=== PATIENT | male | born 1935 | race Caucasian/White ===

== ENCOUNTER 2016-08-08 08:24 | Inpatient (IN) | payer MEDICARE ==
--- NOTE | 2016-08-08 09:00 | ED ---
Fall HPI - General Chief Complaint: Fall Stated Complaint: FALL, LEFT SIDE RIB PAIN Time Seen by Provider: 08/08/16 08:50 Source: patient Mode of arrival: ambulatory - History of Present Illness Initial Comments: This is an 80-year-old male who was power washing his deck 3 days ago who was lying on her side while doing who complains of bruising and chest pain on the left side of his chest. He developed a bruise to his chin as well as his left chest wall. He's got multiple other small bruises to report he denies any headache blurry vision no nausea vomiting loss of function to his upper or lower extremities. He is on Coumadin. MD Complaint: fall - Related Data Home Medications Medication Instructions Recorded Confirmed Aspirin 81 mg PO HS 11/29/14 08/08/16 Doxazosin [Cardura] 4 mg PO HS 11/29/14 08/08/16 Finasteride [Proscar] 5 mg PO DAILY 11/29/14 08/08/16 Multivit-Min/FA/Lycopene/Lut 1 tab PO DAILY 11/29/14 08/08/16 [Centrum Silver Tablet] [place]-3 Fatty Acids/Fish Oil [Fish 1,000 mg PO BID 11/29/14 08/08/16 Oil 1,000 mg Softgel] Atorvastatin Calcium [Lipitor] 40 mg PO HS 07/07/15 08/08/16 Metoprolol Succinate (ER) [Toprol 25 mg PO HS 07/07/15 08/08/16 XL] Metoprolol Succinate (ER) [Toprol 50 mg PO QAM 07/07/15 08/08/16 XL] Warfarin Sodium [Coumadin] 6 mg PO SUMOWEFR 08/08/16 08/08/16 Warfarin Sodium [Coumadin] 6 mg PO TUTHSA 08/08/16 08/08/16 Allergies Allergy/AdvReac Type Severity Reaction Status Date / Time venom-honey bee Allergy Swelling Verified 08/08/16 09:57 [bee venom (honey bee)] Review of Systems ROS Statement: Those systems with pertinent positive or pertinent negative responses have been documented in the HPI. ROS Other: All systems not noted in ROS Statement are negative. Past Medical History Past Medical History: Atrial Fibrillation, Cancer, Prostate Disorder Additional Past Medical History / Comment(s): HX SKIN CA, SVT status post ablation History of Any Multi-Drug Resistant Organisms: None Reported Past Surgical History: Appendectomy, Heart Catheterization, Heart Catheterization With Stent, Tonsillectomy Additional Past Surgical History / Comment(s): SKIN GRAFT TO FOREHEAD R/T SKIN CA Past Anesthesia/Blood Transfusion Reactions: No Reported Reaction Past Psychological History: No Psychological Hx Reported Smoking Status: Former smoker Past Alcohol Use History: Occasional Past Drug Use History: None Reported - Past Family History Mother Family Medical History: Cancer Father Family Medical History: Cancer Additional Family Medical History / Comment(s): LEUKEMIA General Exam - General Exam Comments Initial Comments: This is a well-developed well-nourished awake alert oriented 3 male his [place] Coma Scale of 15 Limitations: no limitations General appearance: alert, in no apparent distress Head exam: Present: normocephalic, other (Swelling or bruising to the left anand no step-off no crepitation no open wounds) Eye exam: Present: normal appearance, PERRL, EOMI. Absent: scleral icterus, conjunctival injection, periorbital swelling ENT exam: Present: normal exam, mucous membranes moist Neck exam: Present: normal inspection. Absent: tenderness, meningismus, lymphadenopathy Respiratory exam: Present: normal lung sounds bilaterally, chest wall tenderness (Tenderness palpation of the anterior left chest wall and costochondral margin there is ecchymosis seen appears be dissecting caudally. No step-off no crepitation). Absent: respiratory distress, wheezes, rales, rhonchi, stridor Cardiovascular Exam: Present: regular rate, normal rhythm, normal heart sounds. Absent: systolic murmur, diastolic murmur, rubs, gallop, clicks GI/Abdominal exam: Present: soft, normal bowel sounds. Absent: distended, tenderness, guarding, rebound, rigid Extremities exam: Present: normal inspection, full ROM, normal capillary refill. Absent: tenderness, pedal edema, joint swelling, calf tenderness Back exam: Present: normal inspection Neurological exam: Present: alert, oriented X3, CN II-XII intact Psychiatric exam: Present: normal affect, normal mood Skin exam: Present: warm, dry, intact, normal color. Absent: rash Course Vital Signs 08/08/16 08/08/16 08/08/16 08:30 09:53 10:46 Temperature 96.9 F L Pulse Rate 100 88 88 Respiratory 18 16 Rate Blood Pressure 222/129 215/117 190/123 O2 Sat by Pulse 96 97 96 Oximetry 08/08/16 08/08/16 08/08/16 11:26 12:19 13:07 Temperature Pulse Rate 84 98 Respiratory 18 Rate Blood Pressure 200/136 216/126 200/122 O2 Sat by Pulse 96 92 L Oximetry 08/08/16 08/08/16 08/08/16 13:24 13:59 14:27 Temperature 97.0 F L Pulse Rate 94 92 Respiratory 18 Rate Blood Pressure 212/122 177/107 187/115 O2 Sat by Pulse 96 95 Oximetry - Reevaluation(s) Reevaluation #1: 08/08/16 14:53 I did reevaluate the patient on multiple occasions his blood pressure remained elevated in spite of multiple attempts to get it down. He will be admitted Medical Decision Making - Medical Decision Making I did discuss findings with the patient family members. The initial request and plan was to send the patient home on oral medications disorder is not felt to be nausea this time he will be admitted I did discuss the case with the covering physician Dr Todd. The patient will be admitted to Dr. Soni with cardiology consultation. - Lab Data Result diagrams: 08/08/16 08:50 08/08/16 08:50 Lab Results 08/08/16 08/08/16 08/08/16 Range/Units 08:50 08:50 08:50 WBC 7.1 (3.8-10.6) k/uL RBC 5.14 (4.30-5.90) m/uL Hgb 16.3 (13.0-17.5) gm/dL Hct 49.7 (39.0-53.0) % MCV 96.6 (80.0-100.0) fL MCH 31.7 (25.0-35.0) pg MCHC 32.8 (31.0-37.0) g/dL RDW 14.3 (11.5-15.5) % Plt Count 136 L (150-450) k/uL Neutrophils % 68 % Lymphocytes % 20 % Monocytes % 7 % Eosinophils % 3 % Basophils % 0 % Neutrophils # 4.9 (1.3-7.7) k/uL Lymphocytes # 1.4 (1.0-4.8) k/uL Monocytes # 0.5 (0-1.0) k/uL Eosinophils # 0.2 (0-0.7) k/uL Basophils # 0.0 (0-0.2) k/uL PT 21.5 H (9.0-12.0) sec INR 2.2 (<1.1) Sodium (137-145) mmol/L Potassium (3.5-5.1) mmol/L Chloride (98-107) mmol/L Carbon Dioxide (22-30) mmol/L Anion Gap mmol/L BUN (9-20) mg/dL Creatinine (0.66-1.25) mg/dL Est GFR (MDRD) Af Amer (>60 ml/min/1.73 sqM) Est GFR (MDRD) Non-Af (>60 ml/min/1.73 sqM) Glucose (74-99) mg/dL Calcium (8.4-10.2) mg/dL Magnesium (1.6-2.3) mg/dL Total Bilirubin (0.2-1.3) mg/dL AST (17-59) U/L ALT (21-72) U/L Alkaline Phosphatase (38-126) U/L Total Creatine Kinase 82 (55-170) U/L CK-MB (CK-2) 2.0 (0.0-2.4) ng/mL CK-MB (CK-2) Rel Index 2.4 NT-Pro-B Natriuret Pep pg/mL Total Protein (6.3-8.2) g/dL Albumin (3.5-5.0) g/dL 08/08/16 08/08/16 Range/Units 08:50 08:50 WBC (3.8-10.6) k/uL RBC (4.30-5.90) m/uL Hgb (13.0-17.5) gm/dL Hct (39.0-53.0) % MCV (80.0-100.0) fL MCH (25.0-35.0) pg MCHC (31.0-37.0) g/dL RDW (11.5-15.5) % Plt Count (150-450) k/uL Neutrophils % % Lymphocytes % % Monocytes % % Eosinophils % % Basophils % % Neutrophils # (1.3-7.7) k/uL Lymphocytes # (1.0-4.8) k/uL Monocytes # (0-1.0) k/uL Eosinophils # (0-0.7) k/uL Basophils # (0-0.2) k/uL PT (9.0-12.0) sec INR (<1.1) Sodium 141 (137-145) mmol/L Potassium 4.5 (3.5-5.1) mmol/L Chloride 104 (98-107) mmol/L Carbon Dioxide 27 (22-30) mmol/L Anion Gap 10 mmol/L BUN 22 H (9-20) mg/dL Creatinine 1.00 (0.66-1.25) mg/dL Est GFR (MDRD) Af Amer >60 (>60 ml/min/1.73 sqM) Est GFR (MDRD) Non-Af >60 (>60 ml/min/1.73 sqM) Glucose 117 H (74-99) mg/dL Calcium 9.4 (8.4-10.2) mg/dL Magnesium 2.1 (1.6-2.3) mg/dL Total Bilirubin 1.1 (0.2-1.3) mg/dL AST 30 (17-59) U/L ALT 52 (21-72) U/L Alkaline Phosphatase 92 (38-126) U/L Total Creatine Kinase (55-170) U/L CK-MB (CK-2) (0.0-2.4) ng/mL CK-MB (CK-2) Rel Index NT-Pro-B Natriuret Pep 3310 pg/mL Total Protein 7.0 (6.3-8.2) g/dL Albumin 4.3 (3.5-5.0) g/dL - EKG Data -: EKG Interpreted by Me (Atrial fibrillation QRS 94 QT/QTC 304/[address] configura) - Radiology Data Radiology results: report reviewed (I did review the imaging there is evidence of CHF.), image reviewed Critical Care Time Critical Care Time: Yes Critical Care Time: 39 minutes of critical care time which includes initial monitoring with a history physical labs and x-rays. Multiple reevaluation the patient response to therapy discuss with patient family members. Discussed with the [facility] physician. Initial orders and documentation of the above Disposition Clinical Impression: CHF (congestive heart failure), Accelerated hypertension, Chest wall contusion Disposition: ADMITTED IP TO THIS HOSP Condition: Stable Referrals: Piyush Vyas MD [Primary Care Provider] - 1-2 days
[2016-08-08 09:30] LABS: Basophils % (A) 0 %; CH 31.8; CHCM 33.1; Eosinophils # (A) 0.2 k/uL (0-0.7); Eosinophils % (A) 3 %; HCT 49.7 % (39.0-53.0); HDW 2.48; HGB 16.3 gm/dL (13.0-17.5); Luc # (Auto) 0.11; Luc % (Auto) 2; Lymphocytes # (A) 1.4 k/uL (1.0-4.8); Lymphocytes % (A) 20 %; MCH 31.7 pg (25.0-35.0); MCHC 32.8 g/dL (31.0-37.0); MCV 96.6 fL (80.0-100.0); Monocytes # (A) 0.5 k/uL (0-1.0); Monocytes % (A) 7 %; Neutrophils # (A) 4.9 k/uL (1.3-7.7); Neutrophils % (A) 68 %; RBC 5.14 m/uL (4.30-5.90); RDW 14.3 % (11.5-15.5); WBC 7.1 k/uL (3.8-10.6)
--- NOTE | 2016-08-08 09:38 | XR ---
EXAMINATION TYPE: XR chest 2V DATE OF EXAM: 08/08/2016 HISTORY: cough. REFERENCE: Previous study dated 08/10/2011. FINDINGS: The heart is enlarged. There is vascular congestion and subtle interstitial change. No pleu ral fluid is seen. IMPRESSION: FINDINGS MOST CONSISTENT WITH EARLY CONGESTIVE HEART FAILURE.
[2016-08-08 09:43] LABS: ALT 52 U/L (21-72); AST 30 U/L (17-59); Alkaline Phosphatase 92 U/L (38-126); Anion Gap 10 mmol/L; Blood Urea Nitrogen 22 mg/dL (9-20); Calcium 9.4 mg/dL (8.4-10.2); Carbon Dioxide 27 mmol/L (22-30); Chloride 104 mmol/L (98-107); Glucose 117 mg/dL (74-99); Magnesium 2.1 mg/dL (1.6-2.3); Non-African American GFR(MDRD) >60 (>60 ml/min/1.73 sqM); Potassium 4.5 mmol/L (3.5-5.1); Sodium 141 mmol/L (137-145); Total Bilirubin 1.1 mg/dL (0.2-1.3)
[2016-08-08 09:44] LABS: INR 2.2 (<1.1); Prothrombin Time 21.5 sec (9.0-12.0)
[2016-08-08] MEDS ORDERED: METOPROLOL SUCCINATE (ER) 50 MG TAB.ER.24H PO STA (10:27)
[2016-08-08] MEDS ORDERED: hydrALAZINE HCL 20 MG/ML 1 ML VIAL IVP STA (11:38)
[2016-08-08] MEDS ORDERED: FUROSEMIDE 10 MG/ML 4 ML VIAL IV STA (13:06)
[2016-08-08] MEDS ORDERED: NITROGLYCERIN OINT 1 INCH/GM PACKET TOPICAL STA (13:06)
[2016-08-08] MEDS ORDERED: METOPROLOL TARTRATE 5 MG/5 ML VIAL IVP STA (13:44)
[2016-08-08] MEDS ORDERED: LABETALOL 5 MG/ML VIAL MDV IVP STA (15:10)
[2016-08-08] MEDS ORDERED: LABETALOL 5 MG/ML VIAL MDV IVP PRN (15:12)
[2016-08-08] MEDS: SODIUM CHLORIDE 0.9% 1,000 ML IV SCH (16:59)
[2016-08-08] MEDS: NITROGLYCERIN OINT 1 INCH/GM PACKET TOPICAL SCH ×2 (17:02→21:14)
[2016-08-08] MEDS: WARFARIN 3 MG TAB PO SCH (17:03)
[2016-08-08] MEDS ORDERED: NON-FORMULARY DRUG (Omega-3 Fatty Acids/Fish Oil [Fish Oil 1,000 Mg Softgel] 1,000 MG) PO SCH (21:00)
[2016-08-08] MEDS ORDERED: ASPIRIN 81 MG CHEW PO SCH (21:00)
[2016-08-08] MEDS: METOPROLOL SUCCINATE (ER) 25 MG TAB.ER.24H PO SCH (21:10)
[2016-08-08] MEDS: ATORVASTATIN 40 MG TAB PO SCH (21:10)
[2016-08-08] MEDS: DOXAZOSIN 4 MG TAB PO SCH (21:10)
[2016-08-08] MEDS: FUROSEMIDE 10 MG/ML 4 ML VIAL IV SCH (23:03)
[2016-08-09] MEDS: MULTIVITAMINS, THERA 1 EACH TAB PO SCH (07:51)
[2016-08-09] MEDS: FINASTERIDE 5 MG TAB PO SCH (07:52)
[2016-08-09] MEDS: METOPROLOL SUCCINATE (ER) 50 MG TAB.ER.24H PO SCH (07:52)
[2016-08-09] MEDS: NITROGLYCERIN OINT 1 INCH/GM PACKET TOPICAL SCH ×2 (07:56→12:06)
[2016-08-09] MEDS ORDERED: traMADol 50 MG TAB PO PRN (10:32)
--- NOTE | 2016-08-09 10:36 | P.HPIM ---
History of Present Illness H&P Date: 08/09/16 Chief Complaint: Left rib pain This is a 80-year-old male with a known history of hypertension, chronic atrial fibrillation, SVT with previous cardiac ablation, coronary artery disease with cardiac stent and gallstone pancreatitis. Patient reports doing work in his garage on . He lost his balance and fell hitting his left side and chin. There is no loss of consciousness. Family is able to help him get up. He was doing fine, but as the days progressed into Tuesday and Tuesday his pain became very severe he came into the emergency room for further evaluation and treatment. Chest x-ray had shown findings of early CHF he was started on IV Lasix. Cardiology consulted. BNP was 3310. EKG had shown atrial fibrillation with a heart rate of 100. Troponin minimally elevated at 0.042. Patient still complaining of some left-sided rib pain. He also had accelerated hypertension and hypertensive emergency with blood pressure of 222/129 in the emergency room. He received IV blood pressure medications. Blood pressures show improvement. His likely related to his pain. Patient reports taking his home blood pressure medications. Patient denies any chest pain or shortness of breath. Denies any lower extremity edema. Denies any nausea or vomiting. Denies any bowel movement changes or urinary symptoms. Patient had no loss of consciousness. And does not have frequent falls. Review of Systems Please refer to HPI otherwise unremarkable Past Medical History Past Medical History: Atrial Fibrillation, Cancer, Hyperlipidemia, Hypertension , Prostate Disorder Additional Past Medical History / Comment(s): HX SKIN CA, SVT status post ablation. FAILED STRESS TEST IN [place] AND GOT 3 STENTS 04/2016, melanoma History of Any Multi-Drug Resistant Organisms: None Reported Past Surgical History: Appendectomy, Heart Catheterization, Heart Catheterization With Stent, Tonsillectomy Additional Past Surgical History / Comment(s): SKIN GRAFT TO FOREHEAD R/T SKIN CA Past Anesthesia/Blood Transfusion Reactions: No Reported Reaction Date of Last Stent Placement:: 04/2016 Smoking Status: Former smoker - Past Family History Mother Family Medical History: Cancer Father Family Medical History: Cancer Additional Family Medical History / Comment(s): LEUKEMIA Medications and Allergies Home Medications Medication Instructions Recorded Confirmed Type Aspirin 81 mg PO HS 11/29/14 08/08/16 History Doxazosin [Cardura] 4 mg PO HS 11/29/14 08/08/16 History Finasteride [Proscar] 5 mg PO DAILY 11/29/14 08/08/16 History Multivit-Min/FA/Lycopene/Lut 1 tab PO DAILY 11/29/14 08/08/16 History [Centrum Silver Tablet] [place]-3 Fatty Acids/Fish Oil [Fish 1,000 mg PO BID 11/29/14 08/08/16 History Oil 1,000 mg Softgel] Atorvastatin Calcium [Lipitor] 40 mg PO HS 07/07/15 08/08/16 History Metoprolol Succinate (ER) [Toprol 25 mg PO HS 07/07/15 08/08/16 History XL] Metoprolol Succinate (ER) [Toprol 50 mg PO QAM 07/07/15 08/08/16 History XL] Warfarin Sodium [Coumadin] 3 mg PO SUMOWEFR 08/08/16 08/08/16 History Warfarin Sodium [Coumadin] 6 mg PO TUTHSA 08/08/16 08/08/16 History Allergies Allergy/AdvReac Type Severity Reaction Status Date / Time venom-honey bee Allergy Swelling Verified 08/08/16 09:57 [bee venom (honey bee)] Physical Exam Vitals: Vital Signs Temp Pulse Pulse Resp BP BP Pulse Ox 08/09/16 08:00 97.0 F L 79 18 147/90 91 L 08/09/16 03:19 97.4 F L 84 16 121/79 94 L 08/08/16 23:40 97.7 F 85 16 111/70 93 L 08/08/16 20:00 98.1 F 89 16 131/75 94 L 08/08/16 15:45 97.0 F L 91 18 154/112 95 08/08/16 15:17 97.0 F L 86 16 186/105 96 08/08/16 15:07 89 20 176/111 98 08/08/16 14:27 92 187/115 95 08/08/16 13:59 177/107 08/08/16 13:24 97.0 F L 94 18 212/122 96 08/08/16 13:07 200/122 08/08/16 12:19 98 18 216/126 92 L 08/08/16 11:26 84 200/136 96 08/08/16 10:46 88 190/123 96 Intake and Output 08/08/16 08/09/1608/09/17 22:59 06:59 14:59 Intake Total 20 10 Balance 20 10 Intake: IV 20 10 Sodium Chloride 0.9% 1, 20 10 000 ml @ 20 mls/hr IV . Q24H ANTONIO Rx#:[id number] Other: Voiding Method Urinal Urinal Weight 95.708 kg 90.2 kg Head normocephalic Neck supple Lungs clear to auscultation bilaterally no wheezing or crackles. Tenderness with palpation of the left rib cage. No bruising or hematoma noted Heart regular rate and rhythm S1-S2, no rub or gallop Abdomen is soft nontender nondistended positive bowel sounds no hepatosplenomegaly Extremities no edema Neuro alert and orientated to 3 Results CBC & Chem 7: 08/08/16 08:50 08/08/16 08:50 Labs: Abnormal Lab Results - Last 24 Hours (Table) 08/09/16 Range/Units 03:22 Troponin I 0.042 H* (0.000-0.034) ng/mL Thrombosis Risk Factor Assmnt - Choose All That Apply Any of the Below Risk Factors Present?: No Other Risk Factors: No Other congenital or acquired thrombophilia - If yes, enter type in comment: Yes Thrombosis Risk Factor Assessment Level: Very Low Risk Assessment and Plan Plan: 1. Acute CHF exacerbation: Chest x-ray showing findings of early CHF. BNP elevated at 3310. Patient started on IV Lasix 40 every 12 hours in the emergency room. Cardiology has been consulted. Check echo 2. Fall with left-sided rib pain. X-rays of the left ribs will be completed. Add Ultram for pain control 3. Accelerated hypertension hypertensive emergency on admission. Likely related to pain. Patient was given IV hydralazine, IV labetalol and IV metoprolol. Blood pressures are doing better. Patient will be evaluated by cardiology 4. Chronic atrial fibrillation: Continue Coumadin. Monitor daily PT/INR's. Continue metoprolol 5. Hyperlipidemia 6. History of melanoma 7. History of coronary artery disease with cardiac stents 8. History of essential hypertension Consult physical therapy GI prophylaxis Pepcid and DVT prophylaxis Coumadin Time with Patient: Greater than 30 (Greater than 50% of the total time spent in counseling and coordination of care.I performed an examination of the patient and discussed their management with the physician Java [employer] Developer. I have reviewed the Physician Java [employer] Developer's notes and agree with the documented findings and plan of care)
[2016-08-09] MEDS: FUROSEMIDE 10 MG/ML 4 ML VIAL IV SCH (12:07)
[2016-08-09] MEDS: SODIUM CHLORIDE 0.9% 1,000 ML IV SCH (12:09)
[2016-08-09 13:03] VITALS: BMI 26.2
--- NOTE | 2016-08-09 14:39 | P.CRDCN ---
History of Present Illness Consult date: 08/09/16 Requesting physician: Joaquim Soni Reason for Consult (text): Elevated troponin Chief complaint: Fall History of present illness: This is an 80-year-old gentleman who follows with Dr. Dolores Deutsch in the office. He has a known history of coronary artery disease, most recently patient underwent stenting of the ramus intermediate and circumflex in February of this year in [place]. He also had unsuccessful angioplasty of the RCA performed in April of this year in [place]. History also of hypertension, hyperlipidemia, family history of premature coronary artery disease, prior SVT ablation. History also of paroxysmal atrial fibrillation. He presented to the hospital after experiencing a follow-up urine he states that he was working on a bottle washer machine in his garage, went to reach for something, became unsteady and fell. He denies any syncope. Overall the patient states she's been feeling well at home. Patient was having significant pain in his abdomen and her rib area and for this reason was ultimately brought to the hospital. BNP level was obtained which came back to be 3300, troponin was also minimally elevated urine patient's blood pressure was elevated in the emergency room. For all of these above reasons cardiology consultation was requested on this admission. Patient denies any overt shortness of breath, he denies having any chest discomfort. EKG shows atrial fibrillation with a controlled ventricular response. Chest x- ray revealed findings most consistent with early congestive heart failure. Platelet count 136, INR 2.2, potassium 4.5, BUN 22, creatinine 1.0. BNP 3310. Troponin 0.032, 042, Past Medical History Past Medical History: Atrial Fibrillation, Cancer, Hyperlipidemia, Hypertension , Prostate Disorder Additional Past Medical History / Comment(s): HX SKIN CA, SVT status post ablation. FAILED STRESS TEST IN [place] AND GOT 3 STENTS 04/2016, melanoma History of Any Multi-Drug Resistant Organisms: None Reported Past Surgical History: Appendectomy, Heart Catheterization, Heart Catheterization With Stent, Tonsillectomy Additional Past Surgical History / Comment(s): SKIN GRAFT TO FOREHEAD R/T SKIN CA Past Anesthesia/Blood Transfusion Reactions: No Reported Reaction Date of Last Stent Placement:: 04/2016 Smoking Status: Former smoker - Past Family History Mother Family Medical History: Cancer Father Family Medical History: Cancer Additional Family Medical History / Comment(s): LEUKEMIA Medications and Allergies Home Medications Medication Instructions Recorded Confirmed Type Aspirin 81 mg PO HS 11/29/14 08/08/16 History Doxazosin [Cardura] 4 mg PO HS 11/29/14 08/08/16 History Finasteride [Proscar] 5 mg PO DAILY 11/29/14 08/08/16 History Multivit-Min/FA/Lycopene/Lut 1 tab PO DAILY 11/29/14 08/08/16 History [Centrum Silver Tablet] [place]-3 Fatty Acids/Fish Oil [Fish 1,000 mg PO BID 11/29/14 08/08/16 History Oil 1,000 mg Softgel] Atorvastatin Calcium [Lipitor] 40 mg PO HS 07/07/15 08/08/16 History Metoprolol Succinate (ER) [Toprol 25 mg PO HS 07/07/15 08/08/16 History XL] Metoprolol Succinate (ER) [Toprol 50 mg PO QA 07/07/15 08/08/16 History XL] Warfarin Sodium [Coumadin] 3 mg PO SUMOWEFR 08/08/16 08/08/16 History Warfarin Sodium [Coumadin] 6 mg PO TUTHSA 08/08/16 08/08/16 History Allergies Allergy/AdvReac Type Severity Reaction Status Date / Time venom-honey bee Allergy Swelling Verified 08/08/16 09:57 [bee venom (honey bee)] Physical Exam Vitals: Vital Signs Temp Pulse Pulse Resp BP BP Pulse Ox 08/09/16 11:42 96.6 F L 86 18 119/67 92 L 08/09/16 08:00 97.0 F L 79 18 147/90 91 L 08/09/16 03:19 97.4 F L 84 16 121/79 94 L 08/08/16 23:40 97.7 F 85 16 111/70 93 L 08/08/16 20:00 98.1 F 89 16 131/75 94 L 08/08/16 15:45 97.0 F L 91 18 154/112 95 08/08/16 15:17 97.0 F L 86 16 186/105 96 08/08/16 15:07 89 20 176/111 98 08/08/16 14:27 92 187/115 95 Intake and Output 08/08/16 08/09/16 08/09/16 22:59 06:59 14:59 Intake Total 20 10 Balance 20 10 Intake: IV 20 10 Sodium Chloride 0.9% 1, 20 10 000 ml @ 20 mls/hr IV . Q24H ANTONIO Rx#:[id number] Other: Voiding Method Urinal Urinal Weight 95.708 kg 90.2 kg 90.2 kg Patient Weight 08/10/16 06:59 Weight 90.2 kg PHYSICAL EXAMINATION: HEENT: Head is atraumatic, normocephalic. Pupils equal, round. Neck is supple. There is no elevated jugular venous pressure. HEART EXAMINATION: Heart S1 and S2 irregular irregular CHEST EXAMINATION: Clear with mild diminished air entry to the bases. ABDOMEN: Soft, nontender. Bowel sounds are heard. No organomegaly noted. Positive left-sided rib pain EXTREMITIES: 2+ peripheral pulses with no evidence of peripheral edema and no calf tenderness noted. NEUROLOGIC patient is awake, alert and oriented -3. . Results 08/08/16 08:50 08/08/16 08:50 Cardiac Enzymes 08/08/16 08/09/16 Range/Units 17:35 03:22 Troponin I 0.032 0.042 H* (0.000-0.034) ng/mL Current Medications Generic Name Dose Route Start Last Admin Trade Name Freq PRN Reason Stop Dose Admin Aspirin 81 mg 08/08/16 21:00 08/08/16 21:10 Aspirin PO 81 mg HS ANTONIO Administration Atorvastatin Calcium 40 mg 08/08/16 21:00 08/08/16 21:10 Lipitor PO 40 mg HS ANTONIO Administration Doxazosin Mesylate 4 mg 08/08/16 21:00 08/08/16 21:10 Cardura PO 4 mg HS ANTONIO Administration Famotidine 20 mg 08/10/16 09:00 Pepcid PO DAILY ANTONIO Finasteride 5 mg 08/09/16 09:00 08/09/16 07:52 Proscar PO 5 mg DAILY ANTONIO Administration Furosemide 40 mg 08/09/16 00:00 08/09/16 12:07 Lasix IV 40 mg Q12H ANTONIO Administration Sodium Chloride 1,000 mls @ 20 mls/hr 08/08/16 15:00 08/09/16 12:09 Saline 0.9% IV Not Given .Q24H ANTONIO Labetalol HCl 20 mg 08/08/16 15:12 Trandate IVP Q10M PRN HTN SBP >180, DBP >110 Metoprolol Succinate 50 mg 08/09/16 09:00 08/09/16 07:52 Toprol Xl PO 50 mg QAM ANTONIO Administration Metoprolol Succinate 25 mg 08/08/16 21:00 08/08/16 21:10 Toprol Xl PO 25 mg HS ANTONIO Administration Multivitamins 1 each 08/09/16 12:00 08/09/16 07:51 Theragran PO 1 each 1200 [facility] Administration Nitroglycerin 1 inch 08/08/16 18:00 08/09/16 12:06 Nitro-Bid Oint TOPICAL 1 inch QID ANTONIO Administration Tramadol HCl 50 mg 08/09/16 10:32 Ultram PO BID PRN Pain Warfarin Sodium 6 mg 08/10/16 18:00 Coumadin PO TuThSa@1800 AN[facility]IO Warfarin Sodium 3 mg 08/08/16 18:00 08/08/16 17:03 Coumadin PO 3 mg [id number]@1800 [facility] Administration Intake and Output 08/08/16 08/09/16 08/09/16 22:59 06:59 14:59 Intake Total 20 10 Balance 20 10 Intake: IV 20 10 Sodium Chloride 0.9% 1, 20 10 000 ml @ 20 mls/hr IV . Q24H [facility] Rx#:[id number] Other: Voiding Method Urinal Urinal Weight 95.708 kg 90.2 kg 90.2 kg Patient Weight 08/10/16 06:59 Weight 90.2 kg 08/08/16 08:50 08/08/16 08:50 EKG Interpretations (text) EKG shows atrial fibrillation with a controlled ventricular response Assessment and Plan Plan: Assessment and plan #1 fall with no clear-cut evidence of syncope #2 diastolic congestive heart failure acute on chronic #3 accelerated hypertension #4 hyperlipidemia #5 chronic persistent atrial fibrillation, on Coumadin #6 recent stent placement in February of this year, on Brilinta at home #7 history of hypertension #8 history of melanoma #9 abnormal troponin, not consistent with acute coronary syndrome, likely secondary to oxygen supply and demand mismatch Plan We will obtain a repeat echocardiogram with Doppler study. Continue IV Lasix. We will also resume the patient's Brilinta 90 mg one tablet by mouth twice a day continue Coumadin, discontinue aspirin. Continue Nitropaste. Further recommendations to follow. DNP note has been reviewed, I agree with a documented findings and plan of care. Patient was seen and examined.
--- NOTE | 2016-08-09 15:14 | XR ---
Left RIBS HISTORY: Trauma and pain Comparison to chest x-ray 08/08/2016 4 views of the left RIBS Bone mineralization is reduced which may limit sensitivity. No displaced rib fracture evident. Lyons ry artery calcifications and possibly stent noted. IMPRESSION: Bone scan could be performed for increased sensitivity as indicated should occult fractur e be suspected clinically.
[2016-08-09] MEDS: LISINOPRIL 5 MG TAB PO SCH (17:06)
[2016-08-09] MEDS: CLOPIDOGREL 75 MG TAB PO SCH (17:06)
[2016-08-09 17:56] LABS: INR 2.2 (<1.1); Prothrombin Time 20.9 sec (9.0-12.0)
[2016-08-09] MEDS: WARFARIN 3 MG TAB PO SCH (19:02)
--- NOTE | 2016-08-09 20:34 | CONS ---
DATE OF CONSULTATION: ADDENDUM: Consultation dictated by Dee Richards DNP reviewed. This patient primarily came with a fall. Patient's blood pressure was significantly elevated in the emergency room. Patient has evidence of mild congestive heart failure on the chest x-ray and his BNP level is 3300. Borderline elevation in the troponin could be secondary to elevated blood pressure supply and demand mismatch. Patient is not having any symptoms of angina. Patient was taking Brilinta, Coumadin and aspirin at home. We will switch him to Coumadin and Plavix only and stopped the aspirin because of he is at a higher risk of bleeding with a triple drug therapy.
[2016-08-09] MEDS: ATORVASTATIN 40 MG TAB PO SCH (20:49)
[2016-08-09] MEDS: DOXAZOSIN 4 MG TAB PO SCH (20:49)
[2016-08-09] MEDS: METOPROLOL SUCCINATE (ER) 25 MG TAB.ER.24H PO SCH (20:49)
[2016-08-10] MEDS: FUROSEMIDE 10 MG/ML 4 ML VIAL IV SCH ×2 (00:37→10:50)
[2016-08-10 06:38] LABS: Basophils % (A) 0 %; CH 31.8; CHCM 33.5; Eosinophils # (A) 0.1 k/uL (0-0.7); Eosinophils % (A) 2 %; HCT 44.8 % (39.0-53.0); HDW 2.42; HGB 14.4 gm/dL (13.0-17.5); Luc # (Auto) 0.17; Luc % (Auto) 3; Lymphocytes # (A) 1.1 k/uL (1.0-4.8); Lymphocytes % (A) 17 %; MCH 30.7 pg (25.0-35.0); MCHC 32.2 g/dL (31.0-37.0); MCV 95.4 fL (80.0-100.0); Mean Platelet Volume 7.8; Monocytes # (A) 0.5 k/uL (0-1.0); Monocytes % (A) 8 %; Neutrophils # (A) 4.8 k/uL (1.3-7.7); Neutrophils % (A) 71 %; RDW 14.3 % (11.5-15.5); WBC 6.8 k/uL (3.8-10.6); WBC (Perox) 6.78
[2016-08-10 06:42] LABS: Prothrombin Time 19.7 sec (9.0-12.0)
[2016-08-10 06:52] LABS: ALT 43 U/L (21-72); AST 19 U/L (17-59); Alkaline Phosphatase 78 U/L (38-126); Anion Gap 9 mmol/L; Blood Urea Nitrogen 33 mg/dL (9-20); Calcium 8.9 mg/dL (8.4-10.2); Carbon Dioxide 29 mmol/L (22-30); Chloride 102 mmol/L (98-107); Glucose 111 mg/dL (74-99); Non-African American GFR(MDRD) 58 (>60 ml/min/1.73 sqM); Potassium 3.5 mmol/L (3.5-5.1); Sodium 140 mmol/L (137-145); Total Protein 5.5 g/dL (6.3-8.2)
[2016-08-10] MEDS: LISINOPRIL 5 MG TAB PO SCH (07:50)
[2016-08-10] MEDS: FINASTERIDE 5 MG TAB PO SCH (07:50)
[2016-08-10] MEDS: CLOPIDOGREL 75 MG TAB PO SCH (07:50)
[2016-08-10] MEDS: METOPROLOL SUCCINATE (ER) 50 MG TAB.ER.24H PO SCH (07:51)
[2016-08-10] MEDS: MULTIVITAMINS, THERA 1 EACH TAB PO SCH (07:51)
[2016-08-10] MEDS ORDERED: FAMOTIDINE 20 MG TAB PO SCH (09:00)
[2016-08-10 09:21] VITALS: RESP 18
--- NOTE | 2016-08-10 10:08 | ECHOF ---
Referral Reason:check EF MEASUREMENTS -------- HEIGHT: 182.9 cm WEIGHT: 89.8 kg BP: 130/40 IVSd: 1.5 cm (0.6 - 1.1) LVIDd: 4.6 cm (3.9 - 5.3) LVPWd: 1.4 cm (0.6 - 1.1) IVSs: 1.8 cm LVIDs: 3.8 cm LVPWs: 1.5 cm LA Diam: 4.6 cm (2.7 - 3.8) LAESV Index (A-L): 43.06 ml/m Ao Diam: 3.2 cm (2.0 - 3.7) LA Diam: 5.2 cm (2.7 - 3.8) MV EXCURSION: 20.390 mm (> 18.000) MV EF SLOPE: 111 mm/s (70 - 150) EPSS: 0.7 cm MV E Ananda: 0.67 m/s MV DecT: 179 ms MV A Ananda: 0.29 m/s MV E/A Ratio: 2.35 RAP: 5.00 mmHg RVSP: 19.02 mmHg FINDINGS -------- Atrial fibrillation. This was a technically adequate study. There is moderate concentric left ventricular hypertrophy. Overall left ventricular systolic function is low-normal with, an EF between 50 - 55 %. The right ventricle is normal in size. LA is moderately dilated 34-39 ml/m2 The right atrial size is normal. There is mild aortic valve sclerosis. Trace to mild aortic regurgitation. Mild mitral annular calcification present. Mild mitral regurgitation is present. Mild tricuspid regurgitation present. There is no evidence of pulmonary hypertension. The right ventricular systolic pressure, as measured by Doppler, is 19.02mmHg. There is no pulmonic regurgitation present. The aortic root size is normal. There is a small, generalized pericardial effusion present. CONCLUSIONS -------- 1. There is moderate concentric left ventricular hypertrophy. 2. The right ventricular systolic pressure, as measured by Doppler, is 19.02mmHg. 3. There is no pulmonic regurgitation present. 4. The aortic root size is normal. 5. There is a small, generalized pericardial effusion present. 6. Overall left ventricular systolic function is low-normal with, an EF between 50 - 55 %. 7. LA is moderately dilated 34-39 ml/m2 8. There is mild aortic valve sclerosis. 9. Trace to mild aortic regurgitation. 10. Mild mitral annular calcification present. 11. Mild mitral regurgitation is present. 12. Mild tricuspid regurgitation present. 13. There is no evidence of pulmonary hypertension. WINDOW CLERK: Irina Guidry RDCS
[2016-08-10] MEDS: SODIUM CHLORIDE 0.9% 1,000 ML IV SCH (15:12)
--- NOTE | 2016-08-10 15:48 | P.PN ---
Subjective Principal diagnosis: Fall This is an 80-year-old gentleman who follows with Dr. Dolores Deutsch in the office. He has a known history of coronary artery disease, most recently patient underwent stenting of the ramus intermediate and circumflex in February of this year in [place]. He also had unsuccessful angioplasty of the RCA performed in April of this year in [place]. History also of hypertension, hyperlipidemia, family history of premature coronary artery disease, prior SVT ablation. History also of paroxysmal atrial fibrillation. He presented to the hospital after experiencing a follow-up urine he states that he was working on a stator plate washer in his garage, went to reach for something, became unsteady and fell. He denies any syncope. Overall the patient states she's been feeling well at home. Patient was having significant pain in his abdomen and her rib area and for this reason was ultimately brought to the hospital. BNP level was obtained which came back to be 3300, troponin was also minimally elevated urine patient's blood pressure was elevated in the emergency room. For all of these above reasons cardiology consultation was requested on this admission. Patient was initiated on IV Lasix on admission, his weight today is down 5 kg from admission. We also discontinued the Brilinta and recommended that the patient take Plavix and Coumadin. Aspirin was also discontinued. Overall the patient feels well and is hoping to be discharged home today. From cardiology's perspective he may be able to be discharged to follow-up in the office post discharge Objective - Vital Signs Vital signs: Vital Signs Temp 97.6 F 08/10/16 11:50 Pulse 79 08/10/16 11:50 Resp 18 08/10/16 11:50 BP 105/68 08/10/16 11:50 Pulse Ox 93 L 08/10/16 11:50 Intake & Output 08/09/16 08/10/16 08/10/16 18:59 06:59 18:59 Intake Total 480 480 Output Total 600 600 Balance -120 -600 480 Weight 90.2 kg 90.7 kg Intake: Oral 480 480 Output: Urine 600 600 Other: Voiding Method Urinal Urinal Urinal # Voids 1 - Exam PHYSICAL EXAMINATION: HEENT: Head is atraumatic, normocephalic. Pupils equal, round. Neck is supple. There is no elevated jugular venous pressure. HEART EXAMINATION: Heart S1 and S2 irregular irregular CHEST EXAMINATION: Clear with mild diminished air entry to the bases. ABDOMEN: Soft, nontender. Bowel sounds are heard. No organomegaly noted. Positive left-sided rib pain EXTREMITIES: 2+ peripheral pulses with no evidence of peripheral edema and no calf tenderness noted. NEUROLOGIC patient is awake, alert and oriented -3. . - Labs CBC & Chem 7: 08/10/16 06:16 08/10/16 06:16 Labs: Abnormal Lab Results - Last 24 Hours (Table) 08/09/16 08/10/16 08/10/16 Range/Units 17:28 06:16 06:16 Plt Count 139 L (150-450) k/uL PT 20.9 H 19.7 H (9.0-12.0) sec BUN (9-20) mg/dL Glucose (74-99) mg/dL Total Protein (6.3-8.2) g/dL Albumin (3.5-5.0) g/dL 08/10/16 Range/Units 06:16 Plt Count (150-450) k/uL PT (9.0-12.0) sec BUN 33 H (9-20) mg/dL Glucose 111 H (74-99) mg/dL Total Protein 5.5 L (6.3-8.2) g/dL Albumin 3.4 L (3.5-5.0) g/dL Assessment and Plan Plan: Assessment and plan #1 fall with no clear-cut evidence of syncope #2 diastolic congestive heart failure acute on chronic #3 accelerated hypertension #4 hyperlipidemia #5 chronic persistent atrial fibrillation, on Coumadin #6 recent stent placement in February of this year, on Brilinta at home #7 history of hypertension #8 history of melanoma #9 abnormal troponin, not consistent with acute coronary syndrome, likely secondary to oxygen supply and demand mismatch Plan Echocardiogram with Doppler study revealed an ejection fraction of 50-55%. We' ll discontinue the IV Lasix and start the patient on Lasix 20 mg by mouth daily. Patient may be able to be discharged from cardiology's perspective to follow-up in the office post discharge. DNP note has been reviewed, I agree with a documented findings and plan of care. Patient was seen and examined.
[2016-08-10 16:01] VITALS: BP 119/73; PULSE 84; TEMP 97
--- NOTE | 2016-08-10 16:17 | P.DS ---
Providers Date of admission: 08/08/16 14:59 Expected date of discharge: 08/10/16 Attending physician: Joaquim Soni Consults: 08/08/16 14:59 Consult Physician Routine Consulting Provider: Joanne Deutsch Consult Reason/Comments: CHF, hypertension Do you want consulting provider notified?: Yes Primary care physician: Piyush Gutierrez [facility] Course: Diagnoses on discharge 1. Acute CHF exacerbation: Chest x-ray showing findings of early CHF. BNP elevated at 3310. Patient started on IV Lasix 40 every 12 hours in the emergency room. Cardiology has been consulted. Check echo 2. Fall with left-sided rib pain. X-rays of the left ribs will be completed. Add Ultram for pain control 3. Accelerated hypertension hypertensive emergency on admission. Likely related to pain. Patient was given IV hydralazine, IV labetalol and IV metoprolol. Blood pressures are doing better. Patient will be evaluated by cardiology 4. Chronic atrial fibrillation: Continue Coumadin. Monitor daily PT/INR's. Continue metoprolol 5. Hyperlipidemia 6. History of melanoma 7. History of coronary artery disease with cardiac stents 8. History of essential hypertension Hospital course This is a 80-year-old male with a known history of hypertension, chronic atrial fibrillation, SVT with previous cardiac ablation, coronary artery disease with cardiac stent and gallstone pancreatitis. Patient reports doing work in his garage on . He lost his balance and fell hitting his left side and chin. There is no loss of consciousness. Family is able to help him get up. He was doing fine, but as the days progressed into Tuesday and Tuesday his pain became very severe he came into the emergency room for further evaluation and treatment. Chest x-ray had shown findings of early CHF he was started on IV Lasix. Cardiology consulted. BNP was 3310. EKG had shown atrial fibrillation with a heart rate of 100. Troponin minimally elevated at 0.042. Patient still complaining of some left-sided rib pain. He also had accelerated hypertension and hypertensive emergency with blood pressure of 222/129 in the emergency room. He received IV blood pressure medications. Blood pressures show improvement. His likely related to his pain. Patient reports taking his home blood pressure medications. Patient denies any chest pain or shortness of breath. Denies any lower extremity edema. Denies any nausea or vomiting. Denies any bowel movement changes or urinary symptoms. Patient had no loss of consciousness. And does not have frequent falls. Patient received IV Lasix during this admission, he was evaluated by cardiology , he improved significantly, he was switched to oral Lasix and was discharged home on 08/10/2016 Due to high risk of bleeding aspirin was discontinued, Brilinta was switched to Plavix and coumadin was continued follow up with primary care physician within one week Follow-up with cardiology in 1-2 weeks Patient Condition at Discharge: Stable Plan - Discharge Summary New Discharge Prescriptions: New Clopidogrel [Plavix] 75 mg PO DAILY tab Furosemide [Lasix] 20 mg PO DAILY tab Lisinopril [Zestril] 5 mg PO DAILY tab Continue Arnot-3 Fatty Acids/Fish Oil [Fish Oil 1,000 mg Softgel] 1,000 mg PO BID Multivit-Min/FA/Lycopene/Lut [Centrum Silver Tablet] 1 tab PO DAILY Finasteride [Proscar] 5 mg PO DAILY Doxazosin [Cardura] 4 mg PO HS Atorvastatin Calcium [Lipitor] 40 mg PO HS Metoprolol Succinate (ER) [Toprol XL] 25 mg PO HS Metoprolol Succinate (ER) [Toprol XL] 50 mg PO QAM Warfarin Sodium [Coumadin] 6 mg PO TUTHSA Warfarin Sodium [Coumadin] 3 mg PO SUMOWEFR Discontinued Aspirin 81 mg PO HS Discharge Medication List Doxazosin [Cardura] 4 mg PO HS 11/29/14 [History] Finasteride [Proscar] 5 mg PO DAILY 11/29/14 [History] Multivit-Min/FA/Lycopene/Lut [Centrum Silver Tablet] 1 tab PO DAILY 11/29/14 [ History] Arnot-3 Fatty Acids/Fish Oil [Fish Oil 1,000 mg Softgel] 1,000 mg PO BID [History] Atorvastatin Calcium [Lipitor] 40 mg PO HS 07/07/15 [History] Metoprolol Succinate (ER) [Toprol XL] 25 mg PO HS 07/07/15 [History] Metoprolol Succinate (ER) [Toprol XL] 50 mg PO QAM 07/07/15 [History] Warfarin Sodium [Coumadin] 3 mg PO SUMOWEFR 08/08/16 [History] Warfarin Sodium [Coumadin] 6 mg PO TUTHSA 08/08/16 [History] Clopidogrel [Plavix] 75 mg PO DAILY tab 08/10/16 [Rx] Furosemide [Lasix] 20 mg PO DAILY tab 08/10/16 [Rx] Lisinopril [Zestril] 5 mg PO DAILY tab 08/10/16 [Rx] Follow up Appointment(s)/Referral(s): [facility], [NON-STAFF] - Piyush Vyas MD [Primary Care Provider] - 1-2 days
[2016-08-10] MEDS ORDERED: WARFARIN 3 MG TAB PO SCH (18:00)
[2016-08-11] MEDS ORDERED: FUROSEMIDE 20 MG TAB PO SCH (09:00)
== END 2016-08-10 17:06 | disposition home health service (06) | DRG 304 ==
LOC: EC 08:24 → 6SEL 14:59
PROVIDERS: ADMIT Internal Medicine; ATTEND Internal Medicine
DX: I16.1 Hypertensive emergency (principal); I50.33 Acute on chronic diastolic (congestive) heart failure; I48.1 Persistent atrial fibrillation; I48.2 Chronic atrial fibrillation; I11.0 Hypertensive heart disease with heart failure; I48.0 Paroxysmal atrial fibrillation; S80.12XA Contusion of left lower leg, initial encounter; S20.212A Contusion of left front wall of thorax, initial encounter; S00.83XA Contusion of other part of head, initial encounter; I25.10 Atherosclerotic heart disease of native coronary artery without angina pectoris; N42.9 Disorder of prostate, unspecified; R40.2410 Glasgow coma scale score 13-15, unspecified time; R74.8 Abnormal levels of other serum enzymes; E78.5 Hyperlipidemia, unspecified; Z85.820 Personal history of malignant melanoma of skin; Z87.891 Personal history of nicotine dependence; Z95.5 Presence of coronary angioplasty implant and graft; Z80.6 Family history of leukemia; Z79.82 Long term (current) use of aspirin; Z79.899 Other long term (current) drug therapy; Z79.01 Long term (current) use of anticoagulants; Z82.49 Family history of ischemic heart disease and other diseases of the circulatory system; Z86.79 Personal history of other diseases of the circulatory system; Z91.030 Bee allergy status; Z90.49 Acquired absence of other specified parts of digestive tract; Z71.3 Dietary counseling and surveillance; Z87.19 Personal history of other diseases of the digestive system; W01.10XA Fall on same level from slipping, tripping and stumbling with subsequent striking against unspecified object, initial encounter; Y93.H9 Activity, other involving exterior property and land maintenance, building and construction; Y92.015 Private garage of single-family (private) house as the place of occurrence of the external cause
CPT/HCPCS: 36415; 71020; 80053; 82550; 82553; 83735; 83880; 84484; 85025; 85610; 93005; 93306; 96374; 96375; 99285

== ENCOUNTER 2016-08-31 06:03 | Emergency (ER) | payer MEDICARE ==
[2016-08-31 07:11] LABS: Basophils # (A) 0.1 k/uL (0-0.2); Basophils % (A) 1 %; CH 31.7; CHCM 33.7; Eosinophils # (A) 0.2 k/uL (0-0.7); Eosinophils % (A) 2 %; HCT 45.9 % (39.0-53.0); HDW 2.52; HGB 15.3 gm/dL (13.0-17.5); Luc % (Auto) 1; Lymphocytes # (A) 0.9 k/uL (1.0-4.8); Lymphocytes % (A) 12 %; MCH 31.5 pg (25.0-35.0); MCHC 33.3 g/dL (31.0-37.0); MCV 94.4 fL (80.0-100.0); Mean Platelet Volume 7.6; Monocytes # (A) 0.5 k/uL (0-1.0); Monocytes % (A) 7 %; Neutrophils # (A) 5.6 k/uL (1.3-7.7); Neutrophils % (A) 77 %; RBC 4.86 m/uL (4.30-5.90); RDW 14.3 % (11.5-15.5); WBC 7.3 k/uL (3.8-10.6); WBC (Perox) 6.86
--- NOTE | 2016-08-31 07:11 | ED ---
Abdominal Pain HPI - General Source: patient Mode of arrival: wheelchair Limitations: no limitations - History of Present Illness MD Complaint: abdominal pain -: hour(s) Location: RUQ Radiation: none Migration to: no migration Severity: mild Quality: sharp Consistency: intermittent Improves With: nothing Worsens With: other (Palpation) Associated Symptoms: denies other symptoms <Gomez Vides - Last Filed: 08/31/16 07:07> <Darell Sheppard - Last Filed: 08/31/16 08:49> - General Chief Complaint: Abdominal Pain Stated Complaint: ABD PAIN - History of Present Illness Initial Comments: This patient is an 81-year-old man who presents to be evaluated for right upper quadrant tenderness. The patient's states that if he is not touched the area there is no pain. Describes it as sharp and intermittent. Again the pain is present only when he presses on the area. (Gomez Vides) - Related Data Home Medications Medication Instructions Recorded Confirmed Doxazosin [Cardura] 4 mg PO HS 11/29/14 08/31/16 Finasteride [Proscar] 5 mg PO DAILY 11/29/14 08/31/16 Multivit-Min/FA/Lycopene/Lut 1 tab PO DAILY 11/29/14 08/31/16 [Centrum Silver Tablet] [place]-3 Fatty Acids/Fish Oil [Fish 1,000 mg PO BID 11/29/14 08/31/16 Oil 1,000 mg Softgel] Atorvastatin Calcium [Lipitor] 40 mg PO HS 07/07/15 08/31/16 Metoprolol Succinate (ER) [Toprol 25 mg PO HS 07/07/15 08/31/16 XL] Metoprolol Succinate (ER) [Toprol 50 mg PO DAILY 07/07/15 08/31/16 XL] Warfarin Sodium [Coumadin] 3 mg PO SUMOWEFR 08/08/16 08/31/16 Warfarin Sodium [Coumadin] 6 mg PO TUTHSA 08/08/16 08/31/16 Tamsulosin HCl [Flomax] 0.4 mg PO DAILY 08/31/16 08/31/16 Previous Rx's Medication Instructions Recorded Clopidogrel [Plavix] 75 mg PO DAILY tab 08/10/16 Furosemide [Lasix] 20 mg PO DAILY tab 08/10/16 Lisinopril [Zestril] 5 mg PO DAILY tab 08/10/16 Allergies Allergy/AdvReac Type Severity Reaction Status Date / Time venom-honey bee Allergy Swelling Verified 08/31/16 07:10 [bee venom (honey bee)] Review of Systems ROS Other: All systems not noted in ROS Statement are negative. Constitutional: Denies: fever, chills Respiratory: Denies: cough, dyspnea Cardiovascular: Denies: chest pain, palpitations, syncope Gastrointestinal: Reports: as per HPI, abdominal pain. Denies: nausea, vomiting , diarrhea, constipation Genitourinary: Denies: dysuria, hematuria Musculoskeletal: Denies: back pain Skin: Denies: rash Neurological: Denies: headache, weakness, numbness <Gomez Vides - Last Filed: 08/31/16 07:07> ROS Other: All systems not noted in ROS Statement are negative. <Darell Sheppard - Last Filed: 08/31/16 08:49> ROS Statement: Those systems with pertinent positive or pertinent negative responses have been documented in the HPI. Past Medical History Past Medical History: Atrial Fibrillation, Cancer, Hyperlipidemia, Hypertension , Prostate Disorder Additional Past Medical History / Comment(s): HX SKIN CA, SVT status post ablation. FAILED STRESS TEST IN [place] AND GOT 3 STENTS 04/2016, melanoma History of Any Multi-Drug Resistant Organisms: None Reported Past Surgical History: Appendectomy, Heart Catheterization, Heart Catheterization With Stent, Tonsillectomy Additional Past Surgical History / Comment(s): SKIN GRAFT TO FOREHEAD R/T SKIN CA Past Anesthesia/Blood Transfusion Reactions: No Reported Reaction Date of Last Stent Placement:: 04/2016 Past Psychological History: No Psychological Hx Reported Smoking Status: Former smoker - Past Family History Mother Family Medical History: Cancer Father Family Medical History: Cancer Additional Family Medical History / Comment(s): LEUKEMIA <Gomez Vides - Last Filed: 08/31/16 07:07> General Exam Limitations: no limitations General appearance: alert, in no apparent distress Head exam: Present: atraumatic, normocephalic Eye exam: Present: normal appearance. Absent: scleral icterus, conjunctival injection ENT exam: Present: normal oropharynx Respiratory exam: Present: normal lung sounds bilaterally. Absent: respiratory distress, wheezes, rales, rhonchi, stridor, chest wall tenderness Cardiovascular Exam: Present: regular rate, normal rhythm, normal heart sounds. Absent: systolic murmur, diastolic murmur, rubs, gallop GI/Abdominal exam: Present: soft, tenderness (Patient has an area of tenderness in the right upper abdomen, along the anterior axillary line, approximately 6- 8cm below the costal margin. There is no rebound or guarding. The patient does have a lipoma palpable in the anterior abdominal wall but it is more towards the midline and the pain). Absent: distended, guarding, rebound, rigid , mass Extremities exam: Present: normal inspection, normal capillary refill. Absent: pedal edema, calf tenderness Back exam: Absent: CVA tenderness (R), CVA tenderness (L) Neurological exam: Present: alert Skin exam: Present: warm, dry, intact, normal color. Absent: rash <Gomez Vides - Last Filed: 08/31/16 07:07> Medical Decision Making <Gomez Vides - Last Filed: 08/31/16 07:07> - Lab Data Result diagrams: 08/31/16 06:48 08/31/16 06:48 - Radiology Data Radiology results: report reviewed (Computed tomography scan of the abdomen and pelvis shows no acute intra-abdominal process. Moderate fecal stasis.) <Darell Sheppard - Last Filed: 08/31/16 08:49> - Medical Decision Making Patient reevaluated and resting comfortably in bed. Abdomen soft with mild tenderness to deep palpation right upper abdomen. Patient states symptoms started with movement and believes he may have pulled a muscle. Patient states symptoms do not bother him when lying there only with movement. Patient and family updated on results and need for follow-up. (Darell Sheppard) - Lab Data Lab Results 08/31/16 08/31/16 08/31/16 Range/Units 06:48 06:48 06:48 WBC 7.3 (3.8-10.6) k/uL RBC 4.86 (4.30-5.90) m/uL Hgb 15.3 (13.0-17.5) gm/dL Hct 45.9 (39.0-53.0) % MCV 94.4 (80.0-100.0) fL MCH 31.5 (25.0-35.0) pg MCHC 33.3 (31.0-37.0) g/dL RDW 14.3 (11.5-15.5) % Plt Count 136 L (150-450) k/uL Neutrophils % 77 % Lymphocytes % 12 % Monocytes % 7 % Eosinophils % 2 % Basophils % 1 % Neutrophils # 5.6 (1.3-7.7) k/uL Lymphocytes # 0.9 L (1.0-4.8) k/uL Monocytes # 0.5 (0-1.0) k/uL Eosinophils # 0.2 (0-0.7) k/uL Basophils # 0.1 (0-0.2) k/uL Sodium 142 (137-145) mmol/L Potassium 3.9 (3.5-5.1) mmol/L Chloride 103 (98-107) mmol/L Carbon Dioxide 29 (22-30) mmol/L Anion Gap 10 mmol/L BUN 19 (9-20) mg/dL Creatinine 1.02 (0.66-1.25) mg/dL Est GFR (MDRD) Af Amer >60 (>60 ml/min/1.73 sqM) Est GFR (MDRD) Non-Af >60 (>60 ml/min/1.73 sqM) Glucose 102 H (74-99) mg/dL Calcium 9.1 (8.4-10.2) mg/dL Total Bilirubin 1.0 (0.2-1.3) mg/dL AST 26 (17-59) U/L ALT 51 (21-72) U/L Alkaline Phosphatase 85 (38-126) U/L Total Protein 6.5 (6.3-8.2) g/dL Albumin 4.0 (3.5-5.0) g/dL Amylase 31 (30-110) U/L Lipase 51 (23-300) U/L Urine Color Yellow Urine Appearance Cloudy (Clear) Urine pH 7.5 (5.0-8.0) Ur Specific [place] 1.012 (1.001-1.035) Urine Protein Trace H (Negative) Urine Glucose (UA) Negative (Negative) Urine Ketones Negative (Negative) Urine Blood Negative (Negative) Urine Nitrite Negative (Negative) Urine Bilirubin Negative (Negative) Urine Urobilinogen <2.0 (<2.0) mg/dL Ur Leukocyte Esterase Negative (Negative) Urine WBC 5 (0-5) /hpf Amorphous Sediment Few H (None) /hpf Disposition <Gomez Vides - Last Filed: 08/31/16 07:07> Time of Disposition: 08:49 <Darell Sheppard - Last Filed: 08/31/16 08:49> Clinical Impression: Abdominal pain Disposition: HOME SELF-CARE Condition: Stable Instructions: Abdominal Pain (ED), Constipation (ED), High Fiber Diet (ED) Additional Instructions: Please follow-up with your doctor this week. Return for fever, increased pain, worsening or changing symptoms or other concerns. [id number] prune juice , Colace(stool softener), Metamucil. Referrals: Piyush Vyas MD [Primary Care Provider] - 1-2 days
[2016-08-31 07:20] LABS: Amorphous Sediment,Urine Few /hpf; Appearance,Urine Cloudy (Clear); Bilirubin,Urine Negative (Negative); Glucose,Urine (UA) Negative (Negative); Ketones,Urine Negative (Negative); Leukocyte Esterase,Urine Negative (Negative); Nitrite,Urine Negative (Negative); PH, Urine 7.5 (5.0-8.0); Particle Count 7355; Protein,Urine Trace (Negative); Specific Gravity,Urine 1.012 (1.001-1.035); UA Billing (MACRO vs. MICRO) MICRO; Urobilinogen,Urine <2.0 mg/dL (<2.0); WBC,Urine 5 /hpf (0-5)
[2016-08-31 07:24] LABS: ALT 51 U/L (21-72); AST 26 U/L (17-59); Alkaline Phosphatase 85 U/L (38-126); Amylase 31 U/L (30-110); Anion Gap 10 mmol/L; Blood Urea Nitrogen 19 mg/dL (9-20); Calcium 9.1 mg/dL (8.4-10.2); Carbon Dioxide 29 mmol/L (22-30); Chloride 103 mmol/L (98-107); Glucose 102 mg/dL (74-99); Non-African American GFR(MDRD) >60 (>60 ml/min/1.73 sqM); Potassium 3.9 mmol/L (3.5-5.1); Sodium 142 mmol/L (137-145); Total Protein 6.5 g/dL (6.3-8.2)
[2016-08-31] MEDS ORDERED: ENALAPRILAT 1.25 MG/ML 1 ML VIAL IVP STA (07:32)
[2016-08-31] MEDS ORDERED: RX INFO: IV CONTRAST WAS GIVEN 1 EACH MISC MISCELLANE PRN (07:32)
--- NOTE | 2016-08-31 08:21 | CT ---
EXAMINATION TYPE: CT abdomen pelvis w con DATE OF EXAM: 08/31/2016 COMPARISON: 07/08/2015 HISTORY: Rt lateral abdomen pain CT DLP: 1429.2 mGycm CONTRAST: CT scan of the abdomen and pelvis is performed without Oral Contrast and with IV Contrast, patient in jected with 100 mL of Omnipaque 300. FINDINGS: LUNG BASES-: No visible nodule. There is cardiomegaly with pericardial effusion as noted previously . Small right-sided pleural effusion with mild basilar patchy density may reflect atelectasis or deve loping infiltrate. LIVER/GB: No evidence of cholelithiasis or gallbladder wall thickening. Multiple hepatic cysts are ag ain noted. There is a large peripherally enhancing mass within the knee right hepatic lobe with near complete filling in on delayed images likely reflecting a giant hepatic hemangioma measuring 10 x 6 c m. No evidence for hemorrhage at this time. PANCREAS: No inflammation. No distinct mass. SPLEEN: No splenic enlargement. No lesion seen. ADRENALS: No nodule. No thickening. KIDNEYS/BLADDER: No hydronephrosis. No nephrolithiasis. Multiple stable simple cysts of the right kidney. Urinary bladder grossly unremarkable. BOWEL: There is nonvisualization of the appendix. No inflammatory process is identified within the ri ght lower quadrant. Moderate fecal stasis. Normal bowel caliber. No inflammation. Small sliding-typ e hiatal hernia. GENITAL ORGANS: Enlarged prostate gland. LYMPH NODES: No greater than 1cm abdominal or pelvic lymph nodes are appreciated. AORTA: No significant abnormality. OSSEOUS STRUCTURES: Multilevel degenerative disc disease. Chronic loss of height of L1. OTHER: Fat-containing inguinal hernias. IMPRESSION: 1. No acute intra-abdominal process is appreciated at this time. 2. Cardiomegaly with pericardial effusion. Small right basilar pleural effusion with mild patchy dens ity. 3. Moderate fecal stasis. 4. Giant hepatic hemangioma. 5. Hepatic and right renal cysts.
[2016-08-31 08:43] VITALS: RESP 16
[2016-08-31 09:06] VITALS: BP 189/98; PULSE 71; TEMP 97.6
== END 2016-08-31 09:05 | disposition home or self-care (01) ==
LOC: EC 06:03
DX: R10.11 Right upper quadrant pain (principal); D17.39 Benign lipomatous neoplasm of skin and subcutaneous tissue of other sites; E78.5 Hyperlipidemia, unspecified; I10 Essential (primary) hypertension; I48.91 Unspecified atrial fibrillation; N42.9 Disorder of prostate, unspecified; Z87.891 Personal history of nicotine dependence; Z79.01 Long term (current) use of anticoagulants; Z79.899 Other long term (current) drug therapy; Z91.030 Bee allergy status; Z90.49 Acquired absence of other specified parts of digestive tract
CPT/HCPCS: 36415; 80053; 82150; 83690; 85025; 81001; 74177; 99284; 96374; Q9967

== ENCOUNTER 2016-10-02 19:33 | Inpatient (IN) | payer MEDICARE ==
[2016-10-02 20:03] LABS: Basophils % (A) 0 %; CH 32.5; CHCM 33.7; Eosinophils # (A) 0.1 k/uL (0-0.7); Eosinophils % (A) 2 %; HCT 46.6 % (39.0-53.0); HDW 2.51; HGB 15.2 gm/dL (13.0-17.5); Luc # (Auto) 0.08; Luc % (Auto) 1; Lymphocytes # (A) 0.8 k/uL (1.0-4.8); Lymphocytes % (A) 12 %; MCH 31.5 pg (25.0-35.0); MCHC 32.6 g/dL (31.0-37.0); MCV 96.8 fL (80.0-100.0); Mean Platelet Volume 8.7; Monocytes # (A) 0.4 k/uL (0-1.0); Monocytes % (A) 5 %; Neutrophils # (A) 5.3 k/uL (1.3-7.7); Neutrophils % (A) 79 %; RBC 4.82 m/uL (4.30-5.90); RDW 15.4 % (11.5-15.5); WBC 6.7 k/uL (3.8-10.6)
[2016-10-02 20:07] LABS: INR 1.4 (<1.2); Prothrombin Time 14.1 sec (9.0-12.0)
--- NOTE | 2016-10-02 20:08 | ED ---
Dizziness HPI - General Source: patient, family, RN notes reviewed Mode of arrival: wheelchair Limitations: no limitations - History of Present Illness MD Complaint: dizziness <Gorge Acuña - Last Filed: 10/02/16 20:57> <Gorge Downey - Last Filed: 10/02/16 22:27> - General Chief Complaint: Dizziness Stated Complaint: fall; facial injury Time Seen by Provider: 10/02/16 19:41 - History of Present Illness Initial Comments: This 81-year-old male who states he was applying fertilizer home when he developed dizziness loss his balance and fell onto his face. No loss of consciousness he complains of facial pain and left hand pain. He denies any neck or back pain a loss of function is upper or lower extremities. He is on Coumadin. He sustained multiple abrasions to his face and complains of some left hand second third knuckle tenderness. No other injuries reported. No headache no blurry vision. (Gorge Acuña) - Related Data Home Medications Medication Instructions Recorded Confirmed Doxazosin [Cardura] 4 mg PO HS 11/29/14 10/02/16 Finasteride [Proscar] 5 mg PO DAILY 11/29/14 10/02/16 Multivit-Min/FA/Lycopene/Lut 1 tab PO DAILY 11/29/14 10/02/16 [Centrum Silver Tablet] Atorvastatin Calcium [Lipitor] 40 mg PO HS 07/07/15 10/02/16 Metoprolol Succinate (ER) [Toprol 25 mg PO HS 07/07/15 10/02/16 XL] Fish Oil/Dha/Epa [Fish Oil 1,200 1 cap PO DAILY 10/02/16 10/02/16 mg Fish Oil] Furosemide [Lasix] 20 mg PO DAILY 10/02/16 10/02/16 Warfarin [Coumadin] 2.5 mg PO MOWEFR 10/02/16 10/02/16 Warfarin [Coumadin] 5 mg PO SUTUTHSA 10/02/16 10/02/16 Previous Rx's Medication Instructions Recorded Clopidogrel [Plavix] 75 mg PO DAILY tab 08/10/16 Lisinopril [Zestril] 5 mg PO DAILY tab 08/10/16 Allergies Allergy/AdvReac Type Severity Reaction Status Date / Time venom-honey bee Allergy Swelling Verified 10/02/16 20:18 [bee venom (honey bee)] Review of Systems ROS Other: All systems not noted in ROS Statement are negative. <Gorge Acuña - Last Filed: 10/02/16 20:57> ROS Other: All systems not noted in ROS Statement are negative. <Gorge Downey - Last Filed: 10/02/16 22:27> ROS Statement: Those systems with pertinent positive or pertinent negative responses have been documented in the HPI. Past Medical History Past Medical History: Atrial Fibrillation, Cancer, Hyperlipidemia, Hypertension , Prostate Disorder Additional Past Medical History / Comment(s): HX SKIN CA, SVT status post ablation. FAILED STRESS TEST IN [place] AND GOT 3 STENTS 04/2016, melanoma History of Any Multi-Drug Resistant Organisms: None Reported Past Surgical History: Appendectomy, Heart Catheterization, Heart Catheterization With Stent, Tonsillectomy Additional Past Surgical History / Comment(s): SKIN GRAFT TO FOREHEAD R/T SKIN CA Past Anesthesia/Blood Transfusion Reactions: No Reported Reaction Date of Last Stent Placement:: 04/2016 Past Psychological History: No Psychological Hx Reported Smoking Status: Former smoker Past Alcohol Use History: None Reported Past Drug Use History: None Reported - Past Family History Mother Family Medical History: Cancer Father Family Medical History: Cancer Additional Family Medical History / Comment(s): LEUKEMIA <Gorge Acuña - Last Filed: 10/02/16 20:57> General Exam Limitations: no limitations General appearance: alert, in no apparent distress Head exam: Present: normocephalic, other (Multiple abrasions over the forehead the right inferior lateral orbit and nasal below the right naris. There right lower lip is edematous with a superficial abrasion the dentition appears to be intact. There is some dry blood in the left naris. Auditory canals are clear) Eye exam: Present: normal appearance, PERRL, EOMI. Absent: scleral icterus, conjunctival injection, periorbital swelling ENT exam: Present: mucous membranes moist, TM's normal bilaterally, other (As above) Neck exam: Present: normal inspection. Absent: tenderness, meningismus, lymphadenopathy Respiratory exam: Present: normal lung sounds bilaterally. Absent: respiratory distress, wheezes, rales, rhonchi, stridor Cardiovascular Exam: Present: normal rhythm, irregular rhythm. Absent: systolic murmur, diastolic murmur, rubs, gallop, clicks Rectal exam: Present: deferred Extremities exam: Present: full ROM, tenderness, normal capillary refill, other (Ecchymosis and edema seen over the second and especially of her dorsal neck carpal phalangeal joint. Tenderness palpation there is however 4H Fadi no definite step-off or crepitation.) Back exam: Present: normal inspection Neurological exam: Present: alert, oriented X3, CN II-XII intact Psychiatric exam: Present: normal affect, normal mood Skin exam: Present: warm, dry, normal color, other (Otherwise as described above ). Absent: intact <Gorge Acuña - Last Filed: 10/02/16 20:57> Head exam: Present: other <Gorge Downey - Last Filed: 10/02/16 22:27> - General Exam Comments Initial Comments: This is a well up well-nourished awake alert oriented 3 male his [place] Coma Scale of 15 (Gorge Acuña) Course <Gorge Acuña - Last Filed: 10/02/16 20:57> <Gorge Downey - Last Filed: 10/02/16 22:27> Vital Signs 10/02/16 10/02/16 10/02/16 19:37 20:30 22:00 Temperature 98.2 F 97.7 F Pulse Rate 86 85 89 Respiratory 20 22 18 Rate Blood Pressure 212/117 203/119 195/110 O2 Sat by Pulse 97 97 97 Oximetry 10/02/16 22:15 Temperature Pulse Rate 88 Respiratory 18 Rate Blood Pressure 207/105 O2 Sat by Pulse 97 Oximetry - Reevaluation(s) Reevaluation #1: 10/02/16 20:57 The patient will be endorsed to Dr. Downey who will make the final disposition (Gorge Acuña) 10/02/16 22:22 I did reevaluate this patient after sign out. (Gorge Downey) EKG Findings - EKG Results: EKG: interpreted by ERMD (Atrial fibrillation rate of 82 QRS of 92 QT since QTC of 370/[address]-T wave changes.) <Gorge Acuña - Last Filed: 10/02/16 20:57> - EKG Comments: EKG Findings:: EKG shows a 2 fibrillation with a ventricular rate 82, QRS duration 92, QTC 432, there is no signs of ischemia. There does appear to be organized atrial activity which may be a flutter. <Gorge Downey - Last Filed: 10/02/16 22:27> Medical Decision Making - Lab Data Result diagrams: 10/02/16 19:55 10/02/16 19:55 <Gorge Acuña - Last Filed: 10/02/16 20:57> - Lab Data Result diagrams: 10/02/16 19:55 10/02/16 19:55 <Gorge Downey - Last Filed: 10/02/16 22:27> - Medical Decision Making Patient was signed out from Dr. Acuña at shift change. Patient had a near syncopal episode with fall. He is on Coumadin for atrial fibrillation. INR 1.4 Patient denied any chest pain shortness of breath or palpitations prior to fall. No abdominal pain. Denied dysuria. Denies fever or chills. Head CT shows no intracranial hemorrhage or acute process. There was trauma to the left hand, x-ray revealed no acute bony abilities, there is large dorsal hematoma. Laboratory studies including CBC and CMP are unremarkable. Urinalysis is positive for UTI. This may be related to the patient's dizziness and lightheadedness. He is treated with ceftriaxone in the emergency department. Urine culture is pending. He does have a history of BPH. Given subtherapeutic INR patient will not be transferred for closed head injury on Coumadin. He will be evaluated at this hospital for near-syncope, hypotension, and UTI. Diagnosis: Near syncope, closed head injury, UTI, hypertension. (Gorge Downey) - Lab Data Lab Results 10/02/16 10/02/16 10/02/16 Range/Units 19:55 19:55 19:55 WBC 6.7 (3.8-10.6) k/uL RBC 4.82 (4.30-5.90) m/uL Hgb 15.2 (13.0-17.5) gm/dL Hct 46.6 (39.0-53.0) % MCV 96.8 (80.0-100.0) fL MCH 31.5 (25.0-35.0) pg MCHC 32.6 (31.0-37.0) g/dL RDW 15.4 (11.5-15.5) % Plt Count 133 L (150-450) k/uL Neutrophils % 79 % Lymphocytes % 12 % Monocytes % 5 % Eosinophils % 2 % Basophils % 0 % Neutrophils # 5.3 (1.3-7.7) k/uL Lymphocytes # 0.8 L (1.0-4.8) k/uL Monocytes # 0.4 (0-1.0) k/uL Eosinophils # 0.1 (0-0.7) k/uL Basophils # 0.0 (0-0.2) k/uL PT 14.1 H (9.0-12.0) sec INR 1.4 H (<1.2) Sodium 143 (137-145) mmol/L Potassium 4.2 (3.5-5.1) mmol/L Chloride 104 (98-107) mmol/L Carbon Dioxide 29 (22-30) mmol/L Anion Gap 10 mmol/L BUN 24 H (9-20) mg/dL Creatinine 1.20 (0.66-1.25) mg/dL Est GFR (MDRD) Af Amer >60 (>60 ml/min/1.73 sqM) Est GFR (MDRD) Non-Af 58 (>60 ml/min/1.73 sqM) Glucose 102 H (74-99) mg/dL Calcium 9.4 (8.4-10.2) mg/dL Magnesium 2.2 (1.6-2.3) mg/dL Total Bilirubin 0.6 (0.2-1.3) mg/dL AST 27 (17-59) U/L ALT 43 (21-72) U/L Alkaline Phosphatase 86 (38-126) U/L Total Creatine Kinase (55-170) U/L CK-MB (CK-2) (0.0-2.4) ng/mL CK-MB (CK-2) Rel Index Troponin I (0.000-0.034) ng/mL Total Protein 6.4 (6.3-8.2) g/dL Albumin 4.0 (3.5-5.0) g/dL Urine Color Urine Appearance (Clear) Urine pH (5.0-8.0) Ur Specific [place] (1.001-1.035) Urine Protein (Negative) Urine Glucose (UA) (Negative) Urine Ketones (Negative) Urine Blood (Negative) Urine Nitrite (Negative) Urine Bilirubin (Negative) Urine Urobilinogen (<2.0) mg/dL Ur Leukocyte Esterase (Negative) Urine RBC (0-5) /hpf Urine WBC (0-5) /hpf Urine WBC Clumps (None) /hpf Urine Bacteria (None) /hpf Urine Mucus (None) /hpf Urine Yeast (Budding) (None) /hpf 10/02/16 10/02/16 Range/Units 19:55 20:25 WBC (3.8-10.6) k/uL RBC (4.30-5.90) m/uL Hgb (13.0-17.5) gm/dL Hct (39.0-53.0) % MCV (80.0-100.0) fL MCH (25.0-35.0) pg MCHC (31.0-37.0) g/dL RDW (11.5-15.5) % Plt Count (150-450) k/uL Neutrophils % % Lymphocytes % % Monocytes % % Eosinophils % % Basophils % % Neutrophils # (1.3-7.7) k/uL Lymphocytes # (1.0-4.8) k/uL Monocytes # (0-1.0) k/uL Eosinophils # (0-0.7) k/uL Basophils # (0-0.2) k/uL PT (9.0-12.0) sec INR (<1.2) Sodium (137-145) mmol/L Potassium (3.5-5.1) mmol/L Chloride (98-107) mmol/L Carbon Dioxide (22-30) mmol/L Anion Gap mmol/L BUN (9-20) mg/dL Creatinine (0.66-1.25) mg/dL Est GFR (MDRD) Af Amer (>60 ml/min/1.73 sqM) Est GFR (MDRD) Non-Af (>60 ml/min/1.73 sqM) Glucose (74-99) mg/dL Calcium (8.4-10.2) mg/dL Magnesium (1.6-2.3) mg/dL Total Bilirubin (0.2-1.3) mg/dL AST (17-59) U/L ALT (21-72) U/L Alkaline Phosphatase (38-126) U/L Total Creatine Kinase 106 (55-170) U/L CK-MB (CK-2) 2.6 H* (0.0-2.4) ng/mL CK-MB (CK-2) Rel Index 2.5 Troponin I 0.016 (0.000-0.034) ng/mL Total Protein (6.3-8.2) g/dL Albumin (3.5-5.0) g/dL Urine Color Yellow Urine Appearance Cloudy (Clear) Urine pH 5.5 (5.0-8.0) Ur Specific [place] 1.018 (1.001-1.035) Urine Protein 1+ H (Negative) Urine Glucose (UA) Negative (Negative) Urine Ketones Negative (Negative) Urine Blood Small H (Negative) Urine Nitrite Negative (Negative) Urine Bilirubin Negative (Negative) Urine Urobilinogen <2.0 (<2.0) mg/dL Ur Leukocyte Esterase Large H (Negative) Urine RBC 8 H (0-5) /hpf Urine WBC >182 H (0-5) /hpf Urine WBC Clumps Moderate H (None) /hpf Urine Bacteria Few H (None) /hpf Urine Mucus Occasional H (None) /hpf Urine Yeast (Budding) Few H (None) /hpf Critical Care Time Critical Care Time: Yes Total Critical Care Time: 35 <Gorge Downey N - Last Filed: 10/02/16 22:27> Disposition <Gorge Acuña - Last Filed: 10/02/16 20:57> Decision to Admit Reason: Admit from EC Decision Date: 10/02/16 Decision Time: 22:05 <Gorge Downey - Last Filed: 10/02/16 22:27> Clinical Impression: Near syncope, UTI (urinary tract infection), Hypertension Disposition: ADMITTED IP TO THIS [facility] Condition: Stable Referrals: Piyush Vyas MD [Primary Care Provider] - 1-2 days
--- NOTE | 2016-10-02 20:16 | XR ---
EXAMINATION TYPE: XR hand complete LT DATE OF EXAM: 10/02/2016 COMPARISON: NONE HISTORY: Pain hematoma TECHNIQUE: 3 view left hand FINDINGS: The ring is on the ring finger at the time of this examination. There is soft tissue swelli ng over the dorsum of the hand. Joint spaces appear preserved. No acute fractures are identified. IMPRESSION: 1. Soft tissue swelling dorsum of hand the metacarpal phalangeal joint space. 2. No acute osseous abnormality identified.
--- NOTE | 2016-10-02 20:39 | CT ---
EXAMINATION TYPE: CT brain eliseo cheek DATE OF EXAM: 10/02/2016 COMPARISON: NONE HISTORY: Patient was dizzy and fell today. Patient has multiple facial lacerations. Patient has no head or neck complaints at time of study. CT DLP: 1301 mGycm, Automated exposure control for dose reduction was used. CONTRAST: Patient injected with 0 mL of Omnipaque 300. CT of the brain is performed utilizing 3 mm thick sections through the posterior fossa and 3 mm thick sections through the remaining calvarium. Study is performed within 24 hours of arrival to the hospital. No abnormal hyperdensity is present to suggest an acute intracranial hemorrhage. No mass lesion is evident. No acute infarcts are evident. Chronic appearing white matter periventricular ischemic type changes. 0 Ventricles and sulci are appropriate for the patient age. Paranasal sinuses and mastoid air cells within the [id number] are clear. Nasal bone fracture of indeterminate age is present. Paranasal sinuses and mastoid air cells are rebecca r. Superficial soft tissue swelling is over the right frontal region. IMPRESSIONS: 1. Periventricular white matter ischemic type changes, likely chronic. 2. Clinical correlation recommended for nasal bone fracture. This is of indeterminate age. 3. Soft tissue swelling right frontal region CT cervical spine. COMPARISON: None CT of the cervical spine is performed in the axial plane at 2 mm thick sections. Reconstructed image s in the coronal, and sagittal plane are reviewed on the computer. No acute cervical spine fractures are evident. Vertebral body alignment is normal. Disc space narrowing is present throughout the cervical spine greatest at C5-6 C6-7. Vertebral body heights are preserved. There may be a hemangioma at T2. No spinal canal stenosis is evident. There is some right foraminal narrowing C5-6 to mild degree C3-4. Some left foraminal narrowing C6-7 is present. IMPRESSIONS: 1. No acute abnormality cervical spine. 2. Degenerative type changes.
[2016-10-02 20:44] LABS: Appearance,Urine Cloudy (Clear); Bacteria,Urine Few /hpf; Bilirubin,Urine Negative (Negative); Glucose,Urine (UA) Negative (Negative); Ketones,Urine Negative (Negative); Leukocyte Esterase,Urine Large (Negative); Mucus,Urine Occasional /hpf; Nitrite,Urine Negative (Negative); PH, Urine 5.5 (5.0-8.0); Particle Count 6463; Protein,Urine 1+ (Negative); RBC,Urine 8 /hpf (0-5); Specific Gravity,Urine 1.018 (1.001-1.035); UA Billing (MACRO vs. MICRO) MICRO; Urobilinogen,Urine <2.0 mg/dL (<2.0); WBC,Urine >182 /hpf (0-5)
[2016-10-02 20:49] LABS: ALT 43 U/L (21-72); AST 27 U/L (17-59); Alkaline Phosphatase 86 U/L (38-126); Anion Gap 10 mmol/L; Blood Urea Nitrogen 24 mg/dL (9-20); Calcium 9.4 mg/dL (8.4-10.2); Carbon Dioxide 29 mmol/L (22-30); Chloride 104 mmol/L (98-107); Glucose 102 mg/dL (74-99); Magnesium 2.2 mg/dL (1.6-2.3); Non-African American GFR(MDRD) 58 (>60 ml/min/1.73 sqM); Potassium 4.2 mmol/L (3.5-5.1); Sodium 143 mmol/L (137-145); Total Bilirubin 0.6 mg/dL (0.2-1.3); Total Protein 6.4 g/dL (6.3-8.2)
[2016-10-02 21:05] LABS: Troponin I 0.016 ng/mL (0.000-0.034)
[2016-10-02 21:16] LABS: Creatine Kinase MB 2.6 ng/mL (0.0-2.4)
[2016-10-02] MEDS ORDERED: LISINOPRIL 5 MG TAB PO STA (21:41)
[2016-10-02] MEDS ORDERED: hydrALAZINE HCL 20 MG/ML 1 ML VIAL IVP STA (21:42)
[2016-10-02] MEDS ORDERED: ONDANSETRON 4 MG/2 ML VIAL IVP PRN (22:17)
[2016-10-02] MEDS ORDERED: NALOXONE 0.4 MG/ML 1 ML VIAL IV PRN (22:17)
[2016-10-02] MEDS: ACETAMINOPHEN TAB 325 MG TAB PO PRN (23:33)
[2016-10-02 23:48] VITALS: BMI 27.2
[2016-10-02] MEDS: SODIUM CHLORIDE 0.9% 1,000 ML IV SCH (23:56)
[2016-10-03] MEDS: ATORVASTATIN 40 MG TAB PO SCH ×2 (00:21→19:58)
[2016-10-03] MEDS: DOXAZOSIN 4 MG TAB PO SCH ×3 (00:21→21:01)
[2016-10-03] MEDS: METOPROLOL SUCCINATE (ER) 25 MG TAB.ER.24H PO SCH ×2 (00:21→19:58)
[2016-10-03 06:31] LABS: Basophils % (A) 0 %; CH 32.4; CHCM 33.5; Eosinophils # (A) 0.1 k/uL (0-0.7); Eosinophils % (A) 2 %; HCT 42.8 % (39.0-53.0); HDW 2.51; HGB 13.7 gm/dL (13.0-17.5); Luc # (Auto) 0.13; Luc % (Auto) 2; Lymphocytes # (A) 1.1 k/uL (1.0-4.8); Lymphocytes % (A) 16 %; Mean Platelet Volume 8.5; Monocytes # (A) 0.5 k/uL (0-1.0); Monocytes % (A) 7 %; Neutrophils # (A) 4.9 k/uL (1.3-7.7); Neutrophils % (A) 73 %; RBC 4.42 m/uL (4.30-5.90); RDW 15.2 % (11.5-15.5); WBC 6.7 k/uL (3.8-10.6)
[2016-10-03 06:35] LABS: INR 1.5 (<1.2); Prothrombin Time 14.2 sec (9.0-12.0)
[2016-10-03 06:44] LABS: ALT 41 U/L (21-72); AST 23 U/L (17-59); Alkaline Phosphatase 70 U/L (38-126); Anion Gap 7 mmol/L; Blood Urea Nitrogen 22 mg/dL (9-20); Calcium 8.8 mg/dL (8.4-10.2); Carbon Dioxide 26 mmol/L (22-30); Chloride 107 mmol/L (98-107); Glucose 93 mg/dL (74-99); Non-African American GFR(MDRD) >60 (>60 ml/min/1.73 sqM); Potassium 3.6 mmol/L (3.5-5.1); Sodium 140 mmol/L (137-145); Total Bilirubin 0.8 mg/dL (0.2-1.3); Total Protein 5.4 g/dL (6.3-8.2)
[2016-10-03] MEDS: hydrALAZINE HCL 20 MG/ML 1 ML VIAL IVP PRN ×2 (08:51→16:10)
[2016-10-03] MEDS ORDERED: Potassium Replacement Protocol 1 EACH MISC MISCELLANE PRN (14:10)
[2016-10-03] MEDS ORDERED: Magnesium Replacement Protocol 1 EACH MISC MISCELLANE PRN (14:10)
[2016-10-03] MEDS ORDERED: ONDANSETRON 4 MG/2 ML VIAL IVP PRN (14:10)
--- NOTE | 2016-10-03 15:53 | P.HPIM ---
History of Present Illness H&P Date: 10/03/16 Chief Complaint: Dizziness and fall This is a 81-year-old gentleman with very complex past medical history noted below who presented to the emergency room with an episode this dizziness and a fall. Patient said that he was working on his lawn outside and on his way back he started feeling dizzy and eventually lost his balance and had a fall forward and landed on his face on the concrete driveway. Patient did not loose consciousness. He said that he noticed bleeding from his nose but he was able to get up and go inside the house where his tried to help him clean of the blood. He was eventually transferred to the emergency room for further evaluation. Patient said that he is not sure what happened. Denies any chest pain or shortness of breath. He had a fall couple of month ago requiring hospitalization. Patient is on Coumadin but his INR on presentation was subtherapeutic. Computed tomography scan of the head showed no acute intracranial findings. Patient was noted to have significantly elevated blood pressure on presentation that was treated with IV hydralazine. Review of Systems Review of system: 14 points review of systems were obtained and were negative except to what were mentioned in the HPI. Past Medical History Past Medical History: Atrial Fibrillation, Cancer, Hyperlipidemia, Hypertension , Prostate Disorder Additional Past Medical History / Comment(s): HX SKIN CA, SVT status post ablation. FAILED STRESS TEST IN [place] AND GOT 3 STENTS 04/2016, melanoma History of Any Multi-Drug Resistant Organisms: None Reported Past Surgical History: Appendectomy, Heart Catheterization, Heart Catheterization With Stent, Tonsillectomy Additional Past Surgical History / Comment(s): SKIN GRAFT TO FOREHEAD R/T SKIN CA Past Anesthesia/Blood Transfusion Reactions: No Reported Reaction Date of Last Stent Placement:: 04/2016 Past Psychological History: No Psychological Hx Reported Smoking Status: Former smoker Past Alcohol Use History: Rare Past Drug Use History: None Reported - Past Family History Mother Family Medical History: Cancer Father Family Medical History: Cancer Additional Family Medical History / Comment(s): LEUKEMIA Medications and Allergies Home Medications Medication Instructions Recorded Confirmed Type Doxazosin [Cardura] 4 mg PO HS 11/29/14 10/02/16 History Finasteride [Proscar] 5 mg PO DAILY 11/29/14 10/02/16 History Multivit-Min/FA/Lycopene/Lut 1 tab PO DAILY 11/29/14 10/02/16 History [Centrum Silver Tablet] Atorvastatin Calcium [Lipitor] 40 mg PO HS 07/07/15 10/02/16 History Metoprolol Succinate (ER) [Toprol 25 mg PO HS 07/07/15 10/02/16 History XL] Fish Oil/Dha/Epa [Fish Oil 1,200 1 cap PO DAILY 10/02/16 10/02/16 History mg Fish Oil] Furosemide [Lasix] 20 mg PO DAILY 10/02/16 10/02/16 History Warfarin [Coumadin] 2.5 mg PO MOWEFR 10/02/16 10/02/16 History Warfarin [Coumadin] 5 mg PO SUTUTHSA 10/02/16 10/02/16 History Allergies Allergy/AdvReac Type Severity Reaction Status Date / Time venom-honey bee Allergy Swelling Verified 10/02/16 23:25 [bee venom (honey bee)] Physical Exam Vitals: Vital Signs Temp Pulse Pulse Resp BP BP Pulse Ox 10/03/16 12:31 97.8 F 77 16 162/88 95 10/03/16 08:56 97.7 F 87 18 176/104 96 10/03/16 04:00 97.1 F L 84 16 129/82 98 10/03/16 02:20 142/94 10/03/16 00:00 97.1 F L 96 17 214/126 96 10/02/16 22:50 98 F 94 18 190/99 97 10/02/16 22:15 88 18 207/105 97 10/02/16 22:00 97.7 F 89 18 195/110 97 10/02/16 20:30 85 22 203/119 97 10/02/16 19:37 98.2 F 86 20 212/117 97 Intake and Output 10/03/16 10/03/16 10/03/16 06:59 14:59 22:59 Intake Total 236 Output Total 470 400 Balance -470 -164 Intake: Oral 236 Output: Urine 470 400 Other: Voiding Method Urinal Urinal # Voids 1 # Bowel Movements 1 Weight 93.6 kg General: The patient is awake and alert, in no distress Eye: there is normal conjunctiva bilaterally. Neck: The neck is supple, there is no JVD. Cardiovascular: Normal S1-S2, no S3-S4, no murmurs. Respiratory: Lungs clear to auscultation bilaterally Gastrointestinal: Abdomen is soft, nontender Musculoskeletal: There is no pedal edema. Neurological:. Speech is normal. Skin: Skin is warm and dry Results CBC & Chem 7: 10/03/16 05:56 10/03/16 05:56 Labs: Abnormal Lab Results - Last 24 Hours (Table) 10/02/16 10/02/16 10/02/16 Range/Units 19:55 19:55 19:55 Plt Count 133 L (150-450) k/uL Lymphocytes # 0.8 L (1.0-4.8) k/uL PT 14.1 H (9.0-12.0) sec INR 1.4 H (<1.2) BUN 24 H (9-20) mg/dL Glucose 102 H (74-99) mg/dL CK-MB (CK-2) (0.0-2.4) ng/mL Total Protein (6.3-8.2) g/dL Albumin (3.5-5.0) g/dL Urine Protein (Negative) Urine Blood (Negative) Ur Leukocyte Esterase (Negative) Urine RBC (0-5) /hpf Urine WBC (0-5) /hpf Urine WBC Clumps (None) /hpf Urine Bacteria (None) /hpf Urine Mucus (None) /hpf Urine Yeast (Budding) (None) /hpf 10/02/16 10/02/16 10/03/16 Range/Units 19:55 20:25 05:56 Plt Count 137 L (150-450) k/uL Lymphocytes # (1.0-4.8) k/uL PT (9.0-12.0) sec INR (<1.2) BUN (9-20) mg/dL Glucose (74-99) mg/dL CK-MB (CK-2) 2.6 H* (0.0-2.4) ng/mL Total Protein (6.3-8.2) g/dL Albumin (3.5-5.0) g/dL Urine Protein 1+ H (Negative) Urine Blood Small H (Negative) Ur Leukocyte Esterase Large H (Negative) Urine RBC 8 H (0-5) /hpf Urine WBC >182 H (0-5) /hpf Urine WBC Clumps Moderate H (None) /hpf Urine Bacteria Few H (None) /hpf Urine Mucus Occasional H (None) /hpf Urine Yeast (Budding) Few H (None) /hpf 10/03/16 10/03/16 Range/Units 05:56 05:56 Plt Count (150-450) k/uL Lymphocytes # (1.0-4.8) k/uL PT 14.2 H (9.0-12.0) sec INR 1.5 H (<1.2) BUN 22 H (9-20) mg/dL Glucose (74-99) mg/dL CK-MB (CK-2) (0.0-2.4) ng/mL Total Protein 5.4 L (6.3-8.2) g/dL Albumin 3.4 L (3.5-5.0) g/dL Urine Protein (Negative) Urine Blood (Negative) Ur Leukocyte Esterase (Negative) Urine RBC (0-5) /hpf Urine WBC (0-5) /hpf Urine WBC Clumps (None) /hpf Urine Bacteria (None) /hpf Urine Mucus (None) /hpf Urine Yeast (Budding) (None) /hpf Microbiology - Last 24 Hours (Table) 10/02/16 20:25 Urine Culture - Preliminary Urine,Voided Thrombosis Risk Factor Assmnt - Choose All That Apply Any of the Below Risk Factors Present?: Yes Each Factor Represents 1 point: Obesity (BMI >25) Other Risk Factors: Yes Each Risk Factor Represents 3 Points: Age 75 years or older Other congenital or acquired thrombophilia - If yes, enter type in comment: No Thrombosis Risk Factor Assessment Total Risk Factor Score: 4 Thrombosis Risk Factor Assessment Level: Moderate Risk Assessment and Plan Plan: 1. episode of dizziness, loss of balance, and fall: Exact etiology unclear. 12 -lead EKG showed rate controlled atrial fibrillation. Possibly related to dehydration as patient was working out in the yard. I would check orthostatic blood pressure. We'll continue gentle IV fluid hydration. Telemetry monitoring. I would consult cardiology. Echocardiogram couple of month ago showed moderate concentric left ventricular hypertrophy but no significant valvular abnormalities reported. Preserved ejection fraction of 50%. 2. Diastolic heart failure currently compensated with no evidence of exacerbation 3. Chronic atrial fibrillation on anticoagulation with Coumadin. I would hold off Coumadin. I discussed risks and benefits of anticoagulation with the patient given that this is his second fall in 2 months. I don't believe is a good candidate for anticoagulation. This will be discussed further with cardiology. 4. Underlying coronary artery disease with prior stent placement 5. Hypertensive urgency, patient reports compliance with his medication. Blood pressure is improving. Hydralazine ordered as needed. May need to adjust his home regimen.
[2016-10-03] MEDS: SODIUM CHLORIDE 0.9% 1,000 ML IV SCH (16:34)
[2016-10-03] MEDS: ACETAMINOPHEN TAB 325 MG TAB PO PRN (23:44)
[2016-10-04 06:16] LABS: INR 1.5 (<1.2); Prothrombin Time 14.2 sec (9.0-12.0)
[2016-10-04 06:18] LABS: Basophils % (A) 0 %; CH 31.6; CHCM 33.3; Eosinophils # (A) 0.2 k/uL (0-0.7); Eosinophils % (A) 3 %; HCT 42.6 % (39.0-53.0); HDW 2.53; HGB 13.9 gm/dL (13.0-17.5); Luc # (Auto) 0.15; Luc % (Auto) 3; Lymphocytes # (A) 1.1 k/uL (1.0-4.8); Lymphocytes % (A) 19 %; MCH 31.2 pg (25.0-35.0); MCHC 32.7 g/dL (31.0-37.0); MCV 95.5 fL (80.0-100.0); Mean Platelet Volume 7.7; Monocytes # (A) 0.4 k/uL (0-1.0); Monocytes % (A) 7 %; Neutrophils # (A) 4.1 k/uL (1.3-7.7); Neutrophils % (A) 68 %; RBC 4.47 m/uL (4.30-5.90); RDW 14.7 % (11.5-15.5); WBC (Perox) 6.18
[2016-10-04 06:29] LABS: ALT 42 U/L (21-72); AST 21 U/L (17-59); Alkaline Phosphatase 73 U/L (38-126); Anion Gap 9 mmol/L; Blood Urea Nitrogen 18 mg/dL (9-20); Calcium 8.7 mg/dL (8.4-10.2); Carbon Dioxide 24 mmol/L (22-30); Chloride 108 mmol/L (98-107); Glucose 94 mg/dL (74-99); Non-African American GFR(MDRD) >60 (>60 ml/min/1.73 sqM); Potassium 3.9 mmol/L (3.5-5.1); Sodium 141 mmol/L (137-145); Total Bilirubin 1.1 mg/dL (0.2-1.3); Total Protein 5.6 g/dL (6.3-8.2)
[2016-10-04] MEDS: FINASTERIDE 5 MG TAB PO SCH (08:43)
[2016-10-04] MEDS: CLOPIDOGREL 75 MG TAB PO SCH (08:43)
[2016-10-04] MEDS: HEPARIN SODIUM,PORCINE 5,000 UNIT/ML 1 ML VIAL SQ SCH ×2 (08:43→20:14)
--- NOTE | 2016-10-04 08:47 | P.CRDCN ---
<Dee Richards E - Last Filed: 10/04/16 08:30> History of Present Illness Consult date: 10/04/16 Requesting physician: Lita Todd Reason for Consult (text): Fall Chief complaint: Fall History of present illness: This is a pleasant 81-year-old gentleman who follows regularly with Dr. Dolores Deutsch in the office. He has a known history of coronary artery disease , most recently the patient underwent stenting of the ramus intermediate and circumflex in February of this year in [place], he also had unsuccessful angioplasty of the right coronary artery performed in April of this year in [place]. Patient also has history of hypertension, hyperlipidemia, family history of premature coronary artery disease, paroxysmal atrial fibrillation and prior SVT ablation. Patient presents to the hospital on this occasion with an episode of fall. He states that he was pushing his lawn fertilizer, became mildly dizzy, also felt unsteady and states that he fell over top of the fertilizer and onto the ground. He did incur a mild injury to his hand as well as his face. There is a small laceration noted just underneath the nose. He states he did not pass out, he rolled over onto his side, stood up and walked into the house and at that time had no symptoms at all. In July of this year the patient presented to the hospital with a very similar episode where he experienced a fall without evidence of syncope. On this admission, patient's blood pressure on arrival to the emergency room was quite elevated, similar again to his presentation in July. Blood pressure on arrival to 12/117, heart rate in the 80s, 97% on room air, he is afebrile. 2 sets of orthostatics have been obtained so far without any significant change noted. EKG on arrival here showed atrial fibrillation with a controlled ventricular response. X-ray of the left hand revealed some soft tissue swelling with no acute fracture noted. CAT scan of the head and spine revealed chronic. Ventricular white matter ischemic changes. Possible nasal bone fracture, soft tissue swelling at the right frontal region. White blood cell count normal, platelet count 120, INR on admission 1.4, 1.5 this morning. Potassium 3.9, BUN 18, creatinine 0.9. Magnesium level 2.0. Initial troponin 0.016. Positive UTI. Patient does state that he's been urinating very frequently at home, no dysuria. He denies any recent chest pain, no palpitations. States that he had a stress test approximately 2 weeks ago which was reported to be normal. Echocardiogram with Doppler study performed in July revealed an ejection fraction of 50-55%. Past Medical History Past Medical History: Atrial Fibrillation, Cancer, Hyperlipidemia, Hypertension , Prostate Disorder Additional Past Medical History / Comment(s): HX SKIN CA, SVT status post ablation. FAILED STRESS TEST IN [place] AND GOT 3 STENTS 04/2016, melanoma History of Any Multi-Drug Resistant Organisms: None Reported Past Surgical History: Appendectomy, Heart Catheterization, Heart Catheterization With Stent, Tonsillectomy Additional Past Surgical History / Comment(s): SKIN GRAFT TO FOREHEAD R/T SKIN CA Past Anesthesia/Blood Transfusion Reactions: No Reported Reaction Date of Last Stent Placement:: 04/2016 Past Psychological History: No Psychological Hx Reported Smoking Status: Former smoker Past Alcohol Use History: Rare Past Drug Use History: None Reported - Past Family History Mother Family Medical History: Cancer Father Family Medical History: Cancer Additional Family Medical History / Comment(s): LEUKEMIA Medications and Allergies Home Medications Medication Instructions Recorded Confirmed Type Doxazosin [Cardura] 4 mg PO HS 11/29/14 10/02/16 History Finasteride [Proscar] 5 mg PO DAILY 11/29/14 10/02/16 History Multivit-Min/FA/Lycopene/Lut 1 tab PO DAILY 11/29/14 10/02/16 History [Centrum Silver Tablet] Atorvastatin Calcium [Lipitor] 40 mg PO HS 07/07/15 10/02/16 History Metoprolol Succinate (ER) [Toprol 25 mg PO HS 07/07/15 10/02/16 History XL] Fish Oil/Dha/Epa [Fish Oil 1,200 1 cap PO DAILY 10/02/16 10/02/16 History mg Fish Oil] Furosemide [Lasix] 20 mg PO DAILY 10/02/16 10/02/16 History Warfarin [Coumadin] 2.5 mg PO MOWEFR 10/02/16 10/02/16 History Warfarin [Coumadin] 5 mg PO SUTUTHSA 10/02/16 10/02/16 History Allergies Allergy/AdvReac Type Severity Reaction Status Date / Time venom-honey bee Allergy Swelling Verified 10/02/16 23:25 [bee venom (honey bee)] Physical Exam Vitals: Vital Signs Temp Pulse Resp BP BP BP BP 10/04/16 04:00 84 16 164/89 161/84 174/101 10/03/16 23:52 89 16 10/03/16 23:49 97.6 F 89 16 160/90 10/03/16 20:00 96.9 F L 92 16 142/78 10/03/16 16:19 97.6 F 73 16 161/102 162/109 188/99 10/03/16 12:31 97.8 F 77 16 162/88 10/03/16 08:56 97.7 F 87 18 176/104 Pulse Ox 10/04/16 04:00 95 10/03/16 23:52 10/03/16 23:49 96 10/03/16 20:00 97 10/03/16 16:19 97 10/03/16 12:31 95 10/03/16 08:56 96 Intake and Output 10/03/16 10/04/16 10/04/16 22:59 06:59 14:59 Intake Total 300 240 Output Total 375 125 300 Balance -375 175 -60 Intake: IV 300 Sodium Chloride 0.9% 1, 250 000 ml @ 50 mls/hr IV . Q20H [facility] Rx#:[id number] cefTRIAXone 1,000 mg In 50 Sodium Chloride 0.9% 50 ml @ 100 mls/hr IVPB Q24H [facility] Rx#:[id number] Oral 240 Output: Urine 375 125 300 Other: Voiding Method Urinal Urinal # Voids 1 1 1 Weight 94.5 kg PHYSICAL EXAMINATION: HEENT: Head is atraumatic, normocephalic. Pupils equal, round. Neck is supple. There is no elevated jugular venous pressure. Patient does have a small laceration noted underneath his nose and some ecchymosis around the orbital area. HEART EXAMINATION: Heart S1 and S2 irregularly irregular CHEST EXAMINATION: Lungs are clear to auscultation and precussion. No chest wall tenderness is noted on palpation or with deep breathing. ABDOMEN: Soft, nontender. Bowel sounds are heard. No organomegaly noted. EXTREMITIES: 2+ peripheral pulses with no evidence of peripheral edema and no calf tenderness noted. Significant ecchymosis and swelling of the left hand NEUROLOGIC patient is awake, alert and oriented -3. . Results 10/04/16 05:33 10/04/16 05:33 Cardiac Enzymes 10/04/16 Range/Units 05:33 AST 21 (17-59) U/L Coagulation 10/04/16 Range/Units 05:33 PT 14.2 H (9.0-12.0) sec CBC 10/04/16 Range/Units 05:33 WBC 6.0 (3.8-10.6) k/uL RBC 4.47 (4.30-5.90) m/uL Hgb 13.9 (13.0-17.5) gm/dL Hct 42.6 (39.0-53.0) % Plt Count 120 L (150-450) k/uL Comprehensive Metabolic Panel 10/04/16 Range/Units 05:33 Sodium 141 (137-145) mmol/L Potassium 3.9 (3.5-5.1) mmol/L Chloride 108 H (98-107) mmol/L Carbon Dioxide 24 (22-30) mmol/L BUN 18 (9-20) mg/dL Creatinine 0.90 (0.66-1.25) mg/dL Glucose 94 (74-99) mg/dL Calcium 8.7 (8.4-10.2) mg/dL AST 21 (17-59) U/L ALT 42 (21-72) U/L Alkaline Phosphatase 73 (38-126) U/L Total Protein 5.6 L (6.3-8.2) g/dL Albumin 3.3 L (3.5-5.0) g/dL Current Medications Generic Name Dose Route Start Last Admin Trade Name Freq PRN Reason Stop Dose Admin Acetaminophen 650 mg 10/02/16 22:17 10/03/16 23:44 Tylenol Tab PO 650 mg Q6HR PRN Administration Mild Pain or Fever > 100.5 Atorvastatin Calcium 40 mg 10/02/16 23:45 10/03/16 19:58 Lipitor PO 40 mg HS [facility] Administration Clopidogrel Bisulfate 75 mg 10/04/16 09:00 Plavix PO DAILY [facility] Doxazosin Mesylate 4 mg 10/02/16 23:45 10/03/16 21:01 Cardura PO 4 mg HS [facility] Administration Finasteride 5 mg 10/04/16 09:00 Proscar PO DAILY [facility] Heparin Sodium (Porcine) 5,000 unit 10/04/16 09:00 Heparin SQ Q12HR [facility] Hydralazine HCl 10 mg 10/02/16 23:51 10/03/16 16:10 Apresoline IVP 10 mg Q6HR PRN Administration Blood Pressure - High Ceftriaxone Sodium 1,000 mg/ 50 mls @ 100 mls/hr 10/03/16 22:00 10/03/16 20: 50 Sodium Chloride IVPB 100 mls/hr Q24H [facility] Administration Sodium Chloride 1,000 mls @ 50 mls/hr 10/02/16 22:15 10/03/16 16:34 Saline 0.9% IV Not Given .Q20H [facility] Lisinopril 5 mg 10/04/16 09:00 Zestril PO DAILY [facility] Metoprolol Succinate 25 mg 10/02/16 23:45 10/03/16 19:58 Toprol Xl PO 25 mg HS [facility] Administration Miscellaneous Information 1 each 10/03/16 14:10 Magnesium Per Protocol MISCELLANE DAILY PRN Per Protocol Protocol Miscellaneous Information 1 each 10/03/16 14:10 Potassium Per Protocol MISCELLANE DAILY PRN Per Protocol Protocol Naloxone HCl 0.2 mg 10/02/16 22:17 Narcan IV Q2M PRN Opioid Reversal Ondansetron HCl 4 mg 10/03/16 14:10 Zofran IVP Q6HR PRN Nausea And Vomiting Intake and Output 10/03/16 10/04/16 10/04/16 22:59 06:59 14:59 Intake Total 300 240 Output Total 375 125 300 Balance -375 175 -60 Intake: IV 300 Sodium Chloride 0.9% 1, 250 000 ml @ 50 mls/hr IV . Q20H [facility] Rx#:[id number] cefTRIAXone 1,000 mg In 50 Sodium Chloride 0.9% 50 ml @ 100 mls/hr IVPB Q24H [facility] Rx#:[id number] Oral 240 Output: Urine 375 125 300 Other: Voiding Method Urinal Urinal # Voids 1 1 1 Weight 94.5 kg 10/04/16 05:33 10/04/16 05:33 EKG Interpretations (text) EKG shows atrial fibrillation with a controlled ventricular response Assessment and Plan Plan: Assessment and plan #1 fall with no clear-cut evidence of syncope, symptoms of dizziness and unsteadiness prior to fall #2 accelerated hypertension #3 hyperlipidemia #4 coronary artery disease with recent stent placement in February of this year, on Plavix #5 chronic persistent atrial fibrillation, on Coumadin, INR subtherapeutic #6 history of hypertension #7 history of melanoma #8 positive UTI Plan We'll repeat an echocardiogram with Doppler study. We will also obtain orthostatic blood pressure and heart rate every shift. Continue to monitor for any tachycardia or bradycardia arrhythmias. Further recommendations to follow. DNP note has been reviewed, I agree with a documented findings and plan of care. Patient was seen and examined. <Andriy Shafer - Last Filed: 10/04/16 10:37> Physical Exam Vitals: Vital Signs Temp Pulse Resp BP BP BP BP 10/04/16 08:00 96.2 F L 86 150/84 164/92 170/93 10/04/16 04:00 84 16 164/89 161/84 174/101 10/03/16 23:52 89 16 10/03/16 23:49 97.6 F 89 16 160/90 10/03/16 20:00 96.9 F L 92 16 142/78 10/03/16 16:19 97.6 F 73 16 161/102 162/109 188/99 10/03/16 12:31 97.8 F 77 16 162/88 Pulse Ox 10/04/16 08:00 95 10/04/16 04:00 95 10/03/16 23:52 10/03/16 23:49 96 10/03/16 20:00 97 10/03/16 16:19 97 10/03/16 12:31 95 Intake and Output 10/03/16 10/04/16 10/04/16 22:59 06:59 14:59 Intake Total 300 240 Output Total 375 125 300 Balance -375 175 -60 Intake: IV 300 Sodium Chloride 0.9% 1, 250 000 ml @ 50 mls/hr IV . Q20H [facility] Rx#:[id number] cefTRIAXone 1,000 mg In 50 Sodium Chloride 0.9% 50 ml @ 100 mls/hr IVPB Q24H [facility] Rx#:[id number] Oral 240 Output: Urine 375 125 300 Other: Voiding Method Urinal Urinal # Voids 1 1 1 Weight 94.5 kg Results 10/04/16 05:33 10/04/16 05:33 Cardiac Enzymes 10/04/16 Range/Units 05:33 AST 21 (17-59) U/L Coagulation 08/21/17 Range/Units 05:33 PT 14.2 H (9.0-12.0) sec CBC 10/04/16 Range/Units 05:33 WBC 6.0 (3.8-10.6) k/uL RBC 4.47 (4.30-5.90) m/uL Hgb 13.9 (13.0-17.5) gm/dL Hct 42.6 (39.0-53.0) % Plt Count 120 L (150-450) k/uL Comprehensive Metabolic Panel 10/04/16 Range/Units 05:33 Sodium 141 (137-145) mmol/L Potassium 3.9 (3.5-5.1) mmol/L Chloride 108 H (98-107) mmol/L Carbon Dioxide 24 (22-30) mmol/L BUN 18 (9-20) mg/dL Creatinine 0.90 (0.66-1.25) mg/dL Glucose 94 (74-99) mg/dL Calcium 8.7 (8.4-10.2) mg/dL AST 21 (17-59) U/L ALT 42 (21-72) U/L Alkaline Phosphatase 73 (38-126) U/L Total Protein 5.6 L (6.3-8.2) g/dL Albumin 3.3 L (3.5-5.0) g/dL Current Medications Generic Name Dose Route Start Last Admin Trade Name Freq PRN Reason Stop Dose Admin Acetaminophen 650 mg 10/02/16 22:17 10/03/16 23:44 Tylenol Tab PO 650 mg Q6HR PRN Administration Mild Pain or Fever > 100.5 Atorvastatin Calcium 40 mg 10/02/16 23:45 10/03/16 19:58 Lipitor PO 40 mg HS [facility] Administration Clopidogrel Bisulfate 75 mg 10/04/16 09:00 10/04/16 08:43 Plavix PO 75 mg DAILY [facility] Administration Doxazosin Mesylate 4 mg 10/02/16 23:45 10/03/16 21:01 Cardura PO 4 mg HS [facility] Administration Finasteride 5 mg 10/04/16 09:00 10/04/16 08:43 Proscar PO 5 mg DAILY [facility] Administration Heparin Sodium (Porcine) 5,000 unit 10/04/16 09:00 10/04/16 08:43 Heparin SQ 5,000 unit Q12HR [facility] Administration Hydralazine HCl 10 mg 10/02/16 23:51 10/03/16 16:10 Apresoline IVP 10 mg Q6HR PRN Administration Blood Pressure - High Ceftriaxone Sodium 1,000 mg/ 50 mls @ 100 mls/hr 10/03/16 22:00 10/03/16 20: 50 Sodium Chloride IVPB 100 mls/hr Q24H [facility] Administration Sodium Chloride 1,000 mls @ 50 mls/hr 10/02/16 22:15 10/03/16 16:34 Saline 0.9% IV Not Given .Q20H [facility] Lisinopril 5 mg 10/04/16 09:00 10/04/16 08:43 Zestril PO 5 mg DAILY [facility] Administration Metoprolol Succinate 25 mg 10/02/16 23:45 10/03/16 19:58 Toprol Xl PO 25 mg HS [facility] Administration Miscellaneous Information 1 each 10/03/16 14:10 Magnesium Per Protocol MISCELLANE DAILY PRN Per Protocol Protocol Miscellaneous Information 1 each 10/03/16 14:10 Potassium Per Protocol MISCELLANE DAILY PRN Per Protocol Protocol Naloxone HCl 0.2 mg 10/02/16 22:17 Narcan IV Q2M PRN Opioid Reversal Ondansetron HCl 4 mg 10/03/16 14:10 Zofran IVP Q6HR PRN Nausea And Vomiting Warfarin Sodium 2.5 mg 10/04/16 18:00 Coumadin PO [email or web address] [facility] Warfarin Sodium 5 mg 10/05/16 18:00 Coumadin PO [email or web address] [facility] Intake and Output 10/03/16 10/04/16 10/04/16 22:59 06:59 14:59 Intake Total 300 240 Output Total 375 125 300 Balance -375 175 -60 Intake: IV 300 Sodium Chloride 0.9% 1, 250 000 ml @ 50 mls/hr IV . Q20H [facility] Rx#:[id number] cefTRIAXone 1,000 mg In 50 Sodium Chloride 0.9% 50 ml @ 100 mls/hr IVPB Q24H [facility] Rx#:[id number] Oral 240 Output: Urine 375 125 300 Other: Voiding Method Urinal Urinal # Voids 1 1 1 Weight 94.5 kg 10/04/16 05:33 10/04/16 05:33
[2016-10-04] MEDS ORDERED: LISINOPRIL 5 MG TAB PO SCH (09:00)
--- NOTE | 2016-10-04 10:37 | P.CRDCN ---
History of Present Illness Chief complaint: weakness fall History of present illness: Patient seen and evaluated. Please see Dr. mendez is full note Patient took a fall denies syncope or presyncope but his legs became weak. Intermittently elevated blood pressures. Patient was started on Cardura few months back. 2 episodes since then He is orthostatic by 20 points on 2 different occasions Suggest Consider reducing Cardura to 2 mg by mouth daily His rates are well controlled on low dose Toprol Consider increasing Zestril to 10 mg Physical therapy, ambulation in the hallways and watch for orthostatic hypotension Past Medical History Past Medical History: Atrial Fibrillation, Cancer, Hyperlipidemia, Hypertension , Prostate Disorder Additional Past Medical History / Comment(s): HX SKIN CA, SVT status post ablation. FAILED STRESS TEST IN [place] AND GOT 3 STENTS 04/2016, melanoma History of Any Multi-Drug Resistant Organisms: None Reported Past Surgical History: Appendectomy, Heart Catheterization, Heart Catheterization With Stent, Tonsillectomy Additional Past Surgical History / Comment(s): SKIN GRAFT TO FOREHEAD R/T SKIN CA Past Anesthesia/Blood Transfusion Reactions: No Reported Reaction Date of Last Stent Placement:: 04/2016 Past Psychological History: No Psychological Hx Reported Smoking Status: Former smoker Past Alcohol Use History: Rare Past Drug Use History: None Reported - Past Family History Mother Family Medical History: Cancer Father Family Medical History: Cancer Additional Family Medical History / Comment(s): LEUKEMIA Medications and Allergies Home Medications Medication Instructions Recorded Confirmed Type Doxazosin [Cardura] 4 mg PO HS 11/29/14 10/02/16 History Finasteride [Proscar] 5 mg PO DAILY 11/29/14 10/02/16 History Multivit-Min/FA/Lycopene/Lut 1 tab PO DAILY 11/29/14 10/02/16 History [Centrum Silver Tablet] Atorvastatin Calcium [Lipitor] 40 mg PO HS 07/07/15 10/02/16 History Metoprolol Succinate (ER) [Toprol 25 mg PO HS 07/07/15 10/02/16 History XL] Fish Oil/Dha/Epa [Fish Oil 1,200 1 cap PO DAILY 10/02/16 10/02/16 History mg Fish Oil] Furosemide [Lasix] 20 mg PO DAILY 10/02/16 10/02/16 History Warfarin [Coumadin] 2.5 mg PO MOWEFR 10/02/16 10/02/16 History Warfarin [Coumadin] 5 mg PO SUTUTHSA 10/02/16 10/02/16 History Allergies Allergy/AdvReac Type Severity Reaction Status Date / Time venom-honey bee Allergy Swelling Verified 10/02/16 23:25 [bee venom (honey bee)] Physical Exam Vitals: Vital Signs Temp Pulse Resp BP BP BP BP 10/04/16 08:00 96.2 F L 86 150/84 164/92 170/93 10/04/16 04:00 84 16 164/89 161/84 174/101 10/03/16 23:52 89 16 10/03/16 23:49 97.6 F 89 16 160/90 10/03/16 20:00 96.9 F L 92 16 142/78 10/03/16 16:19 97.6 F 73 16 161/102 162/109 188/99 10/03/16 12:31 97.8 F 77 16 162/88 Pulse Ox 10/04/16 08:00 95 10/04/16 04:00 95 10/03/16 23:52 10/03/16 23:49 96 10/03/16 20:00 97 10/03/16 16:19 97 10/03/16 12:31 95 Intake and Output 10/03/16 10/04/16 10/04/16 22:59 06:59 14:59 Intake Total 300 240 Output Total 375 125 300 Balance -375 175 -60 Intake: IV 300 Sodium Chloride 0.9% 1, 250 000 ml @ 50 mls/hr IV . Q20H [facility] Rx#:[id number] cefTRIAXone 1,000 mg In 50 Sodium Chloride 0.9% 50 ml @ 100 mls/hr IVPB Q24H [facility] Rx#:[id number] Oral 240 Output: Urine 375 125 300 Other: Voiding Method Urinal Urinal # Voids 1 1 1 Weight 94.5 kg Results 10/04/16 05:33 10/04/16 05:33 Cardiac Enzymes 10/04/16 Range/Units 05:33 AST 21 (17-59) U/L Coagulation 10/04/16 Range/Units 05:33 PT 14.2 H (9.0-12.0) sec CBC 10/04/16 Range/Units 05:33 WBC 6.0 (3.8-10.6) k/uL RBC 4.47 (4.30-5.90) m/uL Hgb 13.9 (13.0-17.5) gm/dL Hct 42.6 (39.0-53.0) % Plt Count 120 L (150-450) k/uL Comprehensive Metabolic Panel 10/04/16 Range/Units 05:33 Sodium 141 (137-145) mmol/L Potassium 3.9 (3.5-5.1) mmol/L Chloride 108 H (98-107) mmol/L Carbon Dioxide 24 (22-30) mmol/L BUN 18 (9-20) mg/dL Creatinine 0.90 (0.66-1.25) mg/dL Glucose 94 (74-99) mg/dL Calcium 8.7 (8.4-10.2) mg/dL AST 21 (17-59) U/L ALT 42 (21-72) U/L Alkaline Phosphatase 73 (38-126) U/L Total Protein 5.6 L (6.3-8.2) g/dL Albumin 3.3 L (3.5-5.0) g/dL Current Medications Generic Name Dose Route Start Last Admin Trade Name Freq PRN Reason Stop Dose Admin Acetaminophen 650 mg 10/02/16 22:17 10/03/16 23:44 Tylenol Tab PO 650 mg Q6HR PRN Administration Mild Pain or Fever > 100.5 Atorvastatin Calcium 40 mg 10/02/16 23:45 10/03/16 19:58 Lipitor PO 40 mg HS [facility] Administration Clopidogrel Bisulfate 75 mg 10/04/16 09:00 10/04/16 08:43 Plavix PO 75 mg DAILY [facility] Administration Doxazosin Mesylate 4 mg 10/02/16 23:45 10/03/16 21:01 Cardura PO 4 mg HS [facility] Administration Finasteride 5 mg 10/04/16 09:00 10/04/16 08:43 Proscar PO 5 mg DAILY [facility] Administration Heparin Sodium (Porcine) 5,000 unit 10/04/16 09:00 10/04/16 08:43 Heparin SQ 5,000 unit Q12HR [facility] Administration Hydralazine HCl 10 mg 10/02/16 23:51 10/03/16 16:10 Apresoline IVP 10 mg Q6HR PRN Administration Blood Pressure - High Ceftriaxone Sodium 1,000 mg/ 50 mls @ 100 mls/hr 10/03/16 22:00 10/03/16 20: 50 Sodium Chloride IVPB 100 mls/hr Q24H [facility] Administration Sodium Chloride 1,000 mls @ 50 mls/hr 10/02/16 22:15 10/03/16 16:34 Saline 0.9% IV Not Given .Q20H [facility] Lisinopril 5 mg 10/04/16 09:00 10/04/16 08:43 Zestril PO 5 mg DAILY [facility] Administration Metoprolol Succinate 25 mg 10/02/16 23:45 10/03/16 19:58 Toprol Xl PO 25 mg HS [facility]IO Administration Miscellaneous Information 1 each 10/03/16 14:10 Magnesium Per Protocol MISCELLANE DAILY PRN Per Protocol Protocol Miscellaneous Information 1 each 10/03/16 14:10 Potassium Per Protocol MISCELLANE DAILY PRN Per Protocol Protocol Naloxone HCl 0.2 mg 10/02/16 22:17 Narcan IV Q2M PRN Opioid Reversal Ondansetron HCl 4 mg 10/03/16 14:10 Zofran IVP Q6HR PRN Nausea And Vomiting Warfarin Sodium 2.5 mg 10/04/16 18:00 Coumadin PO [email or web address] [facility] Warfarin Sodium 5 mg 10/05/16 18:00 Coumadin PO [email or web address] [facility] Intake and Output 10/03/16 10/04/16 10/04/16 22:59 06:59 14:59 Intake Total 300 240 Output Total 375 125 300 Balance -375 175 -60 Intake: IV 300 Sodium Chloride 0.9% 1, 250 000 ml @ 50 mls/hr IV . Q20H [facility] Rx#:[id number] cefTRIAXone 1,000 mg In 50 Sodium Chloride 0.9% 50 ml @ 100 mls/hr IVPB Q24H [facility] Rx#:[id number] Oral 240 Output: Urine 375 125 300 Other: Voiding Method Urinal Urinal # Voids 1 1 1 Weight 94.5 kg 10/04/16 05:33 10/04/16 05:33
--- NOTE | 2016-10-04 11:56 | P.PN ---
Subjective This is a 81-year-old gentleman with very complex past medical history noted below who presented to the emergency room with an episode this dizziness and a fall. Patient said that he was working on his lawn outside and on his way back he started feeling dizzy and eventually lost his balance and had a fall forward and landed on his face on the concrete driveway. Patient did not loose consciousness. He said that he noticed bleeding from his nose but he was able to get up and go inside the house where his tried to help him clean of the blood. He was eventually transferred to the emergency room for further evaluation. Patient said that he is not sure what happened. Denies any chest pain or shortness of breath. He had a fall couple of month ago requiring hospitalization. Patient is on Coumadin but his INR on presentation was subtherapeutic. Computed tomography scan of the head showed no acute intracranial findings. Patient was noted to have significantly elevated blood pressure on presentation that was treated with IV hydralazine. 10/04/2016 patient did have evidence of orthostatic hypotension. He had been having the drop and 20 and his blood pressure. Cardiology is following. They' re recommending a decrease in his Cardura to 2 mg daily. Also VICKIE hose and to work with physical therapy. Patient's orthostatic blood pressures have shown improvement with the IV fluids. He still has some dizziness and changing positions during the orthostatics. He has ambulated in the hallway. He denies any chest pain or shortness of breath. Denies any nausea or vomiting. Denies any bowel movement changes or urinary symptoms. Objective - Vital Signs Vital signs: Vital Signs Temp 96.2 F L 10/04/16 08:00 Pulse 86 10/04/16 08:00 Resp 16 10/04/16 04:00 BP 170/93 10/04/16 08:00 Pulse Ox 95 10/04/16 08:00 Intake & Output 10/03/16 10/04/16 10/04/16 18:59 06:59 18:59 Intake Total 236 300 240 Output Total 625 275 300 Balance -389 25 -60 Weight 94.5 kg Intake: IV 300 Sodium Chloride 0.9% 1, 250 000 ml @ 50 mls/hr IV . Q20H [facility] Rx#:[id number] cefTRIAXone 1,000 mg In 50 Sodium Chloride 0.9% 50 ml @ 100 mls/hr IVPB Q24H [facility] Rx#:[id number] Oral 236 240 Output: Urine 625 275 300 Other: Voiding Method Urinal Urinal # Voids 1 1 # Bowel Movements 1 - Exam Head normocephalic. Multiple facial bruises from fall Neck supple Lungs clear to auscultation bilaterally no wheezing or crackles Heart regular rate and rhythm S1-S2, no rub or gallop Abdomen is soft nontender nondistended positive bowel sounds no hepatosplenomegaly Extremities no edema Neuro alert and orientated to 3 - Labs CBC & Chem 7: 10/04/16 05:33 10/04/16 05:33 Labs: Abnormal Lab Results - Last 24 Hours (Table) 10/04/16 10/04/16 10/04/16 Range/Units 05:33 05:33 05:33 Plt Count 120 L (150-450) k/uL PT 14.2 H (9.0-12.0) sec INR 1.5 H (<1.2) Chloride 108 H (98-107) mmol/L Total Protein 5.6 L (6.3-8.2) g/dL Albumin 3.3 L (3.5-5.0) g/dL Microbiology - Last 24 Hours (Table) 10/02/16 20:25 Urine Culture - Preliminary Urine,Voided Assessment and Plan Plan: 1. episode of dizziness, loss of balance, and fall: Likely secondary to orthostatic hypotension. 12-lead EKG showed rate controlled atrial fibrillation. Orthostatic blood pressures are showing improvement with IV fluids. Cardiology recommending to decrease the Cardura to 2 mg at bedtime, VICKIE hose and continue physical therapy. Repeat orthostatic blood pressures in the morning. Echocardiogram couple of month ago showed moderate concentric left ventricular hypertrophy but no significant valvular abnormalities reported. Preserved ejection fraction of 50%. 2. Diastolic heart failure currently compensated with no evidence of exacerbation 3. Chronic atrial fibrillation on anticoagulation with Coumadin. Discussed case with cardiology. They are recommending to resume patient's Coumadin. He is at more risk being without the Coumadin. 4. Underlying coronary artery disease with prior stent placement 5. Hypertensive urgency, patient reports compliance with his medication. Blood pressure is improving. Hydralazine ordered as needed. May need to adjust his home regimen. Monitoring blood pressures. Cardiology may increase the lisinopril to 10 mg daily. Continue to monitor I performed an examination of the patient and discussed their management with the physician Karate Black Belt. I have reviewed the Physician Karate Black Belt's notes and agree with the documented findings and plan of care
--- NOTE | 2016-10-04 12:06 | ECHOF ---
Referral Reason:fall MEASUREMENTS -------- HEIGHT: 182.9 cm WEIGHT: 94.3 kg BP: 164/89 RVIDd: 3.4 cm (< 3.3) IVSd: 1.7 cm (0.6 - 1.1) LVIDd: 5.1 cm (3.9 - 5.3) LVPWd: 1.4 cm (0.6 - 1.1) IVSs: 1.6 cm LVIDs: 3.8 cm LVPWs: 1.3 cm LAESV Index (A-L): 44.90 ml/m Ao Diam: 4.1 cm (2.0 - 3.7) AV Cusp: 1.7 cm (1.5 - 2.6) LA Diam: 6.4 cm (2.7 - 3.8) MV EXCURSION: 18.134 mm (> 18.000) MV EF SLOPE: 96 mm/s (70 - 150) EPSS: 0.3 cm MV E Ananda: 0.69 m/s MV DecT: 135 ms MV A Ananda: 0.21 m/s MV E/A Ratio: 3.24 AR PHT: 344 ms RAP: 5.00 mmHg RVSP: 23.57 mmHg FINDINGS -------- Undetermined rhythm. This was a technically adequate study. There is mild concentric left ventricular hypertrophy. Overall left ventricular systolic function is normal with, an EF between 55 - 60 %. The right ventricle is normal in size. LA is severely dilated >40 ml/m2 The right atrial size is normal. There is mild aortic valve sclerosis. Trace to mild aortic regurgitation. Mild mitral annular calcification present. [id number] mitral regurgitation is present. Mild tricuspid regurgitation present. There is no evidence of pulmonary hypertension. The right ventricular systolic pressure, as measured by Doppler, is 23.57mmHg. Trace/mild (physiologic) pulmonic regurgitation. 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 There is a small, generalized pericardial effusion present. CONCLUSIONS -------- 1. There is mild concentric left ventricular hypertrophy. 2. The right ventricular systolic pressure, as measured by Doppler, is 23.57mmHg. 3. Trace/mild (physiologic) pulmonic regurgitation. 4. 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 5. There is a small, generalized pericardial effusion present. 6. Overall left ventricular systolic function is normal with, an EF between 55 - 60 %. 7. LA is severely dilated >40 ml/m2 8. There is mild aortic valve sclerosis. 9. Trace to mild aortic regurgitation. 10. Mild mitral annular calcification present. 11. [id number] mitral regurgitation is present. 12. Mild tricuspid regurgitation present. 13. There is no evidence of pulmonary hypertension. [employer]: Irina Guidry RDCS
[2016-10-04] MEDS: LISINOPRIL 10 MG TAB PO SCH (17:49)
[2016-10-04] MEDS: SODIUM CHLORIDE 0.9% 1,000 ML IV SCH (17:50)
[2016-10-04] MEDS ORDERED: WARFARIN 2.5 MG TAB PO SCH (18:00)
[2016-10-04] MEDS: ATORVASTATIN 40 MG TAB PO SCH (20:14)
[2016-10-04] MEDS: DOXAZOSIN 2 MG TAB PO SCH (20:14)
[2016-10-04] MEDS: METOPROLOL SUCCINATE (ER) 25 MG TAB.ER.24H PO SCH (20:14)
[2016-10-05] MEDS: LISINOPRIL 10 MG TAB PO SCH ×2 (06:05→17:27)
[2016-10-05 06:37] LABS: Basophils % (A) 0 %; CH 31.1; CHCM 33.2; Eosinophils # (A) 0.2 k/uL (0-0.7); Eosinophils % (A) 3 %; HDW 2.57; Luc # (Auto) 0.15; Luc % (Auto) 3; Lymphocytes # (A) 1.1 k/uL (1.0-4.8); Lymphocytes % (A) 20 %; MCH 31.4 pg (25.0-35.0); MCHC 33.3 g/dL (31.0-37.0); MCV 94.2 fL (80.0-100.0); Mean Platelet Volume 7.5; Monocytes # (A) 0.4 k/uL (0-1.0); Monocytes % (A) 7 %; Neutrophils # (A) 3.8 k/uL (1.3-7.7); Neutrophils % (A) 67 %; RBC 4.46 m/uL (4.30-5.90); RDW 14.6 % (11.5-15.5); WBC 5.7 k/uL (3.8-10.6); WBC (Perox) 5.85
[2016-10-05 06:43] LABS: INR 1.4 (<1.2); Prothrombin Time 13.3 sec (9.0-12.0)
[2016-10-05 06:51] LABS: ALT 36 U/L (21-72); AST 20 U/L (17-59); Alkaline Phosphatase 67 U/L (38-126); Anion Gap 8 mmol/L; Blood Urea Nitrogen 18 mg/dL (9-20); Calcium 8.4 mg/dL (8.4-10.2); Carbon Dioxide 25 mmol/L (22-30); Chloride 109 mmol/L (98-107); Glucose 89 mg/dL (74-99); Non-African American GFR(MDRD) >60 (>60 ml/min/1.73 sqM); Potassium 3.8 mmol/L (3.5-5.1); Sodium 142 mmol/L (137-145); Total Protein 5.5 g/dL (6.3-8.2)
[2016-10-05] MEDS: HEPARIN SODIUM,PORCINE 5,000 UNIT/ML 1 ML VIAL SQ SCH ×2 (08:40→21:03)
[2016-10-05] MEDS: CLOPIDOGREL 75 MG TAB PO SCH (08:40)
[2016-10-05] MEDS: FINASTERIDE 5 MG TAB PO SCH (08:41)
[2016-10-05] MEDS: SODIUM CHLORIDE 0.9% 1,000 ML IV SCH ×2 (08:41→21:02)
--- NOTE | 2016-10-05 15:42 | P.PN ---
Subjective Principal diagnosis: Fall This is a pleasant 81-year-old gentleman who follows regularly with Dr. Dolores Deutsch in the office. He has a known history of coronary artery disease , most recently the patient underwent stenting of the ramus intermediate and circumflex in February of this year in [place], he also had unsuccessful angioplasty of the right coronary artery performed in April of this year in [place]. Patient also has history of hypertension, hyperlipidemia, family history of premature coronary artery disease, paroxysmal atrial fibrillation and prior SVT ablation. Patient presents to the hospital on this occasion with an episode of fall. He states that he was pushing his lawn fertilizer, became mildly dizzy, also felt unsteady and states that he fell over top of the fertilizer and onto the ground. He did incur a mild injury to his hand as well as his face. There is a small laceration noted just underneath the nose. He states he did not pass out, he rolled over onto his side, stood up and walked into the house and at that time had no symptoms at all. In July of this year the patient presented to the hospital with a very similar episode where he experienced a fall without evidence of syncope. On this admission, patient's blood pressure on arrival to the emergency room was quite elevated, similar again to his presentation in July. Blood pressure on arrival to 12/117, heart rate in the 80s, 97% on room air, he is afebrile. 2 sets of orthostatics have been obtained so far without any significant change noted. EKG on arrival here showed atrial fibrillation with a controlled ventricular response. X-ray of the left hand revealed some soft tissue swelling with no acute fracture noted. CAT scan of the head and spine revealed chronic. Ventricular white matter ischemic changes. Possible nasal bone fracture, soft tissue swelling at the right frontal region. White blood cell count normal, platelet count 120, INR on admission 1.4, 1.5 this morning. Potassium 3.9, BUN 18, creatinine 0.9. Magnesium level 2.0. Initial troponin 0.016. Positive UTI. Patient does state that he's been urinating very frequently at home, no dysuria. He denies any recent chest pain, no palpitations. States that he had a stress test approximately 2 weeks ago which was reported to be normal. Echocardiogram with Doppler study performed in July revealed an ejection fraction of 50-55%. 10/05/2016. Cardura dose was decreased to 2 mg daily yesterday and the dose of lisinopril increased. Patient's blood pressure earlier 164/77. This afternoon's blood pressure up in the 180 systolic. We will add a small dose of Norvasc to the medication regime. He may be able to be discharged home from cardiology's perspective and has been instructed to follow-up with Dr. Dolores Deutsch prior to his travel to [place]. Objective - Vital Signs Vital signs: Vital Signs Temp 97.0 F L 10/05/16 12:00 Pulse 76 10/05/16 12:00 Resp 18 10/05/16 12:00 BP 164/83 10/05/16 12:00 Pulse Ox 95 10/05/16 12:00 Intake & Output 10/04/16 10/05/16 10/05/16 18:59 06:59 18:59 Intake Total 880 250 548 Output Total 300 250 275 Balance 580 0 273 Weight 94 kg Intake: IV 300 250 250 Sodium Chloride 0.9% 1, 300 250 250 000 ml @ 50 mls/hr IV . Q20H [facility] Rx#:[id number] Oral 580 298 Output: Urine 300 250 275 Other: Voiding Method Urinal Urinal # Voids 1 1 - Exam PHYSICAL EXAMINATION: HEENT: Head is atraumatic, normocephalic. Pupils equal, round. Neck is supple. There is no elevated jugular venous pressure. Patient does have a small laceration noted underneath his nose and some ecchymosis around the orbital area. HEART EXAMINATION: Heart S1 and S2 irregularly irregular CHEST EXAMINATION: Lungs are clear to auscultation and precussion. No chest wall tenderness is noted on palpation or with deep breathing. ABDOMEN: Soft, nontender. Bowel sounds are heard. No organomegaly noted. EXTREMITIES: 2+ peripheral pulses with no evidence of peripheral edema and no calf tenderness noted. Significant ecchymosis and swelling of the left hand NEUROLOGIC patient is awake, alert and oriented -3. . - Labs CBC & Chem 7: 10/05/16 06:11 10/05/16 06:11 Labs: Abnormal Lab Results - Last 24 Hours (Table) 10/05/16 10/05/16 10/05/16 Range/Units 06:11 06:11 06:11 Plt Count 123 L (150-450) k/uL PT 13.3 H (9.0-12.0) sec INR 1.4 H (<1.2) Chloride 109 H (98-107) mmol/L Total Protein 5.5 L (6.3-8.2) g/dL Albumin 3.3 L (3.5-5.0) g/dL Microbiology - Last 24 Hours (Table) 10/02/16 20:25 Urine Culture - Final Urine,Voided Staphylococcus epidermidis Assessment and Plan Plan: Assessment and plan #1 fall with no clear-cut evidence of syncope, symptoms of dizziness and unsteadiness prior to fall #2 accelerated hypertension #3 hyperlipidemia #4 coronary artery disease with recent stent placement in February of this year, on Plavix #5 chronic persistent atrial fibrillation, on Coumadin, INR subtherapeutic #6 history of hypertension #7 history of melanoma #8 positive UTI Plan From cardiology's perspective, we will add a small dose of Norvasc to the patient's medication regime. He may be able to be discharged home once cleared by the primary and we'll make him a follow-up appointment to see Dr. SHAGGY Deutsch in the office within one week. DNP note has been reviewed, I agree with a documented findings and plan of care. Patient was seen and examined.
[2016-10-05] MEDS: amLODIPine 5 MG TAB PO SCH (16:40)
--- NOTE | 2016-10-05 17:34 | P.PN ---
Subjective Patient was seen and examined on 10/05/2016 patient did have evidence of orthostatic hypotension. He had been having the drop and 20 and his blood pressure. Cardiology is following. They're recommending a decrease in his Cardura to 2 mg daily. Norvasc 5 mg daily was added to his regimen Also VICKIE hose and to work with physical therapy. Patient's orthostatic blood pressures have shown improvement with the IV fluids. He still has some dizziness and changing positions during the orthostatics. He has ambulated in the hallway. He denies any chest pain or shortness of breath. Denies any nausea or vomiting. Denies any bowel movement changes or urinary symptoms. Patient also has evidence of urinary tract infection maintained on Rocephin 1 g IV every 24 hours Objective - Vital Signs Vital signs: Vital Signs Temp 97.1 F L 10/05/16 15:39 Pulse 85 10/05/16 15:39 Resp 18 10/05/16 15:39 BP 187/117 10/05/16 15:39 Pulse Ox 95 10/05/16 15:39 Intake & Output 10/04/16 10/05/16 10/05/16 18:59 06:59 18:59 Intake Total 880 250 548 Output Total 300 250 275 Balance 580 0 273 Weight 94 kg Intake: IV 300 250 250 Sodium Chloride 0.9% 1, 300 250 250 000 ml @ 50 mls/hr IV . Q20H [facility] Rx#:[id number] Oral 580 298 Output: Urine 300 250 275 Other: Voiding Method Urinal Urinal # Voids 1 1 - Exam In general patient is alert and oriented 3 in no apparent distress HEENT with the trauma due to recent fall Neck is supple no JVD no goiter no lymphadenopathy Chest exam reveals a few scattered rhonchi no wheezing Cardiac exam reveals regular heart sounds S1 and S2 no gallops no murmurs Abdomen is soft nontender no organomegaly Extremity exam reveals no edema no cyanosis or clubbing - Labs CBC & Chem 7: 10/05/16 06:11 10/05/16 06:11 Labs: Abnormal Lab Results - Last 24 Hours (Table) 10/05/16 10/05/16 10/05/16 Range/Units 06:11 06:11 06:11 Plt Count 123 L (150-450) k/uL PT 13.3 H (9.0-12.0) sec INR 1.4 H (<1.2) Chloride 109 H (98-107) mmol/L Total Protein 5.5 L (6.3-8.2) g/dL Albumin 3.3 L (3.5-5.0) g/dL Microbiology - Last 24 Hours (Table) 10/02/16 20:25 Urine Culture - Final Urine,Voided Staphylococcus epidermidis Assessment and Plan Plan: 1. episode of dizziness, loss of balance, and fall: Likely secondary to orthostatic hypotension. 12-lead EKG showed rate controlled atrial fibrillation. Orthostatic blood pressures are showing improvement with IV fluids. Cardiology recommending to decrease the Cardura to 2 mg at bedtime, also Norvasc 5 mg by mouth daily was added to his medication regimen blood pressure is still elevated VICKIE hose and continue physical therapy. Repeat orthostatic blood pressures in the morning. Echocardiogram couple of month ago showed moderate concentric left ventricular hypertrophy but no significant valvular abnormalities reported. Preserved ejection fraction of 50%. 2. Diastolic heart failure currently compensated with no evidence of exacerbation 3. Chronic atrial fibrillation on anticoagulation with Coumadin. Discussed case with cardiology. They are recommending to resume patient's Coumadin. He is at more risk being without the Coumadin. 4. Underlying coronary artery disease with prior stent placement 5. Hypertensive urgency, patient reports compliance with his medication. Blood pressure is improving. Hydralazine ordered as needed. Norvasc 5 mg by mouth daily was added to regimen blood pressure is still elevated May need to adjust his home regimen. Monitoring blood pressures. Cardiology may increase the lisinopril to 10 mg daily. Continue to monitor 6. urinary tract infection maintained on Rocephin 1 g IV every 24 hours awaiting urine culture results
[2016-10-05] MEDS ORDERED: WARFARIN 5 MG TAB PO SCH (18:00)
[2016-10-05] MEDS: ATORVASTATIN 40 MG TAB PO SCH (21:02)
[2016-10-05] MEDS: DOXAZOSIN 2 MG TAB PO SCH (21:02)
[2016-10-05] MEDS: METOPROLOL SUCCINATE (ER) 25 MG TAB.ER.24H PO SCH (21:03)
[2016-10-05 22:23] VITALS: RESP 16
[2016-10-06] MEDS: LISINOPRIL 10 MG TAB PO SCH (06:03)
[2016-10-06 06:39] LABS: Basophils % (A) 0 %; CH 31.4; CHCM 33.5; Eosinophils # (A) 0.2 k/uL (0-0.7); Eosinophils % (A) 3 %; HCT 40.8 % (39.0-53.0); HDW 2.59; HGB 13.7 gm/dL (13.0-17.5); Luc % (Auto) 2; Lymphocytes # (A) 0.8 k/uL (1.0-4.8); Lymphocytes % (A) 15 %; MCH 31.7 pg (25.0-35.0); MCHC 33.7 g/dL (31.0-37.0); Mean Platelet Volume 7.7; Monocytes # (A) 0.4 k/uL (0-1.0); Monocytes % (A) 7 %; Neutrophils # (A) 3.9 k/uL (1.3-7.7); Neutrophils % (A) 73 %; RBC 4.34 m/uL (4.30-5.90); RDW 14.6 % (11.5-15.5); WBC 5.3 k/uL (3.8-10.6); WBC (Perox) 5.44
[2016-10-06 06:48] LABS: INR 1.3 (<1.2); Prothrombin Time 12.5 sec (9.0-12.0)
[2016-10-06 07:02] LABS: ALT 40 U/L (21-72); AST 20 U/L (17-59); Alkaline Phosphatase 79 U/L (38-126); Anion Gap 8 mmol/L; Blood Urea Nitrogen 16 mg/dL (9-20); Calcium 8.8 mg/dL (8.4-10.2); Carbon Dioxide 24 mmol/L (22-30); Chloride 108 mmol/L (98-107); Glucose 107 mg/dL (74-99); Magnesium 1.9 mg/dL (1.6-2.3); Non-African American GFR(MDRD) >60 (>60 ml/min/1.73 sqM); Potassium 3.8 mmol/L (3.5-5.1); Sodium 140 mmol/L (137-145); Total Bilirubin 0.9 mg/dL (0.2-1.3); Total Protein 5.7 g/dL (6.3-8.2)
[2016-10-06] MEDS: CLOPIDOGREL 75 MG TAB PO SCH (08:56)
[2016-10-06] MEDS: amLODIPine 5 MG TAB PO SCH (08:56)
[2016-10-06] MEDS: HEPARIN SODIUM,PORCINE 5,000 UNIT/ML 1 ML VIAL SQ SCH (08:56)
[2016-10-06] MEDS: FINASTERIDE 5 MG TAB PO SCH (08:56)
[2016-10-06 09:12] VITALS: PULSE 80
[2016-10-06] MEDS ORDERED: TAMSULOSIN 0.4 MG CAP.ER.24H PO SCH (13:45)
--- NOTE | 2016-10-06 13:54 | P.DS ---
Providers Date of admission: 10/02/16 22:20 Expected date of discharge: 10/06/16 Attending physician: Joaquim Soni Consults: 10/03/16 14:09 Consult Physician Routine Consulting Provider: Andriy Shafer Consult Reason/Comments: syncope Do you want consulting provider notified?: Yes Primary care physician: Piyush Gutierrez [facility] Course: Diagnosis on discharge: 1. episode of dizziness, loss of balance, and fall: Exact etiology unclear. 12 -lead EKG showed rate controlled atrial fibrillation. Possibly related to dehydration as patient was working out in the yard. I would check orthostatic blood pressure. We'll continue gentle IV fluid hydration. Telemetry monitoring. I would consult cardiology. Echocardiogram couple of month ago showed moderate concentric left ventricular hypertrophy but no significant valvular abnormalities reported. Preserved ejection fraction of 50%. 2. Diastolic heart failure currently compensated with no evidence of exacerbation 3. Chronic atrial fibrillation on anticoagulation with Coumadin. I would hold off Coumadin. I discussed risks and benefits of anticoagulation with the patient given that this is his second fall in 2 months. I don't believe is a good candidate for anticoagulation. This will be discussed further with cardiology. 4. Underlying coronary artery disease with prior stent placement 5. Hypertensive urgency, patient reports compliance with his medication. Blood pressure is improving. Hydralazine ordered as needed. May need to adjust his home regimen. Hospital course: This is a 81-year-old gentleman with very complex past medical history noted below who presented to the emergency room with an episode this dizziness and a fall. Patient said that he was working on his lawn outside and on his way back he started feeling dizzy and eventually lost his balance and had a fall forward and landed on his face on the concrete driveway. Patient did not loose consciousness. He said that he noticed bleeding from his nose but he was able to get up and go inside the house where his tried to help him clean of the blood. He was eventually transferred to the emergency room for further evaluation. Patient said that he is not sure what happened. Denies any chest pain or shortness of breath. He had a fall couple of month ago requiring hospitalization. Patient is on Coumadin but his INR on presentation was subtherapeutic. Computed tomography scan of the head showed no acute intracranial findings. Patient was noted to have significantly elevated blood pressure on presentation that was treated with IV hydralazine. Due to orthostatic hypotention Doxazosyn was decreased gradually and then discontinued. Patient was started instead on Flomax 0.4 mg by mouth twice daily. For blood pressure management dose of lisinopril was increased from 5 mg once daily to 10 mg twice daily and Norvasc 10 mg by mouth daily was added to regimen. Initially Coumadin was discontinued due to follow with significant head trauma however per cardiology recommendation patient is at higher risk of not taking the Coumadin. Coumadin was resumed his INR still on the low side at the time of discharge. Patient had evidence of urinary tract infection he received IV Rocephin 1 g daily during this admission, he was given Cipro 250 mg twice daily for 5 more days of the time of discharge. Patient was stable he was doing well without any dizziness he was able to ambulate he was discharged home on 10/06/2016 he would be followed by his primary care physician within one week. He would also follows cardiology Dr. Dolores Deutsch. He would also have visiting nurse at home for blood pressure monitoring Patient Condition at Discharge: Stable Plan - Discharge Summary New Discharge Prescriptions: New amLODIPine [Norvasc] 10 mg PO DAILY tab Ciprofloxacin HCl [Cipro] 250 mg PO BID tab Lisinopril [Zestril] 10 mg PO Q12H tab Tamsulosin [Flomax] 0.4 mg PO BID cap Continue Multivit-Min/FA/Lycopene/Lut [Centrum Silver Tablet] 1 tab PO DAILY Finasteride [Proscar] 5 mg PO DAILY Atorvastatin Calcium [Lipitor] 40 mg PO HS Metoprolol Succinate (ER) [Toprol XL] 25 mg PO HS Clopidogrel [Plavix] 75 mg PO DAILY tab Warfarin [Coumadin] 2.5 mg PO MOWEFR Warfarin [Coumadin] 5 mg PO SUTUTHSA Furosemide [Lasix] 20 mg PO DAILY Fish Oil/Dha/Epa [Fish Oil 1,200 mg Fish Oil] 1 cap PO DAILY Discontinued Doxazosin [Cardura] 4 mg PO HS Lisinopril [Zestril] 5 mg PO DAILY tab Discharge Medication List Finasteride [Proscar] 5 mg PO DAILY 11/29/14 [History] Multivit-Min/FA/Lycopene/Lut [Centrum Silver Tablet] 1 tab PO DAILY 11/29/14 [ History] Atorvastatin Calcium [Lipitor] 40 mg PO HS 07/07/15 [History] Metoprolol Succinate (ER) [Toprol XL] 25 mg PO HS 07/07/15 [History] Clopidogrel [Plavix] 75 mg PO DAILY tab 08/10/16 [Rx] Fish Oil/Dha/Epa [Fish Oil 1,200 mg Fish Oil] 1 cap PO DAILY 10/02/16 [History] Furosemide [Lasix] 20 mg PO DAILY 10/02/16 [History] Warfarin [Coumadin] 2.5 mg PO MOWEFR 10/02/16 [History] Warfarin [Coumadin] 5 mg PO SUTUTHSA 10/02/16 [History] Ciprofloxacin HCl [Cipro] 250 mg PO BID tab 10/06/16 [Rx] Lisinopril [Zestril] 10 mg PO Q12H tab 10/06/16 [Rx] Tamsulosin [Flomax] 0.4 mg PO BID cap 10/06/16 [Rx] amLODIPine [Norvasc] 10 mg PO DAILY tab 10/06/16 [Rx] Follow up Appointment(s)/Referral(s): [facility], [NON-STAFF] - Piyush Vyas MD [Primary Care Provider] - 1-2 days
[2016-10-06 15:20] VITALS: BP 131/82; TEMP 97.1
[2016-10-06] MEDS ORDERED: CIPROFLOXACIN HCL 250 MG TAB PO SCH (21:00)
[2016-10-07] MEDS ORDERED: amLODIPine 10 MG TAB PO SCH (09:00)
== END 2016-10-06 15:27 | disposition home health service (06) | DRG 312 ==
LOC: EC 19:33 → 6SEL 22:20
PROVIDERS: ADMIT Internal Medicine; ATTEND Internal Medicine
DX: I95.1 Orthostatic hypotension (principal); I48.1 Persistent atrial fibrillation; I11.0 Hypertensive heart disease with heart failure; N39.0 Urinary tract infection, site not specified; I48.2 Chronic atrial fibrillation; E86.0 Dehydration; I50.30 Unspecified diastolic (congestive) heart failure; I48.0 Paroxysmal atrial fibrillation; I25.10 Atherosclerotic heart disease of native coronary artery without angina pectoris; E78.5 Hyperlipidemia, unspecified; S00.11XA Contusion of right eyelid and periocular area, initial encounter; I16.0 Hypertensive urgency; S60.222A Contusion of left hand, initial encounter; R04.0 Epistaxis; R40.2410 Glasgow coma scale score 13-15, unspecified time; I67.9 Cerebrovascular disease, unspecified; R53.1 Weakness; R29.6 Repeated falls; N40.0 Benign prostatic hyperplasia without lower urinary tract symptoms; Z95.5 Presence of coronary angioplasty implant and graft; Z79.899 Other long term (current) drug therapy; Z79.01 Long term (current) use of anticoagulants; Z80.6 Family history of leukemia; Z87.891 Personal history of nicotine dependence; Z85.820 Personal history of malignant melanoma of skin; Z86.79 Personal history of other diseases of the circulatory system; Z91.030 Bee allergy status; Z91.81 History of falling; Z51.81 Encounter for therapeutic drug level monitoring; Z90.49 Acquired absence of other specified parts of digestive tract; Z82.49 Family history of ischemic heart disease and other diseases of the circulatory system; Z79.02 Long term (current) use of antithrombotics/antiplatelets; W01.198A Fall on same level from slipping, tripping and stumbling with subsequent striking against other object, initial encounter; Y93.H2 Activity, gardening and landscaping; Y92.014 Private driveway to single-family (private) house as the place of occurrence of the external cause
CPT/HCPCS: 36415; 70450; 72125; 80053; 81001; 82550; 82553; 83735; 84484; 85025; 85610; 87077; 87086; 87186; 93005; 93306; 96365; 96375; 99291

== ENCOUNTER → 2018-08-11 | Outpatient (CLI) | payer MEDICARE ==
--- NOTE | 2018-08-11 14:18 | XR ---
EXAMINATION TYPE: XR chest 2V DATE OF EXAM: 08/11/2018 COMPARISON: Prior chest x-ray dated 08/10/2011 HISTORY: Pneumonia TECHNIQUE: Frontal and lateral views of the chest are obtained. FINDINGS: There is no focal air space opacity, pleural effusion, or pneumothorax seen. The cardiac silhouette size is stable, enlarged. The aorta is dense and ectatic and tortuous. The osseous struct ures are intact. Prominent lung volume could be indicative of underlying COPD. IMPRESSION: No acute cardiopulmonary process.
== END | disposition home or self-care (01) ==
LOC: RADXRMAIN 09:06
PROVIDERS: ATTEND Internal Medicine
DX: Z09 Encounter for follow-up examination after completed treatment for conditions other than malignant neoplasm (principal); Z87.01 Personal history of pneumonia (recurrent)
CPT/HCPCS: 71046

== ENCOUNTER 2018-10-19 03:47 | Inpatient (IN) | payer MEDICARE ==
[2018-10-19] MEDS ORDERED: ACETAMINOPHEN TAB 325 MG TAB PO STA (04:21)
--- NOTE | 2018-10-19 04:25 | ED ---
URI HPI - General Chief Complaint: Upper Respiratory Infection Stated Complaint: shaky Time Seen by Provider: 10/19/18 04:10 Source: patient Mode of arrival: ambulatory Limitations: no limitations - History of Present Illness Initial Comments: This patient is an 83-year-old man who presents with complaint that he believes he has developed pneumonia. The patient states he had similar symptoms in May and was told that he had pneumonia. He was doing well yesterday and then states that he was awakened just before 3 AM today by chills and a cough. He states the cough also has some sputum that is yellow but sometimes tinged with blood. Patient denies chest pain or dyspnea. MD Complaint: fever, cough Onset/Timin -: hour(s) Associated Symptoms: fever, chills, cough Treatments Prior to Arrival: none - Related Data Home Medications Medication Instructions Recorded Confirmed Finasteride [Proscar] 5 mg PO DAILY 11/29/14 10/19/18 Multivit-Min/FA/Lycopene/Lut 1 tab PO DAILY 11/29/14 10/19/18 [Centrum Silver Tablet] Atorvastatin Calcium [Lipitor] 40 mg PO HS 07/07/15 10/19/18 Metoprolol Succinate (ER) [Toprol 25 mg PO HS 07/07/15 10/19/18 XL] Fish Oil/Dha/Epa [Fish Oil 1,200 1 cap PO DAILY 10/02/16 10/19/18 mg Fish Oil] Furosemide [Lasix] 20 mg PO DAILY 10/02/16 10/19/18 Warfarin [Coumadin] 2.5 mg PO MOWEFR 10/02/16 10/19/18 Warfarin [Coumadin] 5 mg PO SUTUTHSA 10/02/16 10/19/18 Previous Rx's Medication Instructions Recorded Clopidogrel [Plavix] 75 mg PO DAILY tab 08/10/16 Ciprofloxacin HCl [Cipro] 250 mg PO BID tab 10/06/16 Lisinopril [Zestril] 10 mg PO Q12H tab 10/06/16 Tamsulosin [Flomax] 0.4 mg PO BID cap 10/06/16 amLODIPine [Norvasc] 10 mg PO DAILY tab 10/06/16 Allergies Allergy/AdvReac Type Severity Reaction Status Date / Time venom-honey bee Allergy Swelling Verified 10/02/16 23:25 [bee venom (honey bee)] Review of Systems ROS Statement: Those systems with pertinent positive or pertinent negative responses have been documented in the HPI. ROS Other: All systems not noted in ROS Statement are negative. Constitutional: Reports: fever, chills Respiratory: Reports: cough, hemoptysis. Denies: dyspnea, wheezes Cardiovascular: Denies: chest pain, palpitations, orthopnea, edema Gastrointestinal: Denies: abdominal pain, vomiting, diarrhea Genitourinary: Denies: dysuria, frequency, hematuria Musculoskeletal: Denies: back pain Skin: Denies: rash Neurological: Denies: headache, weakness, numbness Past Medical History Past Medical History: Atrial Fibrillation, Cancer, Hyperlipidemia, Hypertension, Prostate Disorder Additional Past Medical History / Comment(s): HX SKIN CA, SVT status post ablation. FAILED STRESS TEST IN [place] AND GOT 3 STENTS 04/2016, melanoma History of Any Multi-Drug Resistant Organisms: None Reported Past Surgical History: Appendectomy, Heart Catheterization, Heart Catheterization With Stent, Tonsillectomy Additional Past Surgical History / Comment(s): SKIN GRAFT TO FOREHEAD R/T SKIN CA Past Anesthesia/Blood Transfusion Reactions: No Reported Reaction Date of Last Stent Placement:: 04/2016 Past Psychological History: No Psychological Hx Reported Smoking Status: Former smoker Past Alcohol Use History: Rare Past Drug Use History: None Reported - Past Family History Mother Family Medical History: Cancer Father Family Medical History: Cancer Additional Family Medical History / Comment(s): LEUKEMIA General Exam Limitations: no limitations General appearance: alert, in no apparent distress Head exam: Present: atraumatic, normocephalic Eye exam: Present: normal appearance. Absent: scleral icterus, conjunctival injection Respiratory exam: Present: rales. Absent: wheezes, rhonchi, stridor Cardiovascular Exam: Present: normal rhythm, tachycardia, normal heart sounds. Absent: systolic murmur, diastolic murmur, rubs, gallop GI/Abdominal exam: Present: soft. Absent: distended, tenderness, guarding, rebound, rigid Extremities exam: Present: normal inspection, normal capillary refill. Absent: pedal edema, calf tenderness Back exam: Present: normal inspection. Absent: CVA tenderness (R), CVA tenderness (L) Neurological exam: Present: alert Skin exam: Present: warm, dry, intact, normal color. Absent: rash Course Vital Signs 10/19/18 10/19/18 03:50 05:35 Temperature 98.3 F 98.6 F Pulse Rate 136 H 110 H Respiratory 24 18 Rate Blood Pressure 163/103 101/61 O2 Sat by Pulse 90 L 93 L Oximetry Medical Decision Making - Lab Data Result diagrams: 10/19/18 04:38 10/19/18 04:38 Lab Results 10/19/18 10/19/18 10/19/18 Range/Units 04:20 04:38 04:38 WBC 13.1 H (3.8-10.6) k/uL RBC 4.94 (4.30-5.90) m/uL Hgb 15.3 (13.0-17.5) gm/dL Hct 46.1 (39.0-53.0) % MCV 93.3 (80.0-100.0) fL MCH 30.9 (25.0-35.0) pg MCHC 33.1 (31.0-37.0) g/dL RDW 15.5 (11.5-15.5) % Plt Count 172 (150-450) k/uL Neutrophils % 84 % Lymphocytes % 9 % Monocytes % 4 % Eosinophils % 3 % Basophils % 0 % Neutrophils # 11.0 H (1.3-7.7) k/uL Lymphocytes # 1.1 (1.0-4.8) k/uL Monocytes # 0.5 (0-1.0) k/uL Eosinophils # 0.4 (0-0.7) k/uL Basophils # 0.0 (0-0.2) k/uL PT (9.0-12.0) sec INR (<1.2) Potassium 3.9 (3.5-5.1) mmol/L Plasma Lactic Acid Topher (0.7-2.0) mmol/L Urine Color Yellow Urine Appearance Clear (Clear) Urine pH 5.5 (5.0-8.0) Ur Specific [place] 1.017 (1.001-1.035) Urine Protein 1+ H (Negative) Urine Glucose (UA) Negative (Negative) Urine Ketones Negative (Negative) Urine Blood Trace H (Negative) Urine Nitrite Negative (Negative) Urine Bilirubin Negative (Negative) Urine Urobilinogen <2.0 (<2.0) mg/dL Ur Leukocyte Esterase Negative (Negative) Urine RBC 4 (0-5) /hpf Urine WBC <1 (0-5) /hpf Urine Mucus Rare H (None) /hpf 10/19/18 10/19/18 Range/Units 04:38 04:38 WBC (3.8-10.6) k/uL RBC (4.30-5.90) m/uL Hgb (13.0-17.5) gm/dL Hct (39.0-53.0) % MCV (80.0-100.0) fL MCH (25.0-35.0) pg MCHC (31.0-37.0) g/dL RDW (11.5-15.5) % Plt Count (150-450) k/uL Neutrophils % % Lymphocytes % % Monocytes % % Eosinophils % % Basophils % % Neutrophils # (1.3-7.7) k/uL Lymphocytes # (1.0-4.8) k/uL Monocytes # (0-1.0) k/uL Eosinophils # (0-0.7) k/uL Basophils # (0-0.2) k/uL PT 15.4 H (9.0-12.0) sec INR 1.5 H (<1.2) Potassium (3.5-5.1) mmol/L Plasma Lactic Acid Topher 1.5 (0.7-2.0) mmol/L Urine Color Urine Appearance (Clear) Urine pH (5.0-8.0) Ur Specific [place] (1.001-1.035) Urine Protein (Negative) Urine Glucose (UA) (Negative) Urine Ketones (Negative) Urine Blood (Negative) Urine Nitrite (Negative) Urine Bilirubin (Negative) Urine Urobilinogen (<2.0) mg/dL Ur Leukocyte Esterase (Negative) Urine RBC (0-5) /hpf Urine WBC (0-5) /hpf Urine Mucus (None) /hpf - EKG Data -: EKG Interpreted by [facility] EKG shows normal: axis (Normal), intervals (Normal) Rate: tachycardia (Rate 110 bpm) Interpretation: nonspecific ST-T wave changes, other (Atrial fibrillation) Disposition Clinical Impression: Pneumonia Disposition: ADMITTED IP TO THIS HOSP Condition: Fair Referrals: Piyush Vyas MD [Primary Care Provider] - 1-2 days
[2018-10-19 04:50] LABS: Basophils % (A) 0 %; Eosinophils # (A) 0.4 k/uL (0-0.7); Eosinophils % (A) 3 %; HCT 46.1 % (39.0-53.0); HGB 15.3 gm/dL (13.0-17.5); Lymphocytes # (A) 1.1 k/uL (1.0-4.8); Lymphocytes % (A) 9 %; MCH 30.9 pg (25.0-35.0); MCHC 33.1 g/dL (31.0-37.0); MCV 93.3 fL (80.0-100.0); Monocytes # (A) 0.5 k/uL (0-1.0); Monocytes % (A) 4 %; Neutrophils % (A) 84 %; Platelet Count 172 k/uL (150-450); RBC 4.94 m/uL (4.30-5.90); RDW 15.5 % (11.5-15.5); WBC 13.1 k/uL (3.8-10.6)
[2018-10-19 04:55] LABS: Appearance,Urine Clear (Clear); Bilirubin,Urine Negative (Negative); Blood,Urine Trace (Negative); Color,Urine Yellow; Glucose,Urine (UA) Negative (Negative); Ketones,Urine Negative (Negative); Leukocyte Esterase,Urine Negative (Negative); Mucus,Urine Rare /hpf; Nitrite,Urine Negative (Negative); PH, Urine 5.5 (5.0-8.0); Protein,Urine 1+ (Negative); RBC,Urine 4 /hpf (0-5); Specific Gravity,Urine 1.017 (1.001-1.035); Urobilinogen,Urine <2.0 mg/dL (<2.0)
[2018-10-19 04:55] LABS: INR 1.5 (<1.2); Prothrombin Time 15.4 sec (9.0-12.0)
[2018-10-19] MEDS: SODIUM CHLORIDE 0.9% 500 ML 500 ML IV SCH ×2 (04:57→05:31)
[2018-10-19 05:08] LABS: Potassium 3.9 mmol/L (3.5-5.1)
[2018-10-19 05:10] LABS: Albumin 4.1 g/dL (3.5-5.0); Calcium 9.1 mg/dL (8.4-10.2); Total Bilirubin 0.5 mg/dL (0.2-1.3); Total Protein 6.6 g/dL (6.3-8.2)
[2018-10-19] MEDS ORDERED: PNEUMONIA PROTOCOL UTILIZED 1 EACH MISC PO PRN (05:11)
[2018-10-19] MEDS ORDERED: AZITHROMYCIN 500 MG TAB PO STA (05:11)
[2018-10-19] MEDS ORDERED: SODIUM CHLORIDE 0.9% 1,000 ML IV SCH (05:15)
--- NOTE | 2018-10-19 05:29 | XR ---
EXAM: XR Chest, 2 Views CLINICAL HISTORY: Fever. TECHNIQUE: Frontal and lateral views of the chest. COMPARISON: 08/11/2018. FINDINGS: Lungs: Patchy airspace disease in the right mid to lower lung zones most suggestive of probable pneumonia, particularly given the patient's history. Pleural space: Unremarkable. No pneumothorax. Heart: There is cardiomegaly. Mediastinum: Unremarkable. Bones/joints: Short-term follow-up and reimaging to document resolution are advised. Osteopenia. Vasculature: Atherosclerotic disease of the aortic knob. IMPRESSION: Cardiomegaly. Findings most suggestive of pneumonia within the right mid lower lung zones. Short-term imaging is advised to document resolution. If there is concern for other etiologies, CT imaging of the chest could be performed for follow-up.
[2018-10-19] MEDS ORDERED: CIPROFLOXACIN HCL 250 MG TAB PO SCH ×2 (09:00)
[2018-10-19] MEDS ORDERED: FUROSEMIDE 20 MG TAB PO SCH (09:00)
[2018-10-19] MEDS ORDERED: CLOPIDOGREL 75 MG TAB PO SCH (09:00)
[2018-10-19] MEDS: TAMSULOSIN 0.4 MG CAP.ER.24H PO SCH ×2 (09:01→20:13)
[2018-10-19] MEDS: amLODIPine 10 MG TAB PO SCH (09:01)
[2018-10-19] MEDS: MULTIVITAMINS, THERA 1 EACH TAB PO SCH (09:01)
[2018-10-19] MEDS: LISINOPRIL 10 MG TAB PO SCH ×2 (09:01→20:13)
[2018-10-19] MEDS: FINASTERIDE 5 MG TAB PO SCH (09:04)
[2018-10-19] MEDS ORDERED: PNEUMOCOCCAL VACC-PNEUMOVAX 23 25 MCG/0.5 ML VIAL IM ONE (09:26)
--- NOTE | 2018-10-19 12:00 | P.HPIM ---
History of Present Illness H&P Date: 10/19/18 Chief Complaint: Cough with chills This is a 83-year-old male with a known history of chronic atrial fibrillation anticoagulated with Coumadin, hyperlipidemia, hypertension, cardiology disease with previous cardiac stents, SVT with previous ablation. Patient presents to the ER after waking up around 3:00 this morning with significant cough and chills. He's reports that he's had pneumonia 4 times the past and this is how it starts. Prior to that he had been in good health and had gone out to eat even the night before. Patient had chest x-ray completed in the ER showing findings that most suggestive of pneumonia within the right mid lower lung zones. And cardiomegaly. Patient was started on Rocephin and azithromycin. White count elevated at 13.1. Patient did have evidence of tachycardia with a heart rate as high as 136. EKG showing atrial fibrillation with a heart rate of 110. Patient denies any chest pain or shortness of breath. Denies a nausea or vomiting. Denies any burning with urination. He is reporting some constipation 2 days since his last bowel movement. He also reports coughing up small chunks of blood and. Plavix and Coumadin were held today. Patient's cardiac stents were placed between 2-3 years ago per patient. Patient is also slightly dehydrated with a creatinine of 1.28 Review of Systems Please refer to HPI otherwise unremarkable Past Medical History Past Medical History: Atrial Fibrillation, Coronary Artery Disease (CAD), Cancer, Heart Failure, Hyperlipidemia, Hypertension, Prostate Disorder, Supraventricular Tachycardia (SVT) Additional Past Medical History / Comment(s): Pneumonias, pericardial effusion, hiatal hernia, pancreatitis, liver hemangioma, melanoma removed from forehead and abdomin, SVT with ablation, BPH, History of Any Multi-Drug Resistant Organisms: None Reported Past Surgical History: Appendectomy, Heart Catheterization, Heart Catheterization With Stent, Tonsillectomy Additional Past Surgical History / Comment(s): SKIN GRAFT TO FOREHEAD R/T SKIN CA, skin cancer removed from abdomin, R cataract removed, colonoscopy Past Anesthesia/Blood Transfusion Reactions: No Reported Reaction Date of Last Stent Placement:: 04/2016 Smoking Status: Former smoker - Past Family History Mother Family Medical History: Cancer, Respiratory Disorder Additional Family Medical History / Comment(s): Breast cancer and TB. Father Family Medical History: Cancer Additional Family Medical History / Comment(s): LEUKEMIA Medications and Allergies Home Medications Medication Instructions Recorded Confirmed Type Finasteride [Proscar] 5 mg PO DAILY 11/29/14 10/19/18 History Multivit-Min/FA/Lycopene/Lut 1 tab PO DAILY 11/29/14 10/19/18 History [Centrum Silver Tablet] Atorvastatin Calcium [Lipitor] 40 mg PO HS 07/07/15 10/19/18 History Metoprolol Succinate (ER) [Toprol 25 mg PO HS 07/07/15 10/19/18 History XL] Furosemide [Lasix] 20 mg PO DAILY 10/02/16 10/19/18 History Warfarin [Coumadin] 2.5 mg PO MOWEFR 10/02/16 10/19/18 History Warfarin [Coumadin] 5 mg PO SUTUTHSA 10/02/16 10/19/18 History Lisinopril [Zestril] 10 mg PO Q12H tab 10/06/16 10/19/18 Rx Tamsulosin [Flomax] 0.4 mg PO BID cap 10/06/16 10/19/18 Rx amLODIPine [Norvasc] 10 mg PO DAILY tab 10/06/16 10/19/18 Rx Aspirin EC [Ecotrin Low Dose] 81 mg PO HS 10/19/18 10/19/18 History Ezetimibe [Zetia] 10 mg PO DAILY 10/19/18 10/19/18 History Allergies Allergy/AdvReac Type Severity Reaction Status Date / Time venom-honey bee Allergy Swelling Verified 10/19/18 08:04 [bee venom (honey bee)] Physical Exam Vitals: Vital Signs Temp Pulse Pulse Resp BP BP Pulse Ox 10/19/18 07:30 94 L 10/19/18 06:52 98.1 F 104 H 16 142/87 89 L 10/19/18 05:35 98.6 F 110 H 18 101/61 93 L 10/19/18 03:50 98.3 F 136 H 24 163/103 90 L Intake and Output 10/18/18 10/19/18 10/19/18 22:59 06:59 14:59 Other: # Voids 2 Weight 95.254 kg Head normocephalic Neck supple Lungs diminished bilaterally Heart regular rate and rhythm S1-S2, no rub or gallop Abdomen is soft nontender nondistended positive bowel sounds no hepatosplenomegaly Extremities no edema Neuro alert and orientated to 3 Results CBC & Chem 7: 10/19/18 04:38 10/19/18 04:38 Labs: Abnormal Lab Results - Last 24 Hours (Table) 10/19/18 10/19/18 10/19/18 Range/Units 04:20 04:38 04:38 WBC 13.1 H (3.8-10.6) k/uL Neutrophils # 11.0 H (1.3-7.7) k/uL PT (9.0-12.0) sec INR (<1.2) BUN 34 H (9-20) mg/dL Creatinine 1.28 H (0.66-1.25) mg/dL Glucose 143 H (74-99) mg/dL Urine Protein 1+ H (Negative) Urine Blood Trace H (Negative) Urine Mucus Rare H (None) /hpf 10/19/18 Range/Units 04:38 WBC (3.8-10.6) k/uL Neutrophils # (1.3-7.7) k/uL PT 15.4 H (9.0-12.0) sec INR 1.5 H (<1.2) BUN (9-20) mg/dL Creatinine (0.66-1.25) mg/dL Glucose (74-99) mg/dL Urine Protein (Negative) Urine Blood (Negative) Urine Mucus (None) /hpf Thrombosis Risk Factor Assmnt - Choose All That Apply Any of the Below Risk Factors Present?: Yes Each Factor Represents 1 point: Obesity (BMI >25), Serious lung disease incl. pneumonia (< 1month) Other Risk Factors: Yes Each Risk Factor Represents 2 Points: Malignancy Each Risk Factor Represents 3 Points: Age 75 years or older Other congenital or acquired thrombophilia - If yes, enter type in comment: No Thrombosis Risk Factor Assessment Total Risk Factor Score: 7 Thrombosis Risk Factor Assessment Level: High Risk Assessment and Plan Assessment: 1. Right sided pneumonia with cough and chills. Patient started on Rocephin and azithromycin in the ER. Check sputum culture. Consult pulmonary service 2. Sepsis present on admission secondary to pneumonia. Check blood cultures. Continue antibiotics. 3. Acute kidney injury: Creatinine 1.28. Likely due to patient's sepsis and dehydration. We'll start normal saline at 50 mL an hour. Hold Lasix 4. Acute hypoxic respiratory failure secondary to pneumonia. Oxygen saturation did drop to 88% patient is now on 2 L satting at 94% 6. History of chronic persistent atrial fibrillation anticoagulated with Coumadin. INR is subtherapeutic at 1.5. EKG showing atrial fibrillation with rapid ventricular response 7. History of chronic diastolic CHF currently compensated. Lasix on hold due to acute kidney injury 8. History of essential hypertension: Blood pressure stable continue current medications 9. Hyperlipidemia continue Lipitor 10. History of prostate disorder continue Flomax 11. History of SVT requiring cardiac ablation 12. History of coronary artery disease with cardiac stents placed about 3 years ago per patient 13. Hemoptysis likely secondary to patient's pneumonia and cough. Hold Coumadin and Plavix. Consult pulmonary service 14. Constipation add Colace GI prophylaxis Protonix and DVT prophylaxis SCDs Time with Patient: Greater than 30 (Greater than 50% of the total time spent in counseling and coordination of care.I performed an examination of the patient and discussed their management with the physician Lead Teacher. I have reviewed the Physician Lead Teacher's notes and agree with the documented findings and plan of care)
[2018-10-19] MEDS: SODIUM CHLORIDE 0.9% 1,000 ML IV SCH (13:00)
[2018-10-19] MEDS: DOCUSATE 100 MG CAP PO SCH ×2 (15:00→20:15)
[2018-10-19] MEDS ORDERED: WARFARIN 5 MG TAB PO ONE (18:00)
[2018-10-19] MEDS ORDERED: WARFARIN 7.5 MG TAB PO ONE (18:00)
[2018-10-19] MEDS ORDERED: WARFARIN 5 MG TAB PO SCH (18:00)
[2018-10-19] MEDS: ATORVASTATIN 40 MG TAB PO SCH (20:13)
[2018-10-19] MEDS ORDERED: METOPROLOL SUCCINATE (ER) 25 MG TAB.ER.24H PO SCH (21:00)
[2018-10-20] MEDS: AZITHROMYCIN 500 MG TAB PO SCH (04:52)
[2018-10-20] MEDS: LISINOPRIL 10 MG TAB PO SCH ×2 (08:55→20:37)
[2018-10-20] MEDS: DOCUSATE 100 MG CAP PO SCH ×2 (08:55→20:37)
[2018-10-20] MEDS: FINASTERIDE 5 MG TAB PO SCH (08:55)
[2018-10-20] MEDS: TAMSULOSIN 0.4 MG CAP.ER.24H PO SCH ×2 (08:55→20:37)
[2018-10-20] MEDS: amLODIPine 10 MG TAB PO SCH (08:55)
[2018-10-20] MEDS: MULTIVITAMINS, THERA 1 EACH TAB PO SCH (08:55)
[2018-10-20] MEDS: SODIUM CHLORIDE 0.9% 1,000 ML IV SCH (09:06)
--- NOTE | 2018-10-20 09:11 | XR ---
EXAMINATION TYPE: XR chest 2V DATE OF EXAM: 10/20/2018 COMPARISON: 10/19/2018 HISTORY: 83-year-old male pneumonia TECHNIQUE: Dental and lateral views FINDINGS: Heart upper limits of normal in size. Continued extensive focal right mid and lower lung opacities. I ncreased patchy posterior basilar opacity. IMPRESSION: Extensive focal right mid and lower lung airspace disease persists. Increased/new airspace disease po sterior left base.
[2018-10-20 10:12] LABS: INR 1.6 (<1.2); Prothrombin Time 16.2 sec (9.0-12.0)
[2018-10-20 10:13] LABS: Basophils % (A) 0 %; Eosinophils # (A) 0.2 k/uL (0-0.7); Eosinophils % (A) 2 %; HCT 40.5 % (39.0-53.0); HGB 12.8 gm/dL (13.0-17.5); Lymphocytes # (A) 0.9 k/uL (1.0-4.8); Lymphocytes % (A) 11 %; MCH 29.9 pg (25.0-35.0); MCHC 31.7 g/dL (31.0-37.0); MCV 94.3 fL (80.0-100.0); Mean Platelet Volume 8.2; Monocytes # (A) 0.4 k/uL (0-1.0); Monocytes % (A) 5 %; Neutrophils # (A) 6.5 k/uL (1.3-7.7); Neutrophils % (A) 82 %; Platelet Count 154 k/uL (150-450); RDW 15.7 % (11.5-15.5)
[2018-10-20 10:16] LABS: Albumin 3.3 g/dL (3.5-5.0); Calcium 8.5 mg/dL (8.4-10.2); Total Bilirubin 0.8 mg/dL (0.2-1.3); Total Protein 5.6 g/dL (6.3-8.2)
--- NOTE | 2018-10-20 10:54 | P.CNPUL ---
History of Present Illness Consult date: 10/19/18 Reason for consult: pneumonia History of present illness: 83-year-old female patient, known history of coronary artery disease with previous coronary stenting, known history of a small pericardial effusion, history of chronic atrial fibrillation, along with hypertension and hyperlipidemia and previous history of SVT that has required cardiac ablation. The patient came into the ED 3 AM with cough and chills and she was found to be quite tachycardic with a heart rate in the 1:30 range. She was in atrial fibrillation with rapid ventricular response. She was denying any significant shortness of breath. She was reporting cough with mucus and small chunks of blood. Note that the patient has been on a combination of warfarin and Plavix o n outpatient basis and her INR at the time of admission was 1.5 with a platelet count of 172. Chest X and showed a as consolidation of the right lung involving the right middle lobe and the right lower lobe area consistent with underlying pneumonia. No reported aspiration pain no nausea. No vomiting. She has history of constipation. She was started on accommodation Rocephin and Zithromax and she was admitted to the medical floor. Her last chest x-ray from 08/11/2018 showed no acute cardio pulmonary process. Review of Systems Constitutional: Reports fatigue, Reports poor appetite, Reports weakness Eyes: denies as per HPI, denies blurred vision, denies bulging eye, denies decreased vision, denies diplopia, denies discharge, denies dry eye, denies irritation, denies itching, denies pain, denies photophobia, denies loss of peripheral vision, denies loss of vision, denies tunnel vision/blind spots Ears: deny: decreased hearing, ear discharge, earache, tinnitus Ears, nose, mouth and throat: Denies headache, Denies sore throat Breasts: absent: as per HPI, gynecomastia Cardiovascular: Reports dyspnea on exertion Respiratory: Reports cough, Reports dyspnea, Reports hemoptysis Gastrointestinal: Denies abdominal pain, Denies diarrhea, Denies nausea, Denies vomiting Genitourinary: Reports as per HPI Musculoskeletal: Reports as per HPI Musculoskeletal: absent: ankle pain, ankle stiffness, ankle swelling, as per HPI, elbow pain, elbow stiffness, elbow swelling, foot pain, foot stiffness, foot swelling, hand pain, hand stiffness, hand swelling, hip pain, hip stiffness, hip swelling, knee pain, knee stiffness, knee swelling, shoulder pain, shoulder stiffness, shoulder swelling, wrist pain, wrist stiffness, wrist swelling Integumentary: Reports as per HPI Neurological: Reports as per HPI Psychiatric: Reports as per HPI Endocrine: Reports as per HPI Hematologic/Lymphatic: Reports as per HPI Allergic/Immunologic: Reports as per HPI Past Medical History Past Medical History: Atrial Fibrillation, Coronary Artery Disease (CAD), Cancer, Hyperlipidemia, Hypertension, Prostate Disorder, Supraventricular Tachycardia (SVT) Additional Past Medical History / Comment(s): Coronary artery disease with previous coronary stenting, history of SVT with previous cardiac ablation, histo ry of chronic atrial fibrillation, hypertension, hyperlipidemia, BPH, small pericardial effusion, hiatal hernia, hepatic hemangioma, 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, previous history of pancreatitis, hiatal hernia History of Any Multi-Drug Resistant Organisms: None Reported Past Surgical History: Appendectomy, Heart Catheterization, Heart Catheterization With Stent, Tonsillectomy Additional Past Surgical History / Comment(s): SKIN GRAFT TO FOREHEAD R/T SKIN CA, skin cancer removed from abdomin, R cataract removed, colonoscopy Past Anesthesia/Blood Transfusion Reactions: No Reported Reaction Date of Last Stent Placement:: 04/2016 Smoking Status: Former smoker - Past Family History Mother Family Medical History: Cancer, Respiratory Disorder Additional Family Medical History / Comment(s): Breast cancer and TB. Father Family Medical History: Cancer Additional Family Medical History / Comment(s): LEUKEMIA Medications and Allergies Home Medications Medication Instructions Recorded Confirmed Type Finasteride [Proscar] 5 mg PO DAILY 11/29/14 10/19/18 History Multivit-Min/FA/Lycopene/Lut 1 tab PO DAILY 11/29/14 10/19/18 History [Centrum Silver Tablet] Atorvastatin Calcium [Lipitor] 40 mg PO HS 07/07/15 10/19/18 History Metoprolol Succinate (ER) [Toprol 25 mg PO HS 07/07/15 10/19/18 History XL] Furosemide [Lasix] 20 mg PO DAILY 10/02/16 10/19/18 History Warfarin [Coumadin] 2.5 mg PO MOWEFR 10/02/16 10/19/18 History Warfarin [Coumadin] 5 mg PO SUTUTHSA 10/02/16 10/19/18 History Lisinopril [Zestril] 10 mg PO Q12H tab 10/06/16 10/19/18 Rx Tamsulosin [Flomax] 0.4 mg PO BID cap 10/06/16 10/19/18 Rx amLODIPine [Norvasc] 10 mg PO DAILY tab 10/06/16 10/19/18 Rx Aspirin EC [Ecotrin Low Dose] 81 mg PO HS 10/19/18 10/19/18 History Ezetimibe [Zetia] 10 mg PO DAILY 10/19/18 10/19/18 History Allergies Allergy/AdvReac Type Severity Reaction Status Date / Time venom-honey bee Allergy Swelling Verified 10/19/18 08:04 [bee venom (honey bee)] Physical Exam Vitals: Vital Signs Temp Pulse Pulse Resp BP BP Pulse Ox 10/19/18 12:06 97.8 F 92 20 137/81 92 L 10/19/18 07:30 94 L 10/19/18 06:52 98.1 F 104 H 16 142/87 89 L 10/19/18 05:35 98.6 F 110 H 18 101/61 93 L 10/19/18 03:50 98.3 F 136 H 24 163/103 90 L Intake and Output 10/19/18 10/19/18 10/19/18 06:59 14:59 22:59 Other: # Voids 3 Weight 95.254 kg Gen. appearance, comfortable likely distress Head exam was generally normal. There was no scleral icterus or corneal arcus. Mucous membranes were moist. Neck was supple and without jugular venous distension, thyromegaly, or carotid bruits. Carotids were easily palpable bilaterally. There was no adenopathy. Lungs sounds are diminished bilaterally along with some crackles in the right lower lobe. No wheezes and no rhonchi. Heart sounds are irregular S1-S2 consistent with atrial fibrillation. No significant murmurs appreciated.Cardiac exam revealed the PMI to be normally situated and sized. No extrasystoles were noted during several minutes of auscultation. The first and second heart sounds were irregular and physiologic splitting of the second heart sound was noted. There were no murmurs, rubs, clicks, or gallops. Abdominal exam revealed normal bowel sounds. The abdomen was soft, non-tender, and without masses, organomegaly, or appreciable enlargement of the abdominal aorta. Examination of the extremities revealed easily palpable radial, femoral and pedal pulses. There was no cyanosis, clubbing or edema. Examination of the skin revealed no evidence of significant rashes, suspicious appearing nevi or other concerning lesions. Neurologically the patient is awake and alert and there is no focal neurological deficits. Results - Laboratory Findings CBC and BMP: 10/19/18 04:38 10/19/18 04:38 PT/INR, D-dimer PT 15.4 sec (9.0-12.0) H 10/19/18 04:38 INR 1.5 (<1.2) H 10/19/18 04:38 Abnormal lab findings: Abnormal Labs 10/19/18 10/19/18 10/19/18 04:20 04:38 04:38 WBC 13.1 H Neutrophils # 11.0 H PT INR BUN 34 H Creatinine 1.28 H Glucose 143 H Urine Protein 1+ H Urine Blood Trace H Urine Mucus Rare H 10/19/18 04:38 WBC Neutrophils # PT 15.4 H INR 1.5 H BUN Creatinine Glucose Urine Protein Urine Blood Urine Mucus - Diagnostic Findings Chest x-ray: image reviewed Assessment and Plan Plan: 1 acute right-sided pneumonia, likely bipolar involving the right middle and right lower lobe. Currently on a combination of Rocephin and Zithromax. Present with tachycardia some increased shortness of breath without any significant hypoxemia. The patient is hemodynamically stable at this point in time, no hypotension, no altered mentation 2 acute kidney injury, active secondary to above 3 acute hypoxic respiratory failure secondary to above 4 chronic atrial fibrillation with rapid ventricular response at time of admission, the heart rate response is improving and the patient's PT/INR is subtherapeutic at this point in time with an INR of 1.5. The echocardiogram from 10/04/2016 showed a preserved LV function without any systolic or diastolic heart failure. 5 hypertension 6 coronary artery disease with previous coronary stenting 7 history of SVT with previous ablation 8 BPH 9 small pericardial effusion noted on previous CAT scans of the abdomen and ech ocardiogram from 2017 10 mild leukocytosis 11 mild hemoptysis secondary to above Plan Sputum Gram stain and culture. Blood culture. Continue same antibiotic coverage. The attachment of atrial fibrillation per medicine. The patient is on metoprolol and warfarin. PT/INR is going to the monitors. Resume outpatient medications. We'll follow-up chest x-ray. We'll give IV fluids. Monitor renal function. Insipidus improvement in creatinine. Currently receiving normal saline today to 50 mL an hour. We'll continue to follow
--- NOTE | 2018-10-20 11:02 | P.PN ---
Subjective Progress Note Date: 10/20/18 Principal diagnosis: Acute right-sided pneumonia, likely bilobar, involving the right middle and right lower lobe 83-year-old female patient, known history of coronary artery disease with previous coronary stenting, known history of a small pericardial effusion, history of chronic atrial fibrillation, along with hypertension and hyperlipidemia and previous history of SVT that has required cardiac ablation. The patient came into the ED 3 AM with cough and chills and she was found to be quite tachycardic with a heart rate in the 1:30 range. She was in atrial fibrillation with rapid ventricular response. She was denying any significant shortness of breath. She was reporting cough with mucus and small chunks of blood. Note that the patient has been on a combination of warfarin and Plavix on outpatient basis and her INR at the time of admission was 1.5 with a platelet count of 172. Chest X and showed a as consolidation of the right lung involving the right middle lobe and the right lower lobe area consistent with underlying pneumonia. No reported aspiration pain no nausea. No vomiting. She has history of constipation. She was started on accommodation Rocephin and Zithromax and she was admitted to the medical floor. Her last chest x-ray from 08/11/2018 showed no acute cardio pulmonary process. On 10/20/2018 patient seen in follow-up on medical oncology floor, she is awake and alert, he is in no acute distress, denies any dyspnea, room air pulse ox is 91-93%, denies any chest pain, still bringing up some sputum with small amount of blood in it, no significant hemoptysis, he is afebrile, she does get short of breath with exertion, but otherwise she looks pretty comfortable at rest. Lung sounds reveal some fine crackles in the right lung, in the upper and lower lobes. No significant rhonchi, wheezing, today's labs show improvement in patient's leukocytosis, white blood cell count is 8.0, hemoglobin is 12.8, INR today is 1.6, electrolytes were within normal limits, BUN is 24 creatinine is 1.17. Urinalysis was negative for any sign of infection. Blood culture is negative, patient is on a combination of Zithromax and Rocephin. Objective - Vital Signs Vital signs: Vital Signs Temp 98.2 F 10/20/18 04:34 Pulse 98 10/20/18 08:53 Resp 16 10/20/18 04:34 BP 135/81 10/20/18 08:53 Pulse Ox 91 L 10/20/18 08:53 Intake & Output 10/19/18 10/20/18 10/20/18 18:59 06:59 18:59 Intake Total 1060 Balance 1060 Intake: Intake, IV Titration 400 Amount Sodium Chloride 0.9% 1, 400 000 ml @ 50 mls/hr IV . Q20H ANTONIO Rx#:[id number] Oral 660 Other: # Voids 3 1 - Exam GENERAL EXAM: Alert, very pleasant, 83-year-old white male, on room air, with a pulse ox of 91-93% comfortable in no apparent distress. HEAD: Normocephalic/atraumatic. EYES: Normal reaction of pupils, equal size. Conjunctiva pink, sclera white. NOSE: Clear with pink turbinates. THROAT: No erythema or exudates. NECK: No masses, no JVD, no thyroid enlargement, no adenopathy. CHEST: No chest wall deformity. Symmetrical expansion. LUNGS: Equal air entry with fine crackles over right upper and right lower lobes, but no wheeze, rhonchi or dullness. CVS: Regular rate and rhythm, normal S1 and S2, no gallops, no murmurs, no rubs ABDOMEN: Soft, nontender. No hepatosplenomegaly, normal bowel sounds, no guarding or rigidity. EXTREMITIES: No clubbing, no edema, no cyanosis, 2+ pulses and upper and lower extremities. MUSCULOSKELETAL: Muscle strength and tone normal. SPINE: No scoliosis or deformity SKIN: No rashes CENTRAL NERVOUS SYSTEM: Alert and oriented -3. No focal deficits, tone is normal in all 4 extremities. PSYCHIATRIC: Alert and oriented -3. Appropriate affect. Intact judgment and insight. - Labs CBC & Chem 7: 10/20/18 09:27 10/20/18 09:27 Labs: Abnormal Lab Results - Last 24 Hours (Table) 10/20/18 10/20/18 10/20/18 Range/Units 09:27 09: 09: Hgb 12.8 L (13.0-17.5) gm/dL RDW 15.7 H (11.5-15.5) % Lymphocytes # 0.9 L (1.0-4.8) k/uL PT 16.2 H (9.0-12.0) sec INR 1.6 H (<1.2) BUN 24 H (9-20) mg/dL Glucose 160 H (74-99) mg/dL Total Protein 5.6 L (6.3-8.2) g/dL Albumin 3.3 L (3.5-5.0) g/dL Microbiology - Last 24 Hours (Table) 10/19/18 04:48 Blood Culture - Preliminary Blood No Growth after 24 hours Assessment and Plan Plan: Assessment: 1 acute right-sided pneumonia, likely bipolar involving the right middle and right lower lobe. Currently on a combination of Rocephin and Zithromax. Present with tachycardia some increased shortness of breath without any significant hypoxemia. The patient is hemodynamically stable at this point in time, no hypotension, no altered mentation 2 acute kidney injury, active secondary to above 3 acute hypoxic respiratory failure secondary to above 4 chronic atrial fibrillation with rapid ventricular response at time of admission, the heart rate response is improving and the patient's PT/INR is subtherapeutic at this point in time with an INR of 1.5. The echocardiogram from 10/04/2016 showed a preserved LV function without any systolic or diastolic heart failure. 5 hypertension 6 coronary artery disease with previous coronary stenting 7 history of SVT with previous ablation 8 BPH 9 small pericardial effusion noted on previous CAT scans of the abdomen and echocardiogram from 2017 10 mild leukocytosis 11 mild hemoptysis secondary to above Plan: Obtain a sputum culture, blood culture showed no growth, patient is afebrile, he looks quite comfortable at rest, dyspnea on exertion, otherwise patient feels pretty well, he is hoping to be able to be discharged out of the hospital before Tuesday for his hair appointment. Denies any chest pain, small amount of blood in the sputum, no significant hemoptysis, increase activity as tolerated, and continue with current antibiotics, nebulized bronchodilators, will follow I performed a history & physical examination of the patient and discussed their management with my nurse practitioner, Char Black. I reviewed the nurse pr actitioner's note and agree with the documented findings and plan of care. Lung sounds are positive for a few rales in the right upper and lower lobe. The findings and the impression was discussed with the patient. I attest to the documentation by the nurse practitioner. Time with Patient: Less than 30
--- NOTE | 2018-10-20 11:27 | P.PN ---
Subjective Progress Note Date: 10/20/18 This is a 83-year-old male with a known history of chronic atrial fibrillation anticoagulated with Coumadin, hyperlipidemia, hypertension, cardiology disease with previous cardiac stents, SVT with previous ablation. Patient presents to the ER after waking up around 3:00 this morning with significant cough and chills. He's reports that he's had pneumonia 4 times the past and this is how it starts. Prior to that he had been in good health and had gone out to eat even the night before. Patient had chest x-ray completed in the ER showing findings that most suggestive of pneumonia within the right mid lower lung zones. And cardiomegaly. Patient was started on Rocephin and azithromycin. White count elevated at 13.1. Patient did have evidence of tachycardia with a heart rate as high as 136. EKG showing atrial fibrillation with a heart rate of 110. Patient denies any chest pain or shortness of breath. Denies a nausea or vomiting. Denies any burning with urination. He is reporting some constipation 2 days since his last bowel movement. He also reports coughing up small chunks of blood. Plavix and Coumadin were held today. Patient's cardiac stents were placed between 2-3 years ago per patient. Patient is also slightly dehydrated with a creatinine of 1.28 10/20/2018 patient lying in bed comfortably. Reports that he is feeling better. He denies any chest pain or shortness of breath. Reports improvement in his cough. Patient's sputum is still has some stringy blood noted in it. Coumadin was restarted yesterday. Plavix was held. Hemoglobin did drop slightly from 15.3-12.8. Patient is followed by both pulmonary and cardiology services. Heart rate is improved. Kidney functions improved creatinine sound 1.17. On telemetry he remains in A. fib heart rate is controlled. WBC has normalized. Patient denies any nausea or vomiting bowel movement changes or urinary s ymptoms. Patient is on room air satting at 91%. Chest x-ray shows extensive focal right mid and lower lungs air space disease persists. Increased/new airspace disease posterior left base. Objective - Vital Signs Vital signs: Vital Signs Temp 98.2 F 10/20/18 04:34 Pulse 98 10/20/18 08:53 Resp 16 10/20/18 04:34 BP 135/81 10/20/18 08:53 Pulse Ox 91 L 10/20/18 08:53 Intake & Output 10/19/18 10/20/18 10/20/18 18:59 06:59 18:59 Intake Total 1060 Balance 1060 Intake: Intake, IV Titration 400 Amount Sodium Chloride 0.9% 1, 400 000 ml @ 50 mls/hr IV . Q20H ANTONIO Rx#:[id number] Oral 660 Other: # Voids 3 1 - Exam Head normocephalic Neck supple Lungs clear to auscultation bilaterally no wheezing or crackles Heart regular rate and rhythm S1-S2, no rub or gallop Abdomen is soft nontender nondistended positive bowel sounds no hepatosplenomegaly Extremities no edema Neuro alert and orientated to 3 - Labs CBC & Chem 7: 10/20/18 09:27 10/20/18 09:27 Labs: Abnormal Lab Results - Last 24 Hours (Table) 10/20/18 10/20/18 10/20/18 Range/Units 09: 09: 09:27 Hgb 12.8 L (13.0-17.5) gm/dL RDW 15.7 H (11.5-15.5) % Lymphocytes # 0.9 L (1.0-4.8) k/uL PT 16.2 H (9.0-12.0) sec INR 1.6 H (<1.2) BUN 24 H (9-20) mg/dL Glucose 160 H (74-99) mg/dL Total Protein 5.6 L (6.3-8.2) g/dL Albumin 3.3 L (3.5-5.0) g/dL Microbiology - Last 24 Hours (Table) 10/19/18 04:48 Blood Culture - Preliminary Blood No Growth after 24 hours Assessment and Plan Assessment: 1. Right sided pneumonia with cough and chills. Chest x-ray now showing evidence of airspace disease also on the left. Currently on Rocephin and azithromycin. Check sputum culture. Pulmonary following. No evidence of any significant hemoptysis. Patient has had stringy blood noted in sputum. Seen by pulmonary. 2. Sepsis present on admission secondary to pneumonia. Blood cultures negative. Continue antibiotics. 3. Acute kidney injury: Resolved with IV fluids. Creatinine 1.28 down to 1.17. Likely due to patient's sepsis and dehydration. 4. Acute hypoxic respiratory failure secondary to pneumonia. Oxygen saturation did drop to 88% patient is now on 2 L satting at 94%. She by pulmonary service. Patient is now on room air satting at 91% 6. History of chronic persistent atrial fibrillation anticoagulated with Coumadin. Patient did have episode of atrial fibrillation with RVR in ER. He remains on telemetry monitoring which shows A. fib with controlled rate. EKG showing atrial fibrillation with rapid ventricular response 7. History of chronic diastolic CHF currently compensated. 8. History of essential hypertension: Blood pressure stable continue current medications 9. Hyperlipidemia continue Lipitor 10. History of prostate disorder continue Flomax 11. History of SVT requiring cardiac ablation 12. History of coronary artery disease with cardiac stents placed about 3 years ago per patient 14. Constipation add Colace GI prophylaxis Protonix and DVT prophylaxis Coumadin Plan Hep-Lock IV fluids Resume home dose of lasix 20mg daily starting tomorrow Resume Plavix 75 mg daily Will give Coumadin 5 mg tonight check PT/INR in a.m. Consult physical therapy I performed an examination of the patient and discussed their management with the physician Fuel Conversion Technician. I have reviewed the Physician Fuel Conversion Technician's notes and agree with the documented findings and plan of care
--- NOTE | 2018-10-20 13:12 | P.CRDCN ---
History of Present Illness History of present illness: This is a pleasant 83-year old male past medical history significant for coronary artery disease s/p stent placement, persistent atrial fibrillation on [employer] anticoagulation, hypertension, dyslipidemia, SVT s/p ablation and frequent pneumonia. He follows in the office with Dr. 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 He states his angioplasties were done approxima tely 5-6 years ago in [place] where he lives in the winter months. We have have been asked to see him consultation for a-fib with RVR. He presented to the hospital with symptoms of cough, fever/chills. At home he coughed up some bright red blood a few times, since admission he has only noticed some mild red strands within his sputum. He has been diagnosed with pneumonia and is maintained on IV antibiotics. Initial EKG in ER revealed atrial fibrillation with rate 110. He denies significant shortness of breath. He has no chest pain, dizziness or palpitations. He states he cannot typically tell when he is in a- fib. Chest x-ray on admission reveals right mid lower lung zones probable pne umonia. Repeat chest x-ray today reveals extensive focal right mid and lower lung air space disease. Laboratory data reviewed, WBC on admission 13.1 repeat today 8.0, hemoglobin 12.8, platelets 154, INR 1.6, sodium 140, potassium 4.0, creatinine 1.17, cardiac enzymes negative 1. Current cardiac medications include aspirin 81 mg daily, atorvastatin 40 mg daily, that he had 10 mg daily, Lasix 20 mg daily, lisinopril 10 mg twice a day, Toprol 25 mg at bedtime, amlodipine 10 mg daily and Coumadin. Most recent echocardiogram obtained 2017 reveals preserved LV systolic function with EF 55-60%, mild-moderate MR and mild TR. Most recent catheterization was in 2017 he underwent stenting of the ramus and circumflex with an unsuccessful attempt at angioplasty of the RCA. At the time of my exam: CONSTITUTIONAL: Denies fever. Denies chills. EYES: Denies blurred vision. Denies vision changes. Denies eye pain. EARS, NOSE, MOUTH & THROAT: Denies headache. Denies sore throat. Denies ear pain. CARDIOVASCULAR: Denies chest pain. Denies shortness of breath. Denies orthopnea. Denies PND. Denies palpitations. RESPIRATORY: Complains of cough. GASTROINTESTINAL: Denies abdominal pain. Denies diarrhea. Denies constipation. Denies nausea. Denies vomiting. MUSCULOSKELETAL: Denies myalgias. INTEGUMENTARY: Denies pruitis. Denies rash. NEUROLOGIC: Denies numbness. Denies tingling. Denies weakness. PSYCHIATRIC: Denies anxiety. Denies depression. ENDOCRINE: Denies fatigue. Denies weight change. Denies polydipsia. Denies polyurina. GENITOURINARY: Denies burning, hematuria or urgency with micturation. HEMATOLOGIC: Denies history of anemia. Denies bleeding. Blood pressure 129/76 heart rate 98 afebrile maintaining oxygen saturation on room air GENERAL: This is a 83-year-old male in no apparent distress at the time of my examination. HEENT: Head is atraumatic, normocephalic. Pupils are equal, round. Sclerae anicteric. Conjunctivae are clear. Mucous membranes of the mouth are moist. Neck is supple. There is no jugular venous distention. No carotid bruit is heard. LUNGS: Clear to auscultation no wheezes, rales or rhonchi. No chest wall tenderness is noted on palpation or with deep breathing. HEART: Irregular rate and rhythm with faint systolic ejection murmur at the apex, no rubs or gallops. S1 and S2 heard. ABDOMEN: Soft, nontender. Bowel sounds are heard. No organomegaly noted. EXTREMITIES: No evidence of peripheral edema and no calf tenderness noted. VASCULAR: Radial and dorsalis pedis pulses palpated, no evidence of clubbing. NEUROLOGIC: Patient is awake, alert and oriented x3. ASSESSMENT Chronic persistent atrial fibrillation with mildly rapid ventricular response. Pneumonia Underlying coronary artery disease Hypertension Dyslipidemia History of SVT s/p ablation PLAN Increase toprol to 25 mg BID. Resume coumadin and repeat CBC in the morning. According to the patient he does not take plavix currently. Also confirmed with the office, no plavix listed on med rec as of 08/2018. Discontinue plavix and resume aspirin. Follow CBC in the morning. Thank you kindly for this consultation. Nurse Practitioner note has been reviewed, I agree with a documented findings and plan of care. Patient was seen and examined. 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, previous history of pancreatitis, hiatal hernia History of Any Multi-Drug Resistant Organisms: None Reported Past Surgical History: Appendectomy, Heart Catheterization, Heart Catheterization With Stent, Tonsillectomy Additional Past Surgical History / Comment(s): SKIN GRAFT TO FOREHEAD R/T SKIN CA, skin cancer removed from abdomin, R cataract removed, colonoscopy Past Anesthesia/Blood Transfusion Reactions: No Reported Reaction Date of Last Stent Placement:: 04/2016 Smoking Status: Former smoker - Past Family History Mother Family Medical History: Cancer, Respiratory Disorder Additional Family Medical History / Comment(s): Breast cancer and TB. Father Family Medical History: Cancer Additional Family Medical History / Comment(s): LEUKEMIA Medications and Allergies Home Medications Medication Instructions Recorded Confirmed Type Finasteride [Proscar] 5 mg PO DAILY 11/29/14 10/19/18 History Multivit-Min/FA/Lycopene/Lut 1 tab PO DAILY 11/29/14 10/19/18 History [Centrum Silver Tablet] Atorvastatin Calcium [Lipitor] 40 mg PO HS 07/07/15 10/19/18 History Metoprolol Succinate (ER) [Toprol 25 mg PO HS 07/07/15 10/19/18 History XL] Furosemide [Lasix] 20 mg PO DAILY 10/02/16 10/19/18 History Warfarin [Coumadin] 2.5 mg PO MOWEFR 10/02/16 10/19/18 History Warfarin [Coumadin] 5 mg PO SUTUTHSA 10/02/16 10/19/18 History Lisinopril [Zestril] 10 mg PO Q12H tab 10/06/16 10/19/18 Rx Tamsulosin [Flomax] 0.4 mg PO BID cap 10/06/16 10/19/18 Rx amLODIPine [Norvasc] 10 mg PO DAILY tab 10/06/16 10/19/18 Rx Aspirin EC [Ecotrin Low Dose] 81 mg PO HS 10/19/18 10/19/18 History Ezetimibe [Zetia] 10 mg PO DAILY 10/19/18 10/19/18 History Allergies Allergy/AdvReac Type Severity Reaction Status Date / Time venom-honey bee Allergy Swelling Verified 10/19/18 08:04 [bee venom (honey bee)] Physical Exam Vitals: Vital Signs Temp Pulse Resp BP Pulse Ox 10/20/18 08:53 98 135/81 91 L 10/20/18 04:34 98.2 F 69 16 98/63 93 L 10/20/18 00:00 78 16 10/19/18 20:53 97.6 F 78 16 98/60 91 L 10/19/18 12:06 97.8 F 92 20 137/81 92 L Intake and Output 10/19/18 10/20/18 10/20/18 22:59 06:59 14:59 Intake Total 520 540 Balance 520 540 Intake: Intake, IV Titration 100 300 Amount Sodium Chloride 0.9% 1, 100 300 000 ml @ 50 mls/hr IV . Q20H [facility] Rx#:[id number] Oral 420 240 Other: # Voids 2 1 Results 10/20/18 09:27 10/20/18 09:27 Cardiac Enzymes 10/20/18 Range/Units 09:27 AST 22 (17-59) U/L Coagulation 10/20/18 Range/Units 09:27 PT 16.2 H (9.0-12.0) sec CBC 10/20/18 Range/Units 09:27 WBC 8.0 (3.8-10.6) k/uL RBC 4.30 (4.30-5.90) m/uL Hgb 12.8 L (13.0-17.5) gm/dL Hct 40.5 (39.0-53.0) % Plt Count 154 (150-450) k/uL Comprehensive Metabolic Panel 10/20/18 Range/Units 09:27 Sodium 140 (137-145) mmol/L Potassium 4.0 (3.5-5.1) mmol/L Chloride 106 (98-107) mmol/L Carbon Dioxide 28 (22-30) mmol/L BUN 24 H (9-20) mg/dL Creatinine 1.17 (0.66-1.25) mg/dL Glucose 160 H (74-99) mg/dL Calcium 8.5 (8.4-10.2) mg/dL AST 22 (17-59) U/L ALT 40 (21-72) U/L Alkaline Phosphatase 65 (38-126) U/L Total Protein 5.6 L (6.3-8.2) g/dL Albumin 3.3 L (3.5-5.0) g/dL Current Medications Generic Name Dose Route Start Last Admin Trade Name Freq PRN Reason Stop Dose Admin Amlodipine Besylate 10 mg 10/19/18 09:00 10/20/18 08:55 Norvasc PO 10 mg DAILY [facility] Administration Atorvastatin Calcium 40 mg 10/19/18 21:00 10/19/18 20:13 Lipitor PO 40 mg HS [facility] Administration Azithromycin 500 mg 10/20/18 06:00 10/20/18 04:52 Zithromax PO 500 mg DAILY@0600 [facility] Administration Docusate Sodium 100 mg 10/19/18 11:45 10/20/18 08:55 Colace PO 100 mg BID [facility] Administration Finasteride 5 mg 10/19/18 09:00 10/20/18 08:55 Proscar PO 5 mg DAILY [facility] Administration Ceftriaxone Sodium 1 gm/ 50 mls @ 100 mls/hr 10/20/18 05:30 10/20/18 04:52 Sodium Chloride IVPB 100 mls/hr Q24H [facility] Administration Sodium Chloride 1,000 mls @ 50 mls/hr 10/19/18 12:00 10/20/18 09:06 Saline 0.9% IV Not Given .Q20H [facility] Lisinopril 10 mg 10/19/18 09:00 10/20/18 08:55 Zestril PO 10 mg Q12H [facility] Administration Metoprolol Succinate 25 mg 10/19/18 21:00 10/19/18 20:13 Toprol Xl PO 25 mg HS [facility] Administration Miscellaneous Information 1 each 10/19/18 05:11 Pneumonia Protocol Utilized PO ONCE PRN Per Protocol Multivitamins 1 each 10/19/18 09:00 10/20/18 08:55 Theragran PO 1 each DAILY [facility] Administration Tamsulosin HCl 0.4 mg 10/19/18 09:00 10/20/18 08:55 Flomax PO 0.4 mg BID [facility] Administration Warfarin Sodium 5 mg 10/20/18 18:00 Coumadin PO 10/20/18 18:01 ONCE@1800 ONE Intake and Output 10/19/18 10/20/18 10/20/18 22:59 06:59 14:59 Intake Total 520 540 Balance 520 540 Intake: Intake, IV Titration 100 300 Amount Sodium Chloride 0.9% 1, 100 300 000 ml @ 50 mls/hr IV . Q20H [facility] Rx#:[id number] Oral 420 240 Other: # Voids 2 1 10/20/18 09:27 10/20/18 09:27
[2018-10-20] MEDS ORDERED: WARFARIN 5 MG TAB PO ONE (18:00)
[2018-10-20] MEDS ORDERED: WARFARIN 2.5 MG TAB PO SCH (18:00)
[2018-10-20] MEDS: METOPROLOL SUCCINATE (ER) 25 MG TAB.ER.24H PO SCH (20:37)
[2018-10-20] MEDS: ATORVASTATIN 40 MG TAB PO SCH (20:37)
[2018-10-20] MEDS: ASPIRIN 81 MG PO SCH (20:38)
[2018-10-21] MEDS: AZITHROMYCIN 500 MG TAB PO SCH (05:09)
[2018-10-21] MEDS: amLODIPine 10 MG TAB PO SCH (07:27)
[2018-10-21] MEDS: DOCUSATE 100 MG CAP PO SCH ×2 (07:27→21:09)
[2018-10-21] MEDS: FUROSEMIDE 20 MG TAB PO SCH (07:27)
[2018-10-21] MEDS: LISINOPRIL 10 MG TAB PO SCH ×2 (07:28→21:09)
[2018-10-21] MEDS: METOPROLOL SUCCINATE (ER) 25 MG TAB.ER.24H PO SCH (07:28)
[2018-10-21] MEDS: TAMSULOSIN 0.4 MG CAP.ER.24H PO SCH ×2 (07:28→21:09)
[2018-10-21] MEDS: MULTIVITAMINS, THERA 1 EACH TAB PO SCH (07:28)
[2018-10-21] MEDS: FINASTERIDE 5 MG TAB PO SCH (07:29)
[2018-10-21] MEDS ORDERED: METOPROLOL SUCCINATE (ER) 25 MG TAB.ER.24H PO STA (07:42)
[2018-10-21] MEDS ORDERED: CLOPIDOGREL 75 MG TAB PO SCH (09:00)
[2018-10-21 09:15] LABS: Basophils % (A) 0 %; Eosinophils # (A) 0.1 k/uL (0-0.7); Eosinophils % (A) 1 %; HCT 40.9 % (39.0-53.0); HGB 13.3 gm/dL (13.0-17.5); Lymphocytes # (A) 0.7 k/uL (1.0-4.8); Lymphocytes % (A) 8 %; MCH 30.6 pg (25.0-35.0); MCHC 32.6 g/dL (31.0-37.0); MCV 93.9 fL (80.0-100.0); Mean Platelet Volume 8.3; Monocytes # (A) 0.5 k/uL (0-1.0); Monocytes % (A) 6 %; Neutrophils # (A) 7.2 k/uL (1.3-7.7); Neutrophils % (A) 84 %; Platelet Count 142 k/uL (150-450); RBC 4.36 m/uL (4.30-5.90); RDW 15.8 % (11.5-15.5); WBC 8.6 k/uL (3.8-10.6)
[2018-10-21 09:20] LABS: INR 1.8 (<1.2); Prothrombin Time 18.1 sec (9.0-12.0)
[2018-10-21 09:35] LABS: Albumin 3.4 g/dL (3.5-5.0); Calcium 8.7 mg/dL (8.4-10.2); Potassium 3.9 mmol/L (3.5-5.1); Total Bilirubin 1.3 mg/dL (0.2-1.3); Total Protein 5.9 g/dL (6.3-8.2)
--- NOTE | 2018-10-21 09:35 | PN ---
PROGRESS NOTE Mr. Selby is a gentleman with history of CAD. He also has paroxysmal supraventricular tachycardia, symptomatic for which he had an ablation performed. He has chronic persistent atrial fibrillation. He came into the hospital with pneumonia which is being addressed with antibiotics. He is improving clinically. He remains in atrial fib. The rate is better controlled compared to yesterday. His blood pressure is good. He is ambulating without symptoms. He may be discharged. I am recommending that we should have a PT/INR checked and at least it should be in the range of 1.8 before discharge. I would recommend that we give an additional Coumadin today earlier. Otherwise, he can be discharged after taking an additional Coumadin earlier today, but patient can certainly be discharged from my standpoint. I have asked him to take metoprolol succinate 50 mg every morning as opposed to 37.5. I will see him in the office as per scheduled appointment. Blood pressure today is 118/70, pulse rate is 88 per minute, irregular. No JVD. S1-S2 heard normally. Short systolic murmur noted. Lungs revealed decent air entry. Abdomen and lower extremity exam is unchanged. MMODL / IJN: [id number] /
--- NOTE | 2018-10-21 12:57 | P.PN ---
Subjective Progress Note Date: 10/21/18 Principal diagnosis: Acute right-sided pneumonia. 83-year-old female patient, known history of coronary artery disease with previous coronary stenting, known history of a small pericardial effusion, history of chronic atrial fibrillation, along with hypertension and hyperlipidem ia and previous history of SVT that has required cardiac ablation. The patient came into the ED 3 AM with cough and chills and she was found to be quite tachycardic with a heart rate in the 1:30 range. She was in atrial fibrillation with rapid ventricular response. She was denying any significant shortness of breath. She was reporting cough with mucus and small chunks of blood. Note that the patient has been on a combination of warfarin and Plavix on outpatient basis and her INR at the time of admission was 1.5 with a platelet count of 172. Chest X and showed a as consolidation of the right lung involving the right middle lobe and the right lower lobe area consistent with underlying pneumonia. No reported aspiration pain no nausea. No vomiting. She has history of constipation. She was started on accommodation Rocephin and Zithromax and she was admitted to the medical floor. Her last chest x-ray from 08/11/2018 showed no acute cardio pulmonary process. On 10/20/2018 patient seen in follow-up on medical oncology floor, she is awake and alert, he is in no acute distress, denies any dyspnea, room air pulse ox is 91-93%, denies any chest pain, still bringing up some sputum with small amount of blood in it, no significant hemoptysis, he is afebrile, she does get short of breath with exertion, but otherwise she looks pretty comfortable at rest. Lung sounds reveal some fine crackles in the right lung, in the upper and lower lobes. No significant rhonchi, wheezing, today's labs show improvement in patient's leukocytosis, white blood cell count is 8.0, hemoglobin is 12.8, INR today is 1.6, electrolytes were within normal limits, BUN is 24 creatinine is 1.17. Urinalysis was negative for any sign of infection. Blood culture is negative, patient is on a combination of Zithromax and Rocephin. The patient is seen today in 10/21/2018 in follow-up on the regular medical floor. He is currently sitting up in a bedside. Awake and alert in no acute distress. Breathing easier today as compared to yesterday. Still with a loose productive cough. No fever, no chills or night sweats. Maintaining good O2 saturations in the 90s on room air. He's afebrile. Hemodynamically stable. Blood culture reveals no growth. White count 8.6. Hemoglobin 13.3. INR 1.8. Creatinine 1.02. Objective - Vital Signs Vital signs: Vital Signs Temp 98.1 F 10/21/18 05:00 Pulse 92 10/21/18 07:37 Resp 16 10/21/18 07:37 BP 115/65 10/21/18 05:00 Pulse Ox 92 L 10/21/18 05:00 Intake & Output 10/20/18 10/21/18 10/21/18 18:59 06:59 18:59 Other: # Voids 3 3 2 # Bowel Movements 1 1 1 - Exam GENERAL EXAM: Alert, very pleasant, 83-year-old white male, on room air, comfortable in no apparent distress. HEAD: Normocephalic/atraumatic. EYES: Normal reaction of pupils, equal size. Conjunctiva pink, sclera white. NOSE: Clear with pink turbinates. THROAT: No erythema or exudates. NECK: No masses, no JVD, no thyroid enlargement, no adenopathy. CHEST: No chest wall deformity. Symmetrical expansion. LUNGS: Equal air entry with fine crackles over right upper and right lower lobes, but no wheeze, rhonchi or dullness. CVS: Regular rate and rhythm, normal S1 and S2, no gallops, no murmurs, no rubs ABDOMEN: Soft, nontender. No hepatosplenomegaly, normal bowel sounds, no guarding or rigidity. EXTREMITIES: No clubbing, no edema, no cyanosis, 2+ pulses and upper and lower extremities. MUSCULOSKELETAL: Muscle strength and tone normal. SPINE: No scoliosis or deformity SKIN: No rashes CENTRAL NERVOUS SYSTEM: No focal deficits, tone is normal in all 4 extremities. PSYCHIATRIC: Alert and oriented -3. Appropriate affect. Intact judgment and insight. - Labs CBC & Chem 7: 10/21/18 08:42 10/21/18 08:42 Labs: Abnormal Lab Results - Last 24 Hours (Table) 10/21/18 10/21/18 10/21/18 Range/Units 08:42 08:42 08:42 RDW 15.8 H (11.5-15.5) % Plt Count 142 L (150-450) k/uL Lymphocytes # 0.7 L (1.0-4.8) k/uL PT 18.1 H (9.0-12.0) sec INR 1.8 H (<1.2) Glucose 158 H (74-99) mg/dL Total Protein 5.9 L (6.3-8.2) g/dL Albumin 3.4 L (3.5-5.0) g/dL Microbiology - Last 24 Hours (Table) 10/19/18 04:48 Blood Culture - Preliminary Blood No Growth after 48 hours Assessment and Plan Assessment: Assessment: 1 acute right-sided pneumonia, likely bipolar involving the right middle and right lower lobe. Currently on a combination of Rocephin and Zithromax. Present with tachycardia some increased shortness of breath without any signi ficant hypoxemia. The patient is hemodynamically stable at this point in time, no hypotension, no altered mentation 2 acute kidney injury, active secondary to above 3 acute hypoxic respiratory failure secondary to above 4 chronic atrial fibrillation with rapid ventricular response at time of adm ission, the heart rate response is improving and the patient's PT/INR is subtherapeutic at this point in time with an INR of 1.5. The echocardiogram from 10/04/2016 showed a preserved LV function without any systolic or diastolic heart failure. 5 hypertension 6 coronary artery disease with previous coronary stenting 7 history of SVT with previous ablation 8 BPH 9 small pericardial effusion noted on previous CAT scans of the abdomen and echocardiogram from 2017 10 mild leukocytosis 11 mild hemoptysis secondary to above Plan: The patient was seen and evaluated by Dr. Neff. He is improved today as compared to yesterday. We'll repeat a chest x-ray in the a.m. Continue the current treatment plan. Increase his activity as tolerated. We'll continue to follow. I, the cosigning physician, performed a history & physical examination of the patient. Lungs sounds few scattered crackles in the right lung. Maintaining good O2 saturations in the 90s on room air. I discussed the assessment and plan of care with my nurse practitioner, Yamileth Lentz. I attest to the above note as dictated by her.
--- NOTE | 2018-10-21 14:07 | P.PN ---
Subjective Progress Note Date: 10/21/18 This is a 83-year-old male with a known history of chronic atrial fibrillation anticoagulated with Coumadin, hyperlipidemia, hypertension, cardiology disease with previous cardiac stents, SVT with previous ablation. Patient presents to the ER after waking up around 3:00 this morning with significant cough and chills. He's reports that he's had pneumonia 4 times the past and this is how it starts. Prior to that he had been in good health and had gone out to eat even the night before. Patient had chest x-ray completed in the ER showing findings that most suggestive of pneumonia within the right mid lower lung zones. And cardiomegaly. Patient was started on Rocephin and azithromycin. White count elevated at 13.1. Patient did have evidence of tachycardia with a heart rate as high as 136. EKG showing atrial fibrillation with a heart rate of 110. Patient denies any chest pain or shortness of breath. Denies a nausea or vomiting. Denies any burning with urination. He is reporting some constipation 2 days since his last bowel movement. He also reports coughing up small chunks of blood. Plavix and Coumadin were held today. Patient's cardiac stents were placed between 2-3 years ago per patient. Patient is also slightly dehydrated with a creatinine of 1.28 10/20/2018 patient lying in bed comfortably. Reports that he is feeling better. He denies any chest pain or shortness of breath. Reports improvement in his cough. Patient's sputum is still has some stringy blood noted in it. Coumadin was restarted yesterday. Plavix was held. Hemoglobin did drop slightly from 15.3-12.8. Patient is followed by both pulmonary and cardiology services. Heart rate is improved. Kidney functions improved creatinine sound 1.17. On telemetry he remains in A. fib heart rate is controlled. WBC has normalized. Patient denies any nausea or vomiting bowel movement changes or urinary symptoms. Patient is on room air satting at 91%. Chest x-ray shows extensive focal right mid and lower lungs air space disease persists. Increased/new airspace disease posterior left base. On 10/21/2018 patient was seen and examined on the medical floor he is alert and oriented 3 in no apparent distress he is having occasional cough otherwise no complaints there is no fever or chills no headache or dizziness no chest pain no shortness of breath no nausea or vomiting no abdominal pain no diarrhea and no urinary symptoms Objective - Vital Signs Vital signs: Vital Signs Temp 98.1 F 10/21/18 05:00 Pulse 92 10/21/18 07:37 Resp 16 10/21/18 07:37 BP 115/65 10/21/18 05:00 Pulse Ox 92 L 10/21/18 05:00 Intake & Output 10/20/18 10/21/18 10/21/18 18:59 06:59 18:59 Other: # Voids 3 3 2 # Bowel Movements 1 1 1 - Exam In general patient is alert and oriented 3 in no apparent distress Head normocephalic and atraumatic Neck supple no JVD no goiter Lungs clear to auscultation bilaterally no wheezing or crackles Heart regular rate and rhythm S1-S2, no rub or gallop Abdomen is soft nontender nondistended positive bowel sounds no hepatosplenomegaly Extremities no edema no cyanosis or clubbing Neuro alert and orientated to 3 - Labs CBC & Chem 7: 10/21/18 08:42 10/21/18 08:42 Labs: Abnormal Lab Results - Last 24 Hours (Table) 10/21/18 10/21/18 10/21/18 Range/Units 08:42 08:42 08:42 RDW 15.8 H (11.5-15.5) % Plt Count 142 L (150-450) k/uL Lymphocytes # 0.7 L (1.0-4.8) k/uL PT 18.1 H (9.0-12.0) sec INR 1.8 H (<1.2) Glucose 158 H (74-99) mg/dL Total Protein 5.9 L (6.3-8.2) g/dL Albumin 3.4 L (3.5-5.0) g/dL Microbiology - Last 24 Hours (Table) 10/19/18 04:48 Blood Culture - Preliminary Blood No Growth after 48 hours Assessment and Plan Plan: 1. Right sided pneumonia with cough and chills. Chest x-ray now showing evidence of airspace disease also on the left. Currently on Rocephin and azithromycin. Check sputum culture. Pulmonary following. No evidence of any significant hemoptysis. Patient has had stringy blood noted in sputum. Seen by pulmonary. 2. Sepsis present on admission secondary to pneumonia. Blood cultures negative. Continue antibiotics. 3. Acute kidney injury: Resolved with IV fluids. Creatinine 1.28 down to 1.17. Likely due to patient's sepsis and dehydration. 4. Acute hypoxic respiratory failure secondary to pneumonia. Oxygen saturation did drop to 88% patient is now on 2 L satting at 94%. She by pulmonary service. Patient is now on room air satting at 91% 6. History of chronic persistent atrial fibrillation anticoagulated with Coumadin. Patient did have episode of atrial fibrillation with RVR in ER. He remains on telemetry monitoring which shows A. fib with controlled rate. EKG showing atrial fibrillation with rapid ventricular response 7. History of chronic diastolic CHF currently compensated. 8. History of essential hypertension: Blood pressure stable continue current medications 9. Hyperlipidemia continue Lipitor 10. History of prostate disorder continue Flomax 11. History of SVT requiring cardiac ablation 12. History of coronary artery disease with cardiac stents placed about 3 years ago per patient 14. Constipation add Colace GI prophylaxis Protonix and DVT prophylaxis Coumadin Plan Hep-Lock IV fluids Resume home dose of lasix 20mg daily starting tomorrow Resume Plavix 75 mg daily Will give Coumadin 5 mg tonight check PT/INR in a.m. Consult physical therapy
--- NOTE | 2018-10-21 15:07 | XR ---
EXAMINATION TYPE: XR chest 2V DATE OF EXAM: 10/21/2018 COMPARISON: Yesterday HISTORY: Short of breath TECHNIQUE: Frontal and lateral views of the chest are obtained. FINDINGS: There is a 15 cm area of patchy airspace consolidation in the right midlung. There is no h eart failure. Heart appears slightly enlarged. Thoracic aorta is atheromatous. Left lung is fairly cl ear. Mediastinum is not widened. Bony thorax is intact. IMPRESSION: There is right-sided pneumonia unchanged compared to yesterday. No heart failure. No def inite pneumonia on the left side.
[2018-10-21] MEDS ORDERED: WARFARIN 5 MG TAB PO ONE (18:00)
[2018-10-21] MEDS: ASPIRIN 81 MG PO SCH (21:09)
[2018-10-21] MEDS: ATORVASTATIN 40 MG TAB PO SCH (21:09)
[2018-10-22] MEDS: AZITHROMYCIN 500 MG TAB PO SCH (05:06)
[2018-10-22 07:14] LABS: Basophils # (A) 0.1 k/uL (0-0.2); Basophils % (A) 1 %; Eosinophils # (A) 0.2 k/uL (0-0.7); Eosinophils % (A) 3 %; HCT 43.7 % (39.0-53.0); HGB 14.2 gm/dL (13.0-17.5); Lymphocytes # (A) 1.2 k/uL (1.0-4.8); Lymphocytes % (A) 18 %; MCH 30.3 pg (25.0-35.0); MCHC 32.5 g/dL (31.0-37.0); MCV 93.3 fL (80.0-100.0); Mean Platelet Volume 7.8; Monocytes # (A) 0.5 k/uL (0-1.0); Monocytes % (A) 7 %; Neutrophils # (A) 4.8 k/uL (1.3-7.7); Neutrophils % (A) 70 %; Platelet Count 138 k/uL (150-450); RBC 4.68 m/uL (4.30-5.90); RDW 14.6 % (11.5-15.5); WBC 6.9 k/uL (3.8-10.6)
[2018-10-22 07:22] LABS: Albumin 3.8 g/dL (3.5-5.0); Calcium 9.2 mg/dL (8.4-10.2); Potassium 4.6 mmol/L (3.5-5.1); Total Bilirubin 1.4 mg/dL (0.2-1.3); Total Protein 6.6 g/dL (6.3-8.2)
[2018-10-22 07:33] LABS: INR 1.9 (<1.2); Prothrombin Time 18.6 sec (9.0-12.0)
[2018-10-22] MEDS: METOPROLOL SUCCINATE (ER) 50 MG TAB.ER.24H PO SCH (10:03)
[2018-10-22] MEDS: DOCUSATE 100 MG CAP PO SCH ×2 (10:04→20:52)
[2018-10-22] MEDS: MULTIVITAMINS, THERA 1 EACH TAB PO SCH (10:04)
[2018-10-22] MEDS: amLODIPine 10 MG TAB PO SCH (10:04)
[2018-10-22] MEDS: TAMSULOSIN 0.4 MG CAP.ER.24H PO SCH ×2 (10:04→20:52)
[2018-10-22] MEDS: FUROSEMIDE 20 MG TAB PO SCH (10:04)
[2018-10-22] MEDS: FINASTERIDE 5 MG TAB PO SCH (10:04)
[2018-10-22] MEDS: LISINOPRIL 10 MG TAB PO SCH ×2 (10:04→20:46)
--- NOTE | 2018-10-22 12:27 | P.PN ---
Subjective Progress Note Date: 10/22/18 83-year-old female patient, known history of coronary artery disease with previous coronary stenting, known history of a small pericardial effusion, history of chronic atrial fibrillation, along with hypertension and hyperlipidemia and previous history of SVT that has required cardiac ablation. The patient came into the ED 3 AM with cough and chills and she was found to be quite tachycardic with a heart rate in the 1:30 range. She was in atrial fibrillation with rapid ventricular response. She was denying any significant shortness of breath. She was reporting cough with mucus and small chunks of blood. Note that the patient has been on a combination of warfarin and Plavix on outpatient basis and her INR at the time of admission was 1.5 with a platelet count of 172. Chest X and showed a as consolidation of the right lung involving the right middle lobe and the right lower lobe area consistent with underlying pneumonia. No reported aspiration pain no nausea. No vomiting. She has hist ory of constipation. She was started on accommodation Rocephin and Zithromax and she was admitted to the medical floor. Her last chest x-ray from 08/11/2018 showed no acute cardio pulmonary process. On 10/20/2018 patient seen in follow-up on medical oncology floor, she is awake and alert, he is in no acute distress, denies any dyspnea, room air pulse ox is 91-93%, denies any chest pain, still bringing up some sputum with small amount of blood in it, no significant hemoptysis, he is afebrile, she does get short of breath with exertion, but otherwise she looks pretty comfortable at rest. Lung sounds reveal some fine crackles in the right lung, in the upper and lower lobes. No significant rhonchi, wheezing, today's labs show improvement in patient's leukocytosis, white blood cell count is 8.0, hemoglobin is 12.8, INR today is 1.6, electrolytes were within normal limits, BUN is 24 creatinine is 1.17. Urinalysis was negative for any sign of infection. Blood culture is negative, patient is on a combination of Zithromax and Rocephin. The patient is seen today in 10/21/2018 in follow-up on the regular medical floor. He is currently sitting up in a bedside. Awake and alert in no acute distress. Breathing easier today as compared to yesterday. Still with a loose productive cough. No fever, no chills or night sweats. Maintaining good O2 saturations in the 90s on room air. He's afebrile. Hemodynamically stable. Blood culture reveals no growth. White count 8.6. Hemoglobin 13.3. INR 1.8. Creatinine 1.02. On 10/22/2018, the patient is ambulating., Comfortable. On room air oxygen. The follow-up chest x-ray was done and shows improvement in the right upper lobe consolidation compared to the chest x-ray as well as on admission on 10/19/2018. The patient's cultures of been all negative. Responded nicely to antibiotics. No fever. No chills. No pleurisy. The blood cultures been also negative. He remains on a combination of Rocephin and Zithromax. Objective - Vital Signs Vital signs: Vital Signs Temp 97.3 F L 10/22/18 12:00 Pulse 87 10/22/18 12:00 Resp 16 10/22/18 12:00 BP 119/74 10/22/18 12:00 Pulse Ox 91 L 10/22/18 12:00 Intake & Output 10/21/18 10/22/18 10/22/18 18:59 06:59 18:59 Intake Total 240 200 Balance 240 200 Intake: Oral 240 200 Other: Voiding Method Toilet Toilet # Voids 3 2 # Bowel Movements 1 - Exam GENERAL EXAM: Alert, very pleasant, 83-year-old white male, on room air, comfortable in no apparent distress. HEAD: Normocephalic/atraumatic. EYES: Normal reaction of pupils, equal size. Conjunctiva pink, sclera white. NOSE: Clear with pink turbinates. THROAT: No erythema or exudates. NECK: No masses, no JVD, no thyroid enlargement, no adenopathy. CHEST: No chest wall deformity. Symmetrical expansion. LUNGS: Equal air entry with fine crackles over right upper and right lower lobes, but no wheeze, rhonchi or dullness. CVS: Regular rate and rhythm, normal S1 and S2, no gallops, no murmurs, no rubs ABDOMEN: Soft, nontender. No hepatosplenomegaly, normal bowel sounds, no guarding or rigidity. EXTREMITIES: No clubbing, no edema, no cyanosis, 2+ pulses and upper and lower extremities. MUSCULOSKELETAL: Muscle strength and tone normal. SPINE: No scoliosis or deformity SKIN: No rashes CENTRAL NERVOUS SYSTEM: No focal deficits, tone is normal in all 4 extremities. PSYCHIATRIC: Alert and oriented -3. Appropriate affect. Intact judgment and insight. - Labs CBC & Chem 7: 10/22/18 06:30 10/22/18 06:30 Labs: Abnormal Lab Results - Last 24 Hours (Table) 10/22/18 10/22/18 10/22/18 Range/Units 06:30 06:30 06:30 Plt Count 138 L (150-450) k/uL PT 18.6 H (9.0-12.0) sec INR 1.9 H (<1.2) BUN 23 H (9-20) mg/dL Glucose 106 H (74-99) mg/dL Total Bilirubin 1.4 H (0.2-1.3) mg/dL Microbiology - Last 24 Hours (Table) 10/19/18 04:48 Blood Culture - Preliminary Blood No Growth after 72 hours Assessment and Plan Plan: 1 acute right-sided pneumonia, likely bipolar involving the right middle and right lower lobe. Currently on a combination of Rocephin and Zithromax. Present with tachycardia some increased shortness of breath without any significant hypoxemia. The patient is hemodynamically stable at this point in time, no hypotension, no altered mentation. Furthermore, his follow-up chest x- ray from today compared to the chest x-ray from admission and the findings are essentially improving slowly although not completely recovered. Meanwhile the p atient not having any hemoptysis. No chest pain. The patient remains hemodynamically stable. 2 acute kidney injury, active secondary to above 3 acute hypoxic respiratory failure secondary to above 4 chronic atrial fibrillation with rapid ventricular response at time of admission, the heart rate response is improving and the patient's PT/INR is subtherapeutic at this point in time with an INR of 1.9. The echocardiogram from 10/04/2016 showed a preserved LV function without any systolic or diastolic heart failure. 5 hypertension 6 coronary artery disease with previous coronary stenting 7 history of SVT with previous ablation 8 BPH 9 small pericardial effusion noted on previous CAT scans of the abdomen and echocardiogram from 2017 10 mild leukocytosis, improved and the white cell count is normalized. 11 mild hemoptysis secondary to above Plan Clinically stable. Antibiotics are working for this patient and the patient has no magistral distress. Chest x-ray compared to the one that was done at time of admission shows improvement in the right upper lobe consolidation although not completely recovered. The patient can be switched to oral antibiotics within the next 24 hours and discharge planning is in progress.
--- NOTE | 2018-10-22 13:53 | P.PN ---
Subjective Progress Note Date: 10/22/18 This is a 83-year-old male with a known history of chronic atrial fibrillation anticoagulated with Coumadin, hyperlipidemia, hypertension, cardiology disease with previous cardiac stents, SVT with previous ablation. Patient presents to the ER after waking up around 3:00 this morning with significant cough and chills. He's reports that he's had pneumonia 4 times the past and this is how it starts. Prior to that he had been in good health and had gone out to eat even the night before. Patient had chest x-ray completed in the ER showing findings that most suggestive of pneumonia within the right mid lower lung zones. And cardiomegaly. Patient was started on Rocephin and azithromycin. White count elevated at 13.1. Patient did have evidence of tachycardia with a heart rate as high as 136. EKG showing atrial fibrillation with a heart rate of 110. Patient denies any chest pain or shortness of breath. Denies a nausea or vomiting. Denies any burning with urination. He is reporting some constipation 2 days since his last bowel movement. He also reports coughing up small chunks of blood. Plavix and Coumadin were held today. Patient's cardiac stents were placed between 2-3 years ago per patient. Patient is also slightly dehydrated with a creatinine of 1.28 10/20/2018 patient lying in bed comfortably. Reports that he is feeling better. He denies any chest pain or shortness of breath. Reports improvement in his cough. Patient's sputum is still has some stringy blood noted in it. Coumadin was restarted yesterday. Plavix was held. Hemoglobin did drop slightly from 15.3-12.8. Patient is followed by both pulmonary and cardiology services. Heart rate is improved. Kidney functions improved creatinine sound 1.17. On telemetry he remains in A. fib heart rate is controlled. WBC has normalized. Patient denies any nausea or vomiting bowel movement changes or urinary symptoms. Patient is on room air satting at 91%. Chest x-ray shows extensive focal right mid and lower lungs air space disease persists. Increased/new airspace disease posterior left base. On 10/21/2018 patient was seen and examined on the medical floor he is alert and oriented 3 in no apparent distress he is having occasional cough otherwise no complaints there is no fever or chills no headache or dizziness no chest pain no shortness of breath no nausea or vomiting no abdominal pain no diarrhea and no urinary symptoms. On 10/22/2018 patient is alert and oriented 3 he is complaining of occasional cough he is complaining of shortness of breath with activity otherwise no complaints, there is no fever or chills no headache or dizziness no chest pain no shortness of breath no cough no nausea or vomiting no abdominal pain no diarrhea and no urinary symptoms Objective - Vital Signs Vital signs: Vital Signs Temp 97.3 F L 10/22/18 12:00 Pulse 87 10/22/18 12:00 Resp 16 10/22/18 12:00 BP 119/74 10/22/18 12:00 Pulse Ox 91 L 10/22/18 12:00 Intake & Output 10/21/18 10/22/18 10/22/18 18:59 06:59 18:59 Intake Total 240 200 Balance 240 200 Intake: Oral 240 200 Other: Voiding Method Toilet Toilet # Voids 3 2 # Bowel Movements 1 - Exam In general patient is alert and oriented 3 in no apparent distress Head normocephalic and atraumatic Neck supple no JVD no goiter Lungs clear to auscultation bilaterally no wheezing or crackles Heart regular rate and rhythm S1-S2, no rub or gallop Abdomen is soft nontender nondistended positive bowel sounds no hepatosplenomegaly Extremities no edema no cyanosis or clubbing Neuro alert and orientated to 3 - Labs CBC & Chem 7: 10/22/18 06:30 10/22/18 06:30 Labs: Abnormal Lab Results - Last 24 Hours (Table) 10/22/18 10/22/18 10/22/18 Range/Units 06:30 06:30 06:30 Plt Count 138 L (150-450) k/uL PT 18.6 H (9.0-12.0) sec INR 1.9 H (<1.2) BUN 23 H (9-20) mg/dL Glucose 106 H (74-99) mg/dL Total Bilirubin 1.4 H (0.2-1.3) mg/dL Microbiology - Last 24 Hours (Table) 10/19/18 04:48 Blood Culture - Preliminary Blood No Growth after 72 hours Assessment and Plan Plan: 1. Right sided pneumonia with cough and chills. Chest x-ray now showing evidence of airspace disease also on the left. Currently on Rocephin and azithromycin. Check sputum culture. Pulmonary following. No evidence of any significant hemoptysis. Patient has had stringy blood noted in sputum. Seen by pulmonary. 2. Sepsis present on admission secondary to pneumonia. Blood cultures negative. Continue antibiotics. 3. Acute kidney injury: Resolved with IV fluids. Creatinine 1.28 down to 1.17. Likely due to patient's sepsis and dehydration. 4. Acute hypoxic respiratory failure secondary to pneumonia. Oxygen saturation did drop to 88% patient is now on 2 L satting at 94%. She by pulmonary service. Patient is now on room air satting at 91% 6. History of chronic persistent atrial fibrillation anticoagulated with Coumadin. Patient did have episode of atrial fibrillation with RVR in ER. He remains on telemetry monitoring which shows A. fib with controlled rate. EKG showing atrial fibrillation with rapid ventricular response 7. History of chronic diastolic CHF currently compensated. 8. History of essential hypertension: Blood pressure stable continue current medications 9. Hyperlipidemia continue Lipitor 10. History of prostate disorder continue Flomax 11. History of SVT requiring cardiac ablation 12. History of coronary artery disease with cardiac stents placed about 3 years ago per patient 14. Constipation add Colace GI prophylaxis Protonix and DVT prophylaxis Coumadin Plan Hep-Lock IV fluids, awaiting sputum culture results continue current IV antibiotics Will give Coumadin 5 mg tonight check PT/INR in a.m. Consult physical therapy
[2018-10-22] MEDS ORDERED: WARFARIN 5 MG TAB PO ONE (18:00)
[2018-10-22] MEDS: ATORVASTATIN 40 MG TAB PO SCH (20:53)
[2018-10-22] MEDS: ASPIRIN 81 MG PO SCH (20:53)
[2018-10-23] MEDS: AZITHROMYCIN 500 MG TAB PO SCH (05:36)
[2018-10-23 05:39] VITALS: BP 122/68; PULSE 91; RESP 16; TEMP 97.8
[2018-10-23 07:55] LABS: Basophils % (A) 0 %; Eosinophils # (A) 0.2 k/uL (0-0.7); Eosinophils % (A) 4 %; HCT 39.7 % (39.0-53.0); HGB 13.1 gm/dL (13.0-17.5); Lymphocytes % (A) 20 %; MCH 30.3 pg (25.0-35.0); MCHC 33.1 g/dL (31.0-37.0); MCV 91.6 fL (80.0-100.0); Mean Platelet Volume 7.6; Monocytes # (A) 0.4 k/uL (0-1.0); Monocytes % (A) 7 %; Neutrophils # (A) 3.3 k/uL (1.3-7.7); Neutrophils % (A) 65 %; Platelet Count 154 k/uL (150-450); RBC 4.33 m/uL (4.30-5.90); RDW 14.4 % (11.5-15.5); WBC 5.1 k/uL (3.8-10.6)
[2018-10-23 08:01] LABS: INR 2.3 (<1.2); Prothrombin Time 22.1 sec (9.0-12.0)
[2018-10-23 08:12] LABS: Albumin 3.1 g/dL (3.5-5.0); Calcium 8.6 mg/dL (8.4-10.2); Potassium 3.5 mmol/L (3.5-5.1); Total Bilirubin 0.9 mg/dL (0.2-1.3); Total Protein 5.6 g/dL (6.3-8.2)
[2018-10-23] MEDS: TAMSULOSIN 0.4 MG CAP.ER.24H PO SCH (08:18)
[2018-10-23] MEDS: DOCUSATE 100 MG CAP PO SCH (08:18)
[2018-10-23] MEDS: FUROSEMIDE 20 MG TAB PO SCH (08:18)
[2018-10-23] MEDS: METOPROLOL SUCCINATE (ER) 50 MG TAB.ER.24H PO SCH (08:18)
[2018-10-23] MEDS: MULTIVITAMINS, THERA 1 EACH TAB PO SCH (08:18)
[2018-10-23] MEDS: amLODIPine 10 MG TAB PO SCH (08:18)
[2018-10-23] MEDS: LISINOPRIL 10 MG TAB PO SCH (08:18)
[2018-10-23] MEDS: FINASTERIDE 5 MG TAB PO SCH (08:18)
[2018-10-23] MEDS ORDERED: POTASSIUM CHLORIDE ER 20 MEQ TAB.ER PO STA (09:19)
--- NOTE | 2018-10-23 10:05 | P.DS ---
Providers Date of admission: 10/19/18 05:16 Expected date of discharge: 10/23/18 Attending physician: Joaquim Soni Consults: 10/19/18 11:54 Consult Physician Routine Consulting Provider: Dionte Neff Consult Reason/Comments: pneumonia, hemoptysis, acute respiratory failure Do you want consulting provider notified?: Yes 10/19/18 12:53 Consult Physician Routine Consulting Provider: Arik Malcolm Consult Reason/Comments: afib RVR Do you want consulting provider notified?: Yes Primary care physician: Piyush Gutierrez [facility] Course: Discharge diagnosis 1. Community-acquired Right sided pneumonia with cough and chills. Chest x-ray showing improvement. Patient is been cleared by pulmonary service for discharge. He will continue Ceftin and azithromycin for 6 more days. Sputum culture pending No evidence of any significant hemoptysis. 2. Sepsis present on admission secondary to pneumonia. Blood cultures negative. 3. Acute kidney injury: Resolved with IV fluids. Creatinine 1.28 down to 1.17. Likely due to patient's sepsis and dehydration. 4. Acute hypoxic respiratory failure secondary to pneumonia. Oxygen saturation did drop to 88% patient is now on 2 L satting at 94%. She by pulmonary service. Patient is now on room air satting at 91% 6. History of chronic persistent atrial fibrillation anticoagulated with Coumadin. Patient did have episode of atrial fibrillation with RVR in ER. He remains on telemetry monitoring which shows A. fib with controlled rate. EKG showing atrial fibrillation with rapid ventricular response. Patient seen by cardiology. Metoprolol increased to 50 mg daily 7. History of chronic diastolic CHF currently compensated. 8. History of essential hypertension: Blood pressure stable continue current medications 9. Hyperlipidemia continue Lipitor 10. History of prostate disorder continue Flomax 11. History of SVT requiring cardiac ablation 12. History of coronary artery disease with cardiac stents placed about 3 years ago per patient 14. Constipation improved with Colace 15. Hypokalemia: Potassium 3.5. Patient received supplement prior to discharge. Recommend checking BMP in 3 days Hospital course This is a 83-year-old male with a known history of chronic atrial fibrillation anticoagulated with Coumadin, hyperlipidemia, hypertension, cardiology disease with previous cardiac stents, SVT with previous ablation. Patient presents to the ER after waking up around 3:00 this morning with significant cough and chills. He's reports that he's had pneumonia 4 times the past and this is how it starts. Prior to that he had been in good health and had gone out to eat even the night before. Patient had chest x-ray completed in the ER showing findings that most suggestive of pneumonia within the right mid lower lung zones. And cardiomegaly. Patient was started on Rocephin and azithromycin. White count elevated at 13.1. Patient did have evidence of tachycardia with a heart rate as high as 136. EKG showing atrial fibrillation with a heart rate of 110. Patient denies any chest pain or shortness of breath. Denies a nausea or vomiting. Denies any burning with urination. He is reporting some constipation 2 days since his last bowel movement. He also reports coughing up small chunks of blood. Plavix and Coumadin were held today. Patient's cardiac stents were p laced between 2-3 years ago per patient. Patient is also slightly dehydrated with a creatinine of 1.28 10/20/2018 patient lying in bed comfortably. Reports that he is feeling better. He denies any chest pain or shortness of breath. Reports improvement in his cough. Patient's sputum is still has some stringy blood noted in it. Coumadin was restarted yesterday. Plavix was held. Hemoglobin did drop slightly from 15.3-12.8. Patient is followed by both pulmonary and cardiology services. Heart rate is improved. Kidney functions improved creatinine sound 1.17. On telemetry he remains in A. fib heart rate is controlled. WBC has normalized. Patient denies any nausea or vomiting bowel movement changes or urinary symptoms. Patient is on room air satting at 91%. Chest x-ray shows extensive focal right mid and lower lungs air space disease persists. Increased/new airspace disease posterior left base. On 10/21/2018 patient was seen and examined on the medical floor he is alert and oriented 3 in no apparent distress he is having occasional cough otherwise no complaints there is no fever or chills no headache or dizziness no chest pain no shortness of breath no nausea or vomiting no abdominal pain no diarrhea and no urinary symptoms. On 10/22/2018 patient is alert and oriented 3 he is complaining of occasional cough he is complaining of shortness of breath with activity otherwise no complaints, there is no fever or chills no headache or dizziness no chest pain no shortness of breath no cough no nausea or vomiting no abdominal pain no diarrhea and no urinary symptoms 10/23/2018 patient's symptoms have shown improvement. Chest x-ray showing slow improvement. Patient has had no fevers and white count has normalized. Patient has been cleared by both pulmonary service and cardiology for discharge. He'll follow up with cardiology and pulmonary services in the office in the next 1-2 weeks. Patient will be discharged with Ceftin and azithromycin for 6 more days to complete a ten-day treatment for his pneumonia. His INR is therapeutic at 2.3. We'll resume his home dose of Coumadin. We'll have him follow up with Dr. Vyas in 3 days for hospital follow-up. At that time recommend checking PT/INR and BMP level. Patient is medically stable for discharge. I performed an examination of the patient and discussed their management with the physician Professional Athlete. I have reviewed the Physician Professional Athlete's notes and agree with the documented findings and plan of care Patient Condition at Discharge: Stable Plan - Discharge Summary Discharge Rx Participant: No New Discharge Prescriptions: New Cefuroxime Axetil [Ceftin] 500 mg PO BID #12 tab Metoprolol Succinate (ER) [Toprol XL] 50 mg PO DAILY #30 tab.er.24h Azithromycin [Zithromax] 500 mg PO DAILY@0600 #6 tab Continue Multivit-Min/FA/Lycopene/Lut [Centrum Silver Tablet] 1 tab PO DAILY Finasteride [Proscar] 5 mg PO DAILY Atorvastatin Calcium [Lipitor] 40 mg PO HS Warfarin [Coumadin] 2.5 mg PO MOWEFR Warfarin [Coumadin] 5 mg PO SUTUTHSA Furosemide [Lasix] 20 mg PO DAILY amLODIPine [Norvasc] 10 mg PO DAILY tab Lisinopril [Zestril] 10 mg PO Q12H tab Tamsulosin [Flomax] 0.4 mg PO BID cap Ezetimibe [Zetia] 10 mg PO DAILY Aspirin EC [Ecotrin Low Dose] 81 mg PO HS Discontinued Metoprolol Succinate (ER) [Toprol XL] 25 mg PO HS Discharge Medication List Finasteride [Proscar] 5 mg PO DAILY 11/29/14 [History] Multivit-Min/FA/Lycopene/Lut [Centrum Silver Tablet] 1 tab PO DAILY 11/29/14 [History] Atorvastatin Calcium [Lipitor] 40 mg PO HS 05/23/16 [History] Furosemide [Lasix] 20 mg PO DAILY 10/02/16 [History] Warfarin [Coumadin] 2.5 mg PO MOWEFR 10/02/16 [History] Warfarin [Coumadin] 5 mg PO SUTUTHSA 10/02/16 [History] Lisinopril [Zestril] 10 mg PO Q12H tab 10/06/16 [Rx] Tamsulosin [Flomax] 0.4 mg PO BID cap 10/06/16 [Rx] amLODIPine [Norvasc] 10 mg PO DAILY tab 10/06/16 [Rx] Aspirin EC [Ecotrin Low Dose] 81 mg PO HS 10/19/18 [History] Ezetimibe [Zetia] 10 mg PO DAILY 10/19/18 [History] Azithromycin [Zithromax] 500 mg PO DAILY@0600 #6 tab 10/23/18 [Rx] Cefuroxime Axetil [Ceftin] 500 mg PO BID #12 tab 10/23/18 [Rx] Metoprolol Succinate (ER) [Toprol XL] 50 mg PO DAILY #30 tab.er.24h 10/23/18 [Rx] Follow up Appointment(s)/Referral(s): Joanne Deutsch MD [STAFF PHYSICIAN] - 2 Weeks Piyush Vyas MD [Primary Care Provider] - 3 Days Dionte Neff MD [STAFF PHYSICIAN] - 1 Week Ambulatory/Diagnostic Orders: Prothrombin Time INR [LAB.AMB] Time Frame: 3 Days, Location: None Selected Activity/Diet/Wound Care/Special Instructions: Diet: cardiac Activity: as tolerated Check PT/INR, BMP in 3 days Discharge Disposition: HOME SELF-CARE
== END 2018-10-23 11:47 | disposition home or self-care (01) | DRG 871 ==
LOC: EC 03:47 → 3NMEDONC 05:16
PROVIDERS: ADMIT Internal Medicine; ATTEND Internal Medicine
DX: A41.9 Sepsis, unspecified organism (principal); J18.9 Pneumonia, unspecified organism; J96.01 Acute respiratory failure with hypoxia; I48.1 Persistent atrial fibrillation; I50.32 Chronic diastolic (congestive) heart failure; N17.9 Acute kidney failure, unspecified; E78.5 Hyperlipidemia, unspecified; E86.0 Dehydration; I11.0 Hypertensive heart disease with heart failure; I25.10 Atherosclerotic heart disease of native coronary artery without angina pectoris; K59.00 Constipation, unspecified; N40.0 Benign prostatic hyperplasia without lower urinary tract symptoms; Z79.01 Long term (current) use of anticoagulants; Z79.02 Long term (current) use of antithrombotics/antiplatelets; Z79.82 Long term (current) use of aspirin; Z79.899 Other long term (current) drug therapy; Z80.3 Family history of malignant neoplasm of breast; Z80.6 Family history of leukemia; Z85.820 Personal history of malignant melanoma of skin; Z87.01 Personal history of pneumonia (recurrent); Z87.891 Personal history of nicotine dependence; Z95.5 Presence of coronary angioplasty implant and graft; Z91.030 Bee allergy status; Z90.49 Acquired absence of other specified parts of digestive tract; Z90.89 Acquired absence of other organs; Z98.890 Other specified postprocedural states
CPT/HCPCS: 36415; 71046; 80053; 81001; 83605; 84484; 85025; 85610; 85730; 87040; 87070; 87205; 90732; 93005; 96365; 99284